=== PATIENT | female | born 1935 | race Caucasian/White ===

== ENCOUNTER 2019-10-31 01:27 | Inpatient (IN) | payer MEDICARE, BC ==
[2019-10-31] MEDS ORDERED: NALOXONE 0.4 MG/ML 1 ML VIAL IV PRN (02:24)
[2019-10-31] MEDS: SODIUM CHLORIDE 0.9% 1,000 ML IV SCH ×3 (02:55→21:18)
[2019-10-31] MEDS: MORPHINE SULFATE 4 MG/ML SYRINGE IV PRN ×2 (03:24→11:26)
--- NOTE | 2019-10-31 03:48 | ED ---
Abdominal Pain HPI - General Chief Complaint: Abdominal Pain Stated Complaint: Abd pain Time Seen by Provider: 10/31/19 01:57 Source: patient, EMS Mode of arrival: EMS Limitations: no limitations - History of Present Illness Initial Comments: This patient is an 84-year-old woman who arrives here is transferred from [facility], where she had gone this evening to be evaluated for abdominal pain. The patient states that it felt very similar to previous episode of bowel obstruction that she had had. The patient had a computed tomography scan performed there which showed ileus versus small bowel obstruction, with concern for possible malignant obstruction. In light of this patient transferred here for further evaluation and treatment. MD Complaint: abdominal pain -: hour(s) Location: LUQ, LLQ Radiation: none Migration to: no migration Severity: moderate Quality: cramping, fullness Consistency: constant Improves With: nothing Worsens With: nothing Associated Symptoms: constipation - Related Data Allergies Allergy/AdvReac Type Severity Reaction Status Date / Time nitrofurantoin Allergy Unknown Verified 10/31/19 01:44 [From Macrobid] Cfikenr-Vnl-Jxg Reductase Allergy Unknown Verified 10/31/19 01:44 Inhibitor cortisone AdvReac Unknown Verified 10/31/19 01:44 Review of Systems ROS Statement: Those systems with pertinent positive or pertinent negative responses have been documented in the HPI. ROS Other: All systems not noted in ROS Statement are negative. Constitutional: Denies: fever, chills Respiratory: Denies: cough, dyspnea Cardiovascular: Denies: chest pain, palpitations Gastrointestinal: Reports: as per HPI, abdominal pain, constipation. Denies: nausea, vomiting, diarrhea, hematemesis, melena, hematochezia Genitourinary: Denies: dysuria, hematuria Musculoskeletal: Denies: back pain Skin: Denies: rash Neurological: Denies: headache, weakness, numbness Past Medical History Past Medical History: COPD, Hyperlipidemia, Hypertension, Thyroid Disorder History of Any Multi-Drug Resistant Organisms: None Reported Past Surgical History: Appendectomy, Cholecystectomy, Hysterectomy Additional Past Surgical History / Comment(s): lung removal, subarachnoid hemmorrhage, AAA repair,. Past Psychological History: No Psychological Hx Reported Smoking Status: Former smoker Past Alcohol Use History: Occasional Past Drug Use History: None Reported General Exam Limitations: no limitations General appearance: alert, in no apparent distress Head exam: Present: atraumatic, normocephalic Eye exam: Present: normal appearance ENT exam: Present: normal oropharynx Respiratory exam: Present: normal lung sounds bilaterally. Absent: respiratory distress, wheezes, rales, rhonchi, stridor Cardiovascular Exam: Present: regular rate, normal rhythm, normal heart sounds. Absent: systolic murmur, diastolic murmur, rubs, gallop GI/Abdominal exam: Present: soft, tenderness (Mild diffuse tenderness without rebound or guarding). Absent: distended, guarding, rebound, rigid, pulsatile mass Extremities exam: Present: normal inspection, normal capillary refill. Absent: pedal edema, calf tenderness Back exam: Present: normal inspection. Absent: CVA tenderness (R), CVA tenderness (L) Neurological exam: Present: alert Skin exam: Present: warm, dry, intact, normal color. Absent: rash Course Vital Signs 10/31/19 10/31/19 01:34 02:57 Temperature 97.8 F 98.1 F Pulse Rate 85 83 Respiratory 20 18 Rate Blood Pressure 128/58 124/73 O2 Sat by Pulse 98 98 Oximetry Disposition Clinical Impression: Abdominal pain, Small bowel obstruction Narrative: Ileus versus small bowel obstruction Disposition: ADMITTED IP TO THIS HOSP Condition: Fair Is patient prescribed a controlled substance at d/c from ED?: No
[2019-10-31] MEDS ORDERED: ALBUTEROL NEBULIZED 2.5 MG/3 ML INHALATION PRN (10:59)
[2019-10-31] MEDS: amLODIPine 5 MG TAB PO SCH (11:26)
[2019-10-31] MEDS: LOSARTAN 50 MG TAB PO SCH (11:26)
[2019-10-31] MEDS: SYMBICORT 160-4.5 MCG INHALER INHALATION SCH ×2 (12:00→21:47)
--- NOTE | 2019-10-31 13:43 | P.GSCN ---
History of Present Illness Consult date: 10/31/19 Reason for Consult: Abdominal pain History of present illness: The patient is a pleasant 84-year-old female who is transferred from [facility] for abdominal pain. She had an episode of similar pain recently and was treated at [facility]. Sounds like she had a nasogastric tube placed a couple of days and got better. The patient had been taking fiber supplements and Dulcolax daily and had felt a little better. She developed pain in the left lower quadrant so returned to the emergency department. Computed tomography scan was concerning for a possible sigmoid colon obstruction. The patient is never had a colonoscopy or barium enema in the past. She does admit to a family history of her mother who was treated with radiation therapy. Patient denies blood in the stools or dark tarry stools. She feels very bloated and distended. 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 She did not have any postoperative radiation) Additional Past Surgical History / Comment(s): left upper lobe lung removal, subarachnoid hemmorrhage, AAA repair Past Psychological History: No Psychological Hx Reported Smoking Status: Former smoker Past Alcohol Use History: Occasional Past Drug Use History: None Reported Medications and Allergies Home Medications Medication Instructions Recorded Confirmed Type ALPRAZolam [Xanax] 0.25 mg PO BID PRN 10/31/19 10/31/19 History Albuterol Inhaler [Ventolin Hfa 2 puff INHALATION RT-QID PRN 10/31/19 10/31/19 History Inhaler] Budesonide-Formot 160-4.5 Mcg 2 puff INHALATION BID 10/31/19 10/31/19 History [Symbicort 160-4.5 Mcg Inhaler] Furosemide [Lasix] 20 mg PO DAILY 10/31/19 10/31/19 History Losartan Potassium 100 mg PO DAILY 10/31/19 10/31/19 History Multivitamins, Thera [Multivitamin 1 tab PO DAILY 10/31/19 10/31/19 History (formulary)] Potassium Chloride [Klor-Con 20] 20 meq PO BID 10/31/19 10/31/19 History Spironolactone 25 mg PO DAILY 10/31/19 10/31/19 History amLODIPine [Norvasc] 5 mg PO DAILY 10/31/19 10/31/19 History Allergies Allergy/AdvReac Type Severity Reaction Status Date / Time nitrofurantoin Allergy Unknown Verified 10/31/19 09:05 [From Macrobid] Wtuafbj-Qog-Lob Reductase Allergy Unknown Verified 10/31/19 09:05 Inhibitor cortisone AdvReac Unknown Verified 10/31/19 09:05 Surgical - Exam Osteopathic Statement: *. No significant issues noted on an osteopathic structural exam other than those noted in the History and Physical/Consult. Vital Signs Temp Pulse Resp BP Pulse Ox 97.8 F 85 20 128/58 98 10/31/19 01:34 10/31/19 01:34 10/31/19 01:34 10/31/19 01:34 10/31/19 01:34 - General well developed, well nourished, no distress - Eyes normal ocular movement - ENT decreased hearing (I have to speak louder but the patient does comprehend everything I am saying) - Respiratory normal expansion, normal respiratory effort, clear to auscultation - Cardiovascular Rhythm: regular - Abdomen Abdomen: non tender, bowel sounds, surgical scars (Lower midline abdominal scar), no guarding, no rigid, no rebound, distended (Tympanitic across the upper abdomen) - Psychiatric oriented to time, oriented to person, oriented to place, speech is normal, memory intact Results - Imaging CT scan - abdomen: report reviewed, image reviewed (Dilation of large and small bowel. Concerning for stricture or obstruction in the sigmoid colon) Assessment and Plan (1) Dilatation of colon Current Visit: Yes Status: Acute Code(s): K59.39 - OTHER MEGACOLON SNOMED Code(s): 659599002 (2) COPD (chronic obstructive pulmonary disease) Current Visit: Yes Status: Acute Code(s): J44.9 - CHRONIC OBSTRUCTIVE PULMONARY DISEASE, UNSPECIFIED SNOMED Code(s): 33596811 (3) Hypertension Current Visit: Yes Status: Acute Code(s): I10 - ESSENTIAL (PRIMARY) HYPERTENSION SNOMED Code(s): 18192305 (4) Hyperlipidemia Current Visit: Yes Status: Acute Code(s): E78.5 - HYPERLIPIDEMIA, UNSPECIFIED SNOMED Code(s): 05958570 Plan: Presentation is concerning for a sigmoid colon stricture. We'll order some enemas to try to stimulate evacuation from below. Order single-contrast barium enema to confirm stricture. If there is a stricture she will need a laparotomy with diversion. Nursing was unable to pass a nasogastric tube. She'll remain nothing by mouth. Further recommendations to follow.
--- NOTE | 2019-10-31 17:40 | P.HPIM ---
History of Present Illness H&P Date: 10/31/19 Chief Complaint: Abdominal distention History of presenting complaint: This is a pleasant 84-year-old patient of Dr. Crowley. Chronic stable medical conditions include COPD, hyperlipidemia, hypertension, thyroid nodule, cervical cancer with hysterectomy. Patient also had left upper lobe of the lung removed. History of subarachnoid hemorrhage. Patient was at [facility] from September 05 to September 12 with what she described as ileus. 4 days ago she started having increasing abdominal distention and abdominal pain. Some nausea. Also having significant spasms. Her last bowel movement was 2 days ago. Denied any fevers. At [facility] she presented there again was found to have an obstruction. It could not be secondary to his ileus versus mechanical obstruction. There was some stricture reported in the sigmoid area. General surgery was consulted. Admitted for the same. Norcet Kaletra with NG tube was unsuccessful. Dr. Frances was informed. Review of systems: GEN.: Tired EYES: None HEENT: None NECK: None RESPIRATORY: None CARDIOVASCULAR: None GASTROINTESTINAL: As above GENITOURINARY: None MUSCULOSKELETAL: Joint pains especially the knees LYMPHATICS: None HEMATOLOGICAL: None PSYCHIATRY: None NEUROLOGICAL: None Past medical history to include: COPD, hyperlipidemia, hypertension, thyroid nodule, cervical cancer, subarachnoid hemorrhage, AAA repair, left upper lobe of the lung removed Social history: Patient smoked for close to 69 is about 2 packs a day stopped about 12 years ago. Patient is a . Family history: Reviewed, noncontributory to presentation Physical examination: VITAL SIGNS: 97.8, 85, 20, 128/58, 98% on 2 L GENERAL: BMI 31, laying in bed somewhat uncomfortable. EYES: Pupils equal. Conjunctiva normal. HEENT: External appearance of nose and ears normal, oral cavity grossly normal. NECK: JVD not raised; masses not palpable. HEART: First and second heart sounds are normal; no edema. LUNGS: Respiratory rate normal; decreased breath sounds. ABDOMEN: Distended, mild diffuse tenderness, hyperactive bowel sounds,, liver spleen not palpable, no masses palpable. PSYCH: Alert and oriented x3; mood and affect normal. NEUROLOGICAL: Cranial nerves grossly intact; no facial asymmetry, power and sensation grossly intact. MUSCULOSKELETAL: Evidence of OA LYMPHATICS: No lymph nodes palpable in the axilla and neck INVESTIGATIONS, reviewed in the clinical context: Blood work done in the [facility] in the chart Assessment: -This is a patient with a diagnosis of ileus was admitted to [facility] from September 0807/15. Now presents for days of increasing abdominal distention pain bladder spasms nausea. No fever no chills. Computed tomography scan as mentioned above for possible stricture in the sigmoid area. Earlier return by the nursing for NG tube was unsuccessful. -COPD in an ex-smoker -Essential hypertension -Hyperlipidemia -Obesity BMI 31 Plan: Consultations made to general surgery. NG tube should be inserted. IV fluids. Home medications resumed. Patient's been made nothing by mouth. Lovenox for DVT prophylaxis. Care was discussed with the patient. Questions were answered. Repeat labs in the morning. 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; CERVICAL CANCER History of Any Multi-Drug Resistant Organisms: None Reported Past Surgical History: Appendectomy, Cholecystectomy, Hysterectomy Additional Past Surgical History / Comment(s): left upper lobe lung removal, subarachnoid hemmorrhage, AAA repair Past Psychological History: No Psychological Hx Reported Smoking Status: Former smoker Past Alcohol Use History: Occasional Past Drug Use History: None Reported Medications and Allergies Home Medications Medication Instructions Recorded Confirmed Type ALPRAZolam [Xanax] 0.25 mg PO BID PRN 10/31/19 10/31/19 History Albuterol Inhaler [Ventolin Hfa 2 puff INHALATION RT-QID PRN 10/31/19 10/31/19 History Inhaler] Budesonide-Formot 160-4.5 Mcg 2 puff INHALATION BID 10/31/19 10/31/19 History [Symbicort 160-4.5 Mcg Inhaler] Furosemide [Lasix] 20 mg PO DAILY 10/31/19 10/31/19 History Losartan Potassium 100 mg PO DAILY 10/31/19 10/31/19 History Multivitamins, Thera [Multivitamin 1 tab PO DAILY 10/31/19 10/31/19 History (formulary)] Potassium Chloride [Klor-Con 20] 20 meq PO BID 10/31/19 10/31/19 History Spironolactone 25 mg PO DAILY 10/31/19 10/31/19 History amLODIPine [Norvasc] 5 mg PO DAILY 10/31/19 10/31/19 History Allergies Allergy/AdvReac Type Severity Reaction Status Date / Time nitrofurantoin Allergy Unknown Verified 10/31/19 09:05 [From Macrobid] Xavzjcz-Uvt-Wyt Reductase Allergy Unknown Verified 10/31/19 09:05 Inhibitor cortisone AdvReac Unknown Verified 10/31/19 09:05 Physical Exam Vitals: Vital Signs Temp Pulse Pulse Resp BP BP Pulse Ox 10/31/19 08:00 86 18 10/31/19 07:10 98.2 F 86 18 147/83 10/31/19 05:30 98.2 F 82 16 160/79 99 10/31/19 02:57 98.1 F 83 18 124/73 98 10/31/19 01:34 97.8 F 85 20 128/58 98 Intake and Output 10/30/19 10/31/19 10/31/19 22:59 06:59 14:59 Other: Voiding Method Toilet # Voids 1 Weight 74.389 kg
[2019-10-31] MEDS: ONDANSETRON 4 MG/2 ML VIAL IVP PRN (20:25)
[2019-10-31] MEDS: ENOXAPARIN 40 MG/0.4 ML SYRINGE SQ SCH (20:26)
[2019-10-31 20:36] LABS: Glucose,Whole Blood 89 mg/dL (75-99)
[2019-11-01] MEDS: SODIUM CHLORIDE 0.9% 1,000 ML IV SCH ×2 (03:30→07:44)
[2019-11-01] MEDS: LOSARTAN 50 MG TAB PO SCH (07:42)
[2019-11-01] MEDS: ENOXAPARIN 40 MG/0.4 ML SYRINGE SQ SCH (07:42)
[2019-11-01] MEDS: amLODIPine 5 MG TAB PO SCH (07:42)
[2019-11-01] MEDS: ONDANSETRON 4 MG/2 ML VIAL IVP PRN (07:42)
[2019-11-01] MEDS: SYMBICORT 160-4.5 MCG INHALER INHALATION SCH ×2 (08:15→21:13)
[2019-11-01 08:30] LABS: Basophils % (A) 0 %; Eosinophils # (A) 0.1 k/uL (0-0.7); Eosinophils % (A) 1 %; HCT 43.6 % (34.0-46.0); HGB 13.7 gm/dL (11.4-16.0); Lymphocytes # (A) 1.5 k/uL (1.0-4.8); Lymphocytes % (A) 16 %; MCHC 31.5 g/dL (31.0-37.0); MCV 98.4 fL (80.0-100.0); Mean Platelet Volume 6.9; Monocytes # (A) 0.4 k/uL (0-1.0); Monocytes % (A) 5 %; Neutrophils # (A) 7.3 k/uL (1.3-7.7); Neutrophils % (A) 77 %; Platelet Count 378 k/uL (150-450); RBC 4.43 m/uL (3.80-5.40); RDW 13.5 % (11.5-15.5); WBC 9.5 k/uL (3.8-10.6)
[2019-11-01 08:42] LABS: African American GFR (CKD) >90 (>60 ml/min/1.73 sqM); Anion Gap 9 mmol/L; Blood Urea Nitrogen 13 mg/dL (7-17); Calcium 8.9 mg/dL (8.4-10.2); Carbon Dioxide 18 mmol/L (22-30); Chloride 107 mmol/L (98-107); Glucose 73 mg/dL (74-99); Magnesium 2.1 mg/dL (1.6-2.3); Non-African American GFR(CKD) 81 (>60 ml/min/1.73 sqM); Potassium 4.2 mmol/L (3.5-5.1); Sodium 134 mmol/L (137-145)
[2019-11-01] MEDS: ACETAMINOPHEN TAB 325 MG TAB PO PRN (11:26)
--- NOTE | 2019-11-01 12:10 | P.PN ---
Subjective on-call hospitalist covering for Dr. Garcia From the records This is a pleasant 84-year-old patient of Dr. Crowley. Chronic stable medical conditions include COPD, hyperlipidemia, hypertension, thyroid nodule, cervical cancer with hysterectomy. Patient also had left upper lobe of the lung removed. History of subarachnoid hemorrhage. Patient was at [facility] from September 05 to September 12 with what she described as ileus. 4 days ago she started having increasing abdominal distention and abdominal pain. Some nausea. Also having significant spasms. Her last bowel movement was 2 days ago. Denied any fevers. At [facility] she presented there again was found to have an obstruction. It could not be secondary to his ileus versus mechanical obstruction. There was some stricture reported in the sigmoid area. General surgery was consulted. Admitted for the same. Norcet Kaletra with NG tube was unsuccessful. Dr. Frances was informed. 11/01/2019 Patient presents with signs and symptoms of bowel obstruction. Barium enema showing stricture in the sigmoid colon. Discussed the case with surgery team and Dr. Frances the planned for the patient is for surgical resection and temporal colostomy possible today or tomorrow. Patient is aware and she agrees with the treatment plan. Risks including but not limited to cancer are explained for the patient and she agrees. Review of systems CONSTITUTIONAL: No fever, no malaise, no fatigue. HEENT: No recent visual problems or hearing problems. Denied any sore throat. CARDIOVASCULAR: No orthopnea, PND, no palpitations, no syncope. PULMONARY: No shortness of breath, no cough, no hemoptysis. NEUROLOGICAL: No headaches, no weakness, no numbness. HEMATOLOGICAL: Denies any bleeding or petechiae. GENITOURINARY: Denies any burning micturition, frequency, or urgency. MUSCULOSKELETAL/RHEUMATOLOGICAL: Denies any joint pain, swelling, or any muscle pain. ENDOCRINE: Denies any polyuria or polydipsia. Active Medications Generic Name Dose Route Start Last Admin Trade Name Freq PRN Reason Stop Dose Admin Acetaminophen 650 mg 10/31/19 02:24 11/01/19 11:26 Tylenol Tab PO 650 mg Q6HR PRN Administration Mild Pain or Fever > 100.5 Albuterol Sulfate 2.5 mg 10/31/19 10:59 Ventolin Nebulized INHALATION RT-QID PRN Shortness Of Breath Alprazolam 0.25 mg 10/31/19 10:59 Xanax PO BID PRN Anxiety Amlodipine Besylate 5 mg 10/31/19 11:00 11/01/19 07:42 Norvasc PO 5 mg DAILY DEBRA Administration Budesonide/Formoterol Fumarate 2 puff 10/31/19 12:00 11/01/19 08:15 Symbicort 160-4.5 Mcg Inhaler INHALATION 2 puff BID DEBRA Administration Enoxaparin Sodium 40 mg 10/31/19 17:45 11/01/19 07:42 Lovenox SQ 40 mg DAILY DEBRA Administration Sodium Chloride 1,000 mls @ 75 mls/hr 10/31/19 02:30 11/01/19 07:44 Saline 0.9% IV 125 mls/hr .[id number] DEBRA Administration Losartan Potassium 100 mg 10/31/19 11:00 11/01/19 07:42 Cozaar PO 100 mg DAILY DEBRA Administration Morphine Sulfate 4 mg 10/31/19 03:06 10/31/19 11:26 Morphine Sulfate (Inj) IV 4 mg Q3H PRN Administration Pain Naloxone HCl 0.2 mg 10/31/19 02:24 Narcan IV Q2M PRN Opioid Reversal Ondansetron HCl 4 mg 10/31/19 02:24 11/01/19 07:42 Zofran IVP 4 mg Q8HR PRN Administration Nausea And Vomiting Objective - Vital Signs Vital signs: Vital Signs Temp 97.9 F 11/01/19 07:00 Pulse 84 11/01/19 07:00 Resp 18 11/01/19 07:00 BP 144/71 11/01/19 07:00 Pulse Ox 97 11/01/19 07:00 Intake & Output 10/31/19 11/01/19 11/01/19 18:59 06:59 18:59 Intake Total 700 1800 Balance 700 1800 Intake: Intake, IV Titration 700 1800 Amount Sodium Chloride 0.9% 1, 700 1800 000 ml @ 100 mls/hr IV . Q10H DEBRA Rx#:[id number] Other: Voiding Method Toilet Bedside Commode Toilet # Voids 1 2 - Exam GENERAL: The patient is alert and oriented x3, not in any acute distress. Well developed, well nourished. HEENT: Pupils are round and equally reacting to light. EOMI. No scleral icterus. No conjunctival pallor. Normocephalic, atraumatic. No pharyngeal erythema. No thyromegaly. CARDIOVASCULAR: S1 and S2 present. No murmurs, rubs, or gallops. PULMONARY: Chest is clear to auscultation, no wheezing or crackles. ABDOMEN: Soft, nontender, nondistended, normoactive bowel sounds. No palpable organomegaly. MUSCULOSKELETAL: No joint swelling or deformity. EXTREMITIES: No cyanosis, clubbing, or pedal edema. NEUROLOGICAL: Gross neurological examination did not reveal any focal deficits. SKIN: No rashes. no petechiae. - Labs CBC & Chem 7: 11/01/19 07:43 11/01/19 08:04 Labs: Abnormal Lab Results - Last 24 Hours (Table) 11/01/19 Range/Units 08:04 Sodium 134 L (137-145) mmol/L Carbon Dioxide 18 L (22-30) mmol/L Glucose 73 L (74-99) mg/dL Assessment and Plan Assessment: -sigmoid stricture, going for surgical resection -COPD in an ex-smoker -Essential hypertension -Hyperlipidemia -Obesity BMI 31 Plan: this is a pleasant 84 years old female who presents with sigmoid stricture. Surgery team are on the case and the planned for surgical resection. Continue with gentle hydration. Pain management. Labs and medication were reviewed.. Continue same treatment. Continue with symptomatic treatment. Resume home medication. Monitor lytes and vitals. DVT and GI prophylaxis. Further recommendations of the clinical course of the patient DVT prophylaxis: Subcutaneous Lovenox GI Prophylaxis: Pepcid Prognosis is guarded
--- NOTE | 2019-11-01 12:41 | FL ---
EXAMINATION TYPE: FL barium enema DATE OF EXAM: 11/01/2019 COMPARISON: Outside CT abdomen and pelvis October 30, 2019. HISTORY: History of cervical cancer with recent abnormal CT, rule out sigmoid colonic obstruction TECHNIQUE: A limited single contrast barium enema study is performed as requested. Total 2 minutes 1 7 seconds of fluoroscopic time. 19 spot images of the PACS. FINDINGS: Radiology Services Manager view of the abdomen shows aortobiiliac stent graft. Persistent gas-filled dilated co patrick in the left mid abdomen identified. Sigmoid obstruction suspected on review of recent CT. Note is suboptimal due to patient's limited mobility and inability to hold contrast with leak through out the attempted study. There is redemonstration of a few scattered diverticula in the mid to distal sigmoid colon. Corresponding to CT there is a irregular mucosal narrow channel appearance over a brandy rt segment in the proximal sigmoid colon that has shouldering in the distal segment. Continued contra st injection shows a second abnormal outpouching just inferior to this with continued contrast irregu lar filling into a more globular segment. At this point procedure was terminated . Appendix and terminal ileum were not filled. There was no filling past the proximal sigmoid colon lev el IMPRESSION: Suboptimal study, proximal sigmoid colonic obstruction likely secondary to focal neopla sm at this level. Perforation likely due to friable mucosa related to tumor occurred at time of study . Critical results communicated to patient's nurse via telephone at time of dictation. A [place] level critical message alert has been initiated for Triny Frances DO via the [employer] Critical Results System on 11/01/2019 12:38 PM. This message alert has been sent to Triny Frances DO vi a the preferences provided by the clinician for the receipt of Radiology Critical Findings. Message I D [id number].
[2019-11-01 12:48] LABS: INR 0.9 (<1.2); Partial Thromboplastin Time 26.5 sec (22.0-30.0); Prothrombin Time 9.8 sec (9.0-12.0)
[2019-11-01] MEDS ORDERED: LACTATED RINGERS 1,000 ML IV ONE ×2 (13:39→15:30)
[2019-11-01] MEDS ORDERED: DEXAMETHASONE SOD PHOSPHATE 10 MG/ML 1 ML VIAL IV ONE (13:50)
[2019-11-01] MEDS ORDERED: ONDANSETRON 4 MG/2 ML VIAL IVP ONE (13:50)
[2019-11-01] MEDS ORDERED: LIDOCAINE 1% INJ 10MG/ML (20 ML MDV) ONE (14:35)
[2019-11-01] MEDS ORDERED: SUCCINYLCHOLINE CHLORIDE 100 MG/5 ML SYR IV ONE (14:35)
[2019-11-01] MEDS ORDERED: NEOSTIGMINE 1 MG/ML 10 ML VIAL ONE (14:35)
[2019-11-01] MEDS ORDERED: PROPOFOL 10 MG/ML 20 ML VIAL IV ONE (14:35)
[2019-11-01] MEDS ORDERED: ROCURONIUM BROMIDE 10 MG/ML 5 ML VIAL IV ONE (14:35)
[2019-11-01] MEDS ORDERED: fentaNYL (PF) 50 MCG/ML 2 ML AMP ONE (14:35)
[2019-11-01] MEDS ORDERED: GLYCOPYRROLATE 0.2 MG/ML 2 ML VIAL ONE (14:35)
[2019-11-01] MEDS ORDERED: METHYLENE BLUE 10 MG/ML (10 ML VIAL) ONE (14:35)
[2019-11-01] MEDS ORDERED: METOPROLOL TARTRATE 5 MG/5 ML VIAL IVP ONE (14:35)
[2019-11-01] MEDS ORDERED: metroNIDAZOLE-NS PMX 500 MG in SALINE 1 100ML.BAG IVPB STA (14:51)
--- NOTE | 2019-11-01 14:51 | P.PN ---
Progress Note - Text Progress Note Date: 11/01/19 The patient's barium enema was reviewed. There is a sigmoid obstruction. The patient was seen immediately after the procedure and had no acute abdominal pain. The radiologist was concerned about a small perforation however. I discussed the findings with the patient. This is concerning for an obstructing colon cancer. Recommend a laparotomy with sigmoid resection and colostomy formation. Her, risks, complications were discussed. Questions were encouraged and answered. I spoke with her daughter via phone. She'll proceed to OR today.
--- NOTE | 2019-11-01 17:40 | P.OP ---
Date of Procedure: 11/01/19 Preoperative Diagnosis: Large bowel obstruction Postoperative Diagnosis: Large bowel obstruction Procedure(s) Performed: Low anterior resection of the colon with colostomy formation Anesthesia: BRITTNEY Surgeon: Triny Frances Enrobing Machine Operator #1: Ramez Wasserman Pathology: other Condition: stable Disposition: PACU Indications for Procedure: The patient presented clinically with a markedly distended abdomen. CT was concerning for a colon obstruction which was verified with a barium enema Description of Procedure: The patient's taken the operative suite where she is prepped and draped in the usual sterile manner under general endotracheal anesthetic. The abdomen is entered through a midline incision. The colon is markedly dilated. The small bowel was packed out of the way with lap pads and a Bookwalter retractor was placed. Site was chosen for proximal resection and an opening was made in the mesentery. A ALYSA 75 stapler was placed and fired. An additional load was needed. Then the specimen was tediously dissected free. Through manipulation of the distal section an enterotomy occurred in the colon. It was not at the staple line. There was leakage of enteric contents. This was aspirated and then the pelvis was irrigated. Gloves were changed. It was a large bulky tumor. It was adherent to her vaginal cuff and the sidewalls. Course of the ureters was identified. Dr. Wasserman was kind enough to come in and assist. The sigmoidal vessels were identified. They were clamped cut and tied. The presacral space was unable to be entered. It was freed up. There were bulky nodes noted in the mesentery. The lateral attachments were taken down. The vaginal cuff was then taken off the rectum. Dissection was able to be carried out low enough that the bowel softened up. A contour stapler was unable to be placed and fired. Gloves were then changed. The pelvis was irrigated and aspirated. The rectal stump was tagged with 3-0 Vicryl. The small bowel was then allowed to lay in gentle loops. The Bookwalter retractor was removed. The white line of Toldt was then taken down to mobilize the colon. The splenic flexure was very high and tightly adherent to the spleen. Therefore was not mobilized. An incision was then made in the left lateral abdomen. The skin and subcutaneous tissues were dissected free. The fascia was split. The muscle was split. The posterior fashion peritoneum was split. The descending colon was brought up through that opening. Seromuscular sutures of the bowel were made and this was tacked to the posterior fascia and peritoneum. Omentum was then allowed to lay over the small bowel. The fascia and peritoneum was closed with 1 PDS. The skin was loosely approximated with priscila lora of [employer] were placed. The incision was covered with a towel. The ostomy was then matured. Bites were taken of the anterior fascia and seromuscular layer of the bowel. Once those were placed the staple line was resected. The cut edge of the bowel was everted taking full-thickness bites of the bowel inverted dermal stitches of the skin and then seromuscular bites. The skin edges were tacked to the bowel wall using 3-0 chromic. Ostomy appliance was placed she tolerated the procedure without difficulty and was taken recovery room in satisfactory condition. According to or personnel, all counts were correct.
[2019-11-01] MEDS ORDERED: ePHEDrine 50 MG/ML 1 ML AMP IVP ONE (18:05)
[2019-11-01] MEDS: HYDROmorphone 0.5 MG/0.5 ML SYRINGE IVP ONE ×2 (18:43→18:49)
[2019-11-01] MEDS ORDERED: SODIUM CHLORIDE 0.9% 1,000 ML IV ONE (19:11)
[2019-11-01] MEDS: HYDROmorphone 0.5 MG/0.5 ML SYRINGE IVP PRN (20:52)
[2019-11-01] MEDS: FAMOTIDINE 20 MG/2 ML VIAL IV SCH (20:53)
[2019-11-02] MEDS: HYDROmorphone 0.5 MG/0.5 ML SYRINGE IVP PRN ×2 (01:09→07:38)
[2019-11-02] MEDS: D5-0.45% NACL WITH KCL 20MEQ/L 1,000 ML IV SCH ×3 (01:15→20:58)
[2019-11-02] MEDS: METOCLOPRAMIDE 5 MG/ML 2 ML VIAL IVP SCH ×6 (01:16→23:24)
[2019-11-02] MEDS: SODIUM CHLORIDE 0.9% 1,000 ML IV SCH ×2 (03:17→20:49)
[2019-11-02] MEDS: ALPRAZolam 0.25 MG TAB PO PRN (03:59)
[2019-11-02] MEDS: amLODIPine 5 MG TAB PO SCH (07:37)
[2019-11-02] MEDS: PANTOPRAZOLE 40 MG/10 ML VIAL IV SCH (07:37)
[2019-11-02] MEDS: ENOXAPARIN 40 MG/0.4 ML SYRINGE SQ SCH (07:37)
[2019-11-02] MEDS: LOSARTAN 50 MG TAB PO SCH (07:37)
[2019-11-02] MEDS: FAMOTIDINE 20 MG/2 ML VIAL IV SCH (07:40)
[2019-11-02] MEDS: SYMBICORT 160-4.5 MCG INHALER INHALATION SCH ×2 (08:07→20:47)
[2019-11-02 08:39] LABS: Basophils % (A) 0 %; Eosinophils # (A) 0.1 k/uL (0-0.7); Eosinophils % (A) 0 %; HCT 34.7 % (34.0-46.0); HGB 11.3 gm/dL (11.4-16.0); Hypochromasia Slight; Lymphocytes # (A) 1.2 k/uL (1.0-4.8); Lymphocytes % (A) 5 %; MCH 32.9 pg (25.0-35.0); MCHC 32.5 g/dL (31.0-37.0); MCV 101.2 fL (80.0-100.0); Macrocytosis Slight; Mean Platelet Volume 7.2; Monocytes # (A) 1.4 k/uL (0-1.0); Monocytes % (A) 6 %; Neutrophils # (A) 21.2 k/uL (1.3-7.7); Neutrophils % (A) 88 %; Platelet Count 357 k/uL (150-450); RBC 3.42 m/uL (3.80-5.40); RDW 13.8 % (11.5-15.5); WBC 24.2 k/uL (3.8-10.6)
[2019-11-02 09:47] LABS: Albumin 2.7 g/dL (3.5-5.0); Calcium 8.3 mg/dL (8.4-10.2); Potassium 4.8 mmol/L (3.5-5.1); Total Bilirubin 0.6 mg/dL (0.2-1.3); Total Protein 5.2 g/dL (6.3-8.2)
[2019-11-02] MEDS ORDERED: HYDROmorphone 1 MG/ML 1 ML SYRINGE IVP PRN (10:01)
--- NOTE | 2019-11-02 10:11 | P.PN ---
Subjective on-call hospitalist covering for Dr. Garcia From the records This is a pleasant 84-year-old patient of Dr. Crowley. Chronic stable medical conditions include COPD, hyperlipidemia, hypertension, thyroid nodule, cervical cancer with hysterectomy. Patient also had left upper lobe of the lung removed. History of subarachnoid hemorrhage. Patient was at [facility] from September 05 to September 12 with what she described as ileus. 4 days ago she started having increasing abdominal distention and abdominal pain. Some nausea. Also having significant spasms. Her last bowel movement was 2 days ago. Denied any fevers. At [facility] she presented there again was found to have an obstruction. It could not be secondary to his ileus versus mechanical obstruction. There was some stricture reported in the sigmoid area. General surgery was consulted. Admitted for the same. Norcet Kaletra with NG tube was unsuccessful. Dr. Frances was informed. 11/01/2019 Patient presents with signs and symptoms of bowel obstruction. Barium enema showing stricture in the sigmoid colon. Discussed the case with surgery team and Dr. Frances the planned for the patient is for surgical resection and temporal colostomy possible today or tomorrow. Patient is aware and she agrees with the treatment plan. Risks including but not limited to cancer are explained for the patient and she agrees. 11/02/2019 Patient status post low anterior resection of the colon with colostomy formation on 10/31, today is postop day #1.she is in [id number] distress due to surgical site pain, she denies coughing, no nausea vomiting, she has left colostomy back in the left lower abdomen with some a brown stool. Surgical site clean with dressing is placed.Menon catheter is in a Place labs today showing leukocytosis of20 4.2K, sodium 134, creatinine is elevated at 1.4. She already got at cefazolin and metronidazole.we will start her on Zosyn colon biopsies pending we increased her Dilaudid because of her uncontrolled pain.continue with normal saline at 75 mL/h, we will increase to 100 mL per hour Review of systems CONSTITUTIONAL: No fever, no malaise, no fatigue. HEENT: No recent visual problems or hearing problems. Denied any sore throat. CARDIOVASCULAR: No orthopnea, PND, no palpitations, no syncope. PULMONARY: No shortness of breath, no cough, no hemoptysis. GASTROINTESTINAL: No diarrhea, no nausea, no vomiting NEUROLOGICAL: No headaches, no weakness, no numbness. HEMATOLOGICAL: Denies any bleeding or petechiae. GENITOURINARY: Denies any burning micturition, frequency, or urgency. MUSCULOSKELETAL/RHEUMATOLOGICAL: Denies any joint pain, swelling, or any muscle pain. ENDOCRINE: Denies any polyuria or polydipsia. Active Medications Generic Name Dose Route Start Last Admin Trade Name Freq PRN Reason Stop Dose Admin Acetaminophen 650 mg 10/31/19 02:24 11/01/19 11:26 Tylenol Tab PO 650 mg Q6HR PRN Administration Mild Pain or Fever > 100.5 Albuterol Sulfate 2.5 mg 10/31/19 10:59 Ventolin Nebulized INHALATION RT-QID PRN Shortness Of Breath Alprazolam 0.25 mg 10/31/19 10:59 11/02/19 03:59 Xanax PO 0.25 mg BID PRN Administration Anxiety Amlodipine Besylate 5 mg 10/31/19 11:00 11/02/19 07:37 Norvasc PO 5 mg DAILY DEBRA Administration Budesonide/Formoterol Fumarate 2 puff 10/31/19 12:00 11/02/19 08:07 Symbicort 160-4.5 Mcg Inhaler INHALATION 2 puff BID DEBRA Administration Enoxaparin Sodium 40 mg 10/31/19 17:45 11/02/19 07:37 Lovenox SQ 40 mg DAILY DEBRA Administration Famotidine 10 mg 11/01/19 21:00 11/02/19 07:40 Pepcid IV 10 mg Q12HR DEBRA Administration Hydromorphone HCl 1 mg 11/02/19 10:01 Dilaudid IVP Q3HR PRN MODERATE TO SEVERE Pain Sodium Chloride 1,000 mls @ 100 mls/hr 10/31/19 02:30 11/02/19 03:17 Saline 0.9% IV Not Given .Q10H DEBRA Potassium Chloride/Dextrose/Sod Cl 1,000 mls @ 100 mls/hr 11/01/19 17:45 11/02/19 05:44 D5%-1/2ns-Kcl 20 Meq/L Iv Solution IV 100 mls/hr .Q10H DEBRA Administration Piperacillin Sod/Tazobactam 100 mls @ 25 mls/hr 11/02/19 10:02 Sod 3.375 gm/ Sodium Chloride IVPB Q12HR DEBRA Losartan Potassium 100 mg 10/31/19 11:00 11/02/19 07:37 Cozaar PO 100 mg DAILY DEBRA Administration Metoclopramide HCl 10 mg 11/01/19 17:45 11/02/19 05:44 Reglan IVP 11/02/19 23:46 10 mg Q6H DEBRA Administration Naloxone HCl 0.2 mg 10/31/19 02:24 Narcan IV Q2M PRN Opioid Reversal Ondansetron HCl 4 mg 10/31/19 02:24 11/01/19 07:42 Zofran IVP 4 mg Q8HR PRN Administration Nausea And Vomiting Pantoprazole Sodium 40 mg 11/02/19 09:00 11/02/19 07:37 Protonix IV 40 mg DAILY DEBRA Administration Objective - Vital Signs Vital signs: Vital Signs Temp 97.5 F L 11/02/19 07:00 Pulse 95 11/02/19 07:00 Resp 17 11/02/19 07:00 BP 107/68 11/02/19 07:00 Pulse Ox 98 11/02/19 07:00 Intake & Output 11/01/19 11/02/19 11/02/19 18:59 06:59 18:59 Intake Total 1850 350 Output Total 600 680 Balance 1250 -330 Weight 74.389 kg 74.389 kg Intake: IV 1850 350 Output: Drainage 50 Right Lower Abdomen 50 Urine 400 190 Stool 100 Urine/Stool Mix 300 Estimated Blood Loss 200 40 Other: Voiding Method Toilet Indwelling Catheter - Exam GENERAL: The patient is alert and oriented x3, not in any acute distress. Well developed, well nourished. HEENT: Pupils are round and equally reacting to light. EOMI. No scleral icterus. No conjunctival pallor. Normocephalic, atraumatic. No pharyngeal erythema. No thyromegaly. CARDIOVASCULAR: S1 and S2 present. No murmurs, rubs, or gallops. PULMONARY: Chest is clear to auscultation, no wheezing or crackles. -ABDOMEN: Soft, nontender, nondistended, normoactive bowel sounds. No palpable organomegaly. left colostomy back, surgical incision is clean MUSCULOSKELETAL: No joint swelling or deformity. EXTREMITIES: No cyanosis, clubbing, or pedal edema. NEUROLOGICAL: Gross neurological examination did not reveal any focal deficits. SKIN: No rashes. no petechiae. - Labs CBC & Chem 7: 11/02/19 08:09 11/01/19 08:04 Labs: Abnormal Lab Results - Last 24 Hours (Table) 11/02/19 Range/Units 08:09 WBC 24.2 H (3.8-10.6) k/uL RBC 3.42 L (3.80-5.40) m/uL Hgb 11.3 L (11.4-16.0) gm/dL MCV 101.2 H (80.0-100.0) fL Neutrophils # 21.2 H (1.3-7.7) k/uL Monocytes # 1.4 H (0-1.0) k/uL Assessment and Plan Assessment: -sigmoid stricture, status post low anterior resection of the: With left lower abdomen colostomy -Acute kidney injury -Leukocytosis, mostly reactive, less likely infection -COPD in an ex-smoker -Essential hypertension -Hyperlipidemia -Obesity BMI 31 Plan: this is a pleasant 84 years old female who presents with sigmoid stricture. status post colon surgical resection.also with KYLAH . Continue with IV hydration. Pain management.continue with antibiotic. Labs and medication were reviewed.. Continue same treatment. Continue with symptomatic treatment. Resume home medication. Monitor lytes and vitals. DVT and GI prophylaxis. Further recommendations of the clinical course of the patient DVT prophylaxis: Subcutaneous Lovenox GI Prophylaxis: Pepcid Prognosis is guarded
[2019-11-02] MEDS ORDERED: TAMSULOSIN 0.4 MG CAP.ER.24H PO SCH (10:15)
--- NOTE | 2019-11-02 12:34 | P.PN ---
Subjective Progress Note Date: 11/02/19 Principal diagnosis: Colon obstruction, status post Rojas's procedure The patient is postop day 1. She had a low anterior resection due to an obstructing tumor. She's having expected incisional pain. Epidural was not placed as she had been on Lovenox. Denies nausea or vomiting. Objective - Vital Signs Vital signs: Vital Signs Temp 97.5 F L 11/02/19 07:00 Pulse 95 11/02/19 07:00 Resp 17 11/02/19 07:00 BP 107/68 11/02/19 07:00 Pulse Ox 98 11/02/19 07:00 Intake & Output 11/01/19 11/02/19 11/02/19 18:59 06:59 18:59 Intake Total 1850 350 Output Total 600 680 50 Balance 1250 -330 -50 Weight 74.389 kg 74.389 kg Intake: IV 1850 350 Output: Drainage 50 50 Right Lower Abdomen 50 50 Urine 400 190 Stool 100 Urine/Stool Mix 300 Estimated Blood Loss 200 40 Other: Voiding Method Toilet Indwelling Catheter Indwelling Catheter - Constitutional General appearance: Present: cooperative, no acute distress - Respiratory Respiratory: bilateral: diminished (At the bases. She's doing 500-1000 mL is on her incentive spirometry) - Gastrointestinal General gastrointestinal: Present: decreased bowel sounds, soft Localized gastrointestinal: surgical scar: diffuse (Dressing is clean and dry. Ostomy is pink and viable with liquidy stool output) - Labs CBC & Chem 7: 11/02/19 08:09 11/02/19 08:09 Labs: Abnormal Lab Results - Last 24 Hours (Table) 11/02/19 11/02/19 Range/Units 08:09 08:09 WBC 24.2 H (3.8-10.6) k/uL RBC 3.42 L (3.80-5.40) m/uL Hgb 11.3 L (11.4-16.0) gm/dL MCV 101.2 H (80.0-100.0) fL Neutrophils # 21.2 H (1.3-7.7) k/uL Monocytes # 1.4 H (0-1.0) k/uL Sodium 134 L (137-145) mmol/L Carbon Dioxide 16 L (22-30) mmol/L BUN 26 H (7-17) mg/dL Creatinine 1.48 H (0.52-1.04) mg/dL Glucose 160 H (74-99) mg/dL Calcium 8.3 L (8.4-10.2) mg/dL AST 52 H (14-36) U/L Total Protein 5.2 L (6.3-8.2) g/dL Albumin 2.7 L (3.5-5.0) g/dL Assessment and Plan (1) Colon obstruction Current Visit: Yes Status: Acute Code(s): K56.609 - UNSP INTESTNL OBST, UNSP TO PARTIAL VERSUS COMPLETE OBST SNOMED Code(s): 69430191 (2) COPD (chronic obstructive pulmonary disease) Current Visit: Yes Status: Acute Code(s): J44.9 - CHRONIC OBSTRUCTIVE PULMONARY DISEASE, UNSPECIFIED SNOMED Code(s): 02639520 (3) Hypertension Current Visit: Yes Status: Acute Code(s): I10 - ESSENTIAL (PRIMARY) HYPERTENSION SNOMED Code(s): 97194306 (4) Hyperlipidemia Current Visit: Yes Status: Acute Code(s): E78.5 - HYPERLIPIDEMIA, UNSPECIFIED SNOMED Code(s): 12740807 Plan: The patient is postoperative day 1. Clinically this is likely an obstructing colon tumor. The tumor was resected. There may have been some residual lymph nodes left in the pelvis. The liver palpated is unremarkable. The rest of the mesentery palpated is unremarkable. She will be continued on IV antibiotics as there was some leakage of stool due to her obstruction and significant colonic dilation. Encourage incentive spirometry. Encourage activity. Await pathology. Progressing slowly.
--- NOTE | 2019-11-02 13:01 | US ---
EXAMINATION TYPE: US renals and bladder DATE OF EXAM: 11/02/2019 COMPARISON: NONE CLINICAL HISTORY: alanna. h/o sigmoid colon obstruction, post surgical, has colostomy bag on the left si de of abd. EXAM MEASUREMENTS: Right Kidney: 7.9 x 4.6 x 4.4 cm Left Kidney: 9.9 x 5.5 x 5.9 cm *very limited imaging due to extensive bowel gas, abd bandages and lack of mobility. Right Kidney: small in size Left Kidney: very limited views, normal appearing size Bladder: barnes cath, unable to view due to bandaged IMPRESSION: Limited exam, small right kidney
[2019-11-02] MEDS: PIPERACILLIN-TAZOBACTAM 3.375 GM in SODIUM CHLORIDE 0.9% 100 ML IVPB SCH ×2 (17:39→20:58)
[2019-11-02] MEDS ORDERED: SODIUM CHLORIDE 0.9% 500 ML 500 ML IV ONE (17:57)
[2019-11-02] MEDS ORDERED: HYDROmorphone 0.5 MG/0.5 ML SYRINGE IVP PRN (18:32)
[2019-11-03] MEDS: SODIUM CHLORIDE 0.9% 1,000 ML IV SCH ×3 (02:21→12:24)
--- NOTE | 2019-11-03 07:46 | CT ---
EXAMINATION TYPE: CT brain wo con DATE OF EXAM: 11/03/2019 HISTORY: Fall injury with headache CT DLP: 1087.4 mGycm. Automated Exposure Control for Dose Reduction was Utilized. TECHNIQUE: CT scan of the head is performed without contrast. COMPARISON: None. FINDINGS: There is no acute intracranial hemorrhage or midline shift identified. There is diffuse v entricular and sulcal prominence consistent with diffuse age-related cerebral atrophy. There is low- attenuation in the periventricular white matter consistent with chronic small vessel ischemic change. The globes are intact and the visualized sinuses are clear. The calvarium is intact. Vascular carolynn cification distal internal carotid arteries is noted bilaterally. IMPRESSION: No acute intracranial hemorrhage or midline shift. There is mild diffuse cerebral atrop hy and moderate to severe chronic small vessel ischemic change noted.
[2019-11-03] MEDS: LOSARTAN 50 MG TAB PO SCH (07:53)
[2019-11-03] MEDS: amLODIPine 5 MG TAB PO SCH (07:54)
[2019-11-03] MEDS: PIPERACILLIN-TAZOBACTAM 3.375 GM in SODIUM CHLORIDE 0.9% 100 ML IVPB SCH ×2 (07:54→20:00)
[2019-11-03] MEDS: ENOXAPARIN 40 MG/0.4 ML SYRINGE SQ SCH (07:54)
[2019-11-03] MEDS: PANTOPRAZOLE 40 MG/10 ML VIAL IV SCH (07:54)
[2019-11-03 08:09] LABS: Basophils % (A) 0 %; Eosinophils # (A) 0.2 k/uL (0-0.7); Eosinophils % (A) 1 %; HCT 29.8 % (34.0-46.0); HGB 10.1 gm/dL (11.4-16.0); Lymphocytes # (A) 0.9 k/uL (1.0-4.8); Lymphocytes % (A) 5 %; MCH 32.8 pg (25.0-35.0); MCHC 33.9 g/dL (31.0-37.0); MCV 96.5 fL (80.0-100.0); Mean Platelet Volume 7.9; Monocytes # (A) 0.6 k/uL (0-1.0); Monocytes % (A) 3 %; Neutrophils # (A) 16.7 k/uL (1.3-7.7); Neutrophils % (A) 90 %; Platelet Count 352 k/uL (150-450); RBC 3.09 m/uL (3.80-5.40); WBC 18.5 k/uL (3.8-10.6)
[2019-11-03 08:34] LABS: Albumin 2.5 g/dL (3.5-5.0); Calcium 8.2 mg/dL (8.4-10.2); Total Bilirubin 0.7 mg/dL (0.2-1.3)
[2019-11-03] MEDS: SYMBICORT 160-4.5 MCG INHALER INHALATION SCH ×2 (08:40→20:18)
[2019-11-03] MEDS: D5-0.45% NACL WITH KCL 20MEQ/L 1,000 ML IV SCH ×2 (09:13→09:32)
[2019-11-03] MEDS ORDERED: HYDROcodone/APAP 7.5-325MG 1 EACH TAB PO PRN (10:04)
[2019-11-03] MEDS ORDERED: FUROSEMIDE 10 MG/ML 4 ML VIAL IV STA (10:26)
--- NOTE | 2019-11-03 10:29 | P.PN ---
Subjective on-call hospitalist covering for Dr. Garcia From the records This is a pleasant 84-year-old patient of Dr. Crowley. Chronic stable medical conditions include COPD, hyperlipidemia, hypertension, thyroid nodule, cervical cancer with hysterectomy. Patient also had left upper lobe of the lung removed. History of subarachnoid hemorrhage. Patient was at [facility] from September 05 to September 12 with what she described as ileus. 4 days ago she started having increasing abdominal distention and abdominal pain. Some nausea. Also having significant spasms. Her last bowel movement was 2 days ago. Denied any fevers. At [facility] she presented there again was found to have an obstruction. It could not be secondary to his ileus versus mechanical obstruction. There was some stricture reported in the sigmoid area. General surgery was consulted. Admitted for the same. Norcet Kaletra with NG tube was unsuccessful. Dr. Frances was informed. 11/01/2019 Patient presents with signs and symptoms of bowel obstruction. Barium enema showing stricture in the sigmoid colon. Discussed the case with surgery team and Dr. Frances the planned for the patient is for surgical resection and temporal colostomy possible today or tomorrow. Patient is aware and she agrees with the treatment plan. Risks including but not limited to cancer are explained for the patient and she agrees. 11/02/2019 Patient status post low anterior resection of the colon with colostomy formation on 10/31, today is postop day #1.she is in [id number] distress due to surgical site pain, she denies coughing, no nausea vomiting, she has left colostomy back in the left lower abdomen with some a brown stool. Surgical site clean with dressing is placed.Menon catheter is in a Place labs today showing leukocytosis of20 4.2K, sodium 134, creatinine is elevated at 1.4. She already got at cefazolin and metronidazole.we will start her on Zosyn colon biopsies pending we increased her Dilaudid because of her uncontrolled pain.continue with normal saline at 75 mL/h, we will increase to 100 mL per hour 11/03/2019 Patient is fully awake and oriented, earlier she got confused from Dilaudid and was stopped and switched to an Parker 7.[address] of the brain is negative for acute process. Her pain is controlled. She still have expected abdominal pain at her surgery site, she is not vomiting and she is tolerating liquid diet. Colostomy back is empty the Menon catheter is in a Place.vital signs stable and patient is afebrile. The biopsies coming down to 18.5 K. Creatinine is stable at 1.4.sodium 130.normal saline was stopped, we going to start normal saline at 75 mL/h surgical biopsy still pending she remains on normal saline at 100 mL per hour, she is also on Zosyn twice daily. Objective - Vital Signs Vital signs: Vital Signs Temp 97.9 F 11/03/19 07:00 Pulse 89 11/03/19 07:00 Resp 18 11/03/19 07:00 BP 119/76 11/03/19 07:00 Pulse Ox 99 11/03/19 07:00 Intake & Output 11/02/19 11/03/19 11/03/19 18:59 06:59 18:59 Intake Total 800 Output Total 150 780 530 Balance 650 -780 -530 Intake: Intake, IV Titration 800 Amount D5-0.45% NaCl with KCl 800 20Meq/l 1,000 ml @ 100 mls/hr IV .Q10H [facility] Rx#: [id number] Output: Drainage 50 30 30 Right Lower Abdomen 50 30 30 Urine 750 500 Stool 100 Other: Voiding Method Indwelling Catheter Indwelling Catheter Indwelling Catheter - Exam GENERAL: The patient is alert and oriented x3, not in any acute distress. Well developed, well nourished. HEENT: Pupils are round and equally reacting to light. EOMI. No scleral icterus. No conjunctival pallor. Normocephalic, atraumatic. No pharyngeal erythema. No thyromegaly. CARDIOVASCULAR: S1 and S2 present. No murmurs, rubs, or gallops. PULMONARY: Chest is clear to auscultation, no wheezing or crackles. -ABDOMEN: Soft, nontender, nondistended, normoactive bowel sounds. No palpable organomegaly. left colostomy back, surgical incision is clean MUSCULOSKELETAL: No joint swelling or deformity. EXTREMITIES: No cyanosis, clubbing, or pedal edema. NEUROLOGICAL: Gross neurological examination did not reveal any focal deficits. SKIN: No rashes. no petechiae. - Labs CBC & Chem 7: 11/03/19 07:31 11/03/19 07:31 Labs: Abnormal Lab Results - Last 24 Hours (Table) 11/03/19 11/03/19 Range/Units 07:31 07:31 WBC 18.5 H (3.8-10.6) k/uL RBC 3.09 L (3.80-5.40) m/uL Hgb 10.1 L (11.4-16.0) gm/dL Hct 29.8 L (34.0-46.0) % Neutrophils # 16.7 H (1.3-7.7) k/uL Lymphocytes # 0.9 L (1.0-4.8) k/uL Sodium 130 L (137-145) mmol/L Carbon Dioxide 18 L (22-30) mmol/L BUN 31 H (7-17) mg/dL Creatinine 1.41 H (0.52-1.04) mg/dL Glucose 132 H (74-99) mg/dL Calcium 8.2 L (8.4-10.2) mg/dL AST 73 H (14-36) U/L Total Protein 5.0 L (6.3-8.2) g/dL Albumin 2.5 L (3.5-5.0) g/dL Assessment and Plan Assessment: -sigmoid stricture, status post low anterior resection of the: With left lower abdomen colostomy -Acute kidney injury -Leukocytosis, mostly reactive, less likely infection -COPD in an ex-smoker -Essential hypertension -Hyperlipidemia -Obesity BMI 31 Plan: this is a pleasant 84 years old female who presents with sigmoid stricture. status post colon surgical resection.also with KYLAH . Continue with IV hydration. Pain management.continue with antibiotic. Labs and medication were reviewed.. Continue same treatment. Continue with symptomatic treatment. Resume home medication. Monitor lytes and vitals. DVT and GI prophylaxis. Further recommendations of the clinical course of the patient DVT prophylaxis: Subcutaneous Lovenox GI Prophylaxis: Pepcid Prognosis is guarded
--- NOTE | 2019-11-03 15:48 | P.PN ---
Subjective Progress Note Date: 11/03/19 Principal diagnosis: Colon obstruction, status post Rojas's procedure The patient is seen on rounds. She is less confused than yesterday. The pain medication causes confusion and she did end up falling yesterday. she feels better today. She says she usually has bad reactions to pain medication. Her pain is minimal. Denies nausea, vomiting, heartburn Objective - Vital Signs Vital signs: Vital Signs Temp 98.3 F 11/03/19 14:16 Pulse 100 11/03/19 14:16 Resp 18 11/03/19 14:16 BP 122/71 11/03/19 14:16 Pulse Ox 93 L 11/03/19 14:16 Intake & Output 11/02/19 11/03/19 11/03/19 18:59 06:59 18:59 Intake Total 800 Output Total 150 780 530 Balance 650 -780 -530 Intake: Intake, IV Titration 800 Amount D5-0.45% NaCl with KCl 800 20Meq/l 1,000 ml @ 100 mls/hr IV .Q10H [facility] Rx#: [id number] Output: Drainage 50 30 30 Right Lower Abdomen 50 30 30 Urine 750 500 Stool 100 Other: Voiding Method Indwelling Catheter Indwelling Catheter Indwelling Catheter - Constitutional General appearance: Present: cooperative, no acute distress - Respiratory Respiratory: bilateral: CTA, diminished (At the bases. She is doing well 500 to 7:15 mL on her incentive spirometry) - Gastrointestinal General gastrointestinal: Present: decreased bowel sounds, soft (Softly distended) Localized gastrointestinal: surgical scar: diffuse (Incision is intact was a little serosanguineous drainage. The BRYCE is serosanguineous) - Labs CBC & Chem 7: 11/03/19 07:31 11/03/19 07:31 Labs: Abnormal Lab Results - Last 24 Hours (Table) 11/03/19 11/03/19 Range/Units 07:31 07:31 WBC 18.5 H (3.8-10.6) k/uL RBC 3.09 L (3.80-5.40) m/uL Hgb 10.1 L (11.4-16.0) gm/dL Hct 29.8 L (34.0-46.0) % Neutrophils # 16.7 H (1.3-7.7) k/uL Lymphocytes # 0.9 L (1.0-4.8) k/uL Sodium 130 L (137-145) mmol/L Carbon Dioxide 18 L (22-30) mmol/L BUN 31 H (7-17) mg/dL Creatinine 1.41 H (0.52-1.04) mg/dL Glucose 132 H (74-99) mg/dL Calcium 8.2 L (8.4-10.2) mg/dL AST 73 H (14-36) U/L Total Protein 5.0 L (6.3-8.2) g/dL Albumin 2.5 L (3.5-5.0) g/dL Microbiology - Last 24 Hours (Table) 11/02/19 10:57 Blood Culture - Preliminary Blood No Growth after 24 hours Assessment and Plan (1) Colon obstruction Current Visit: Yes Status: Acute Code(s): K56.609 - UNSP INTESTNL OBST, UNSP TO PARTIAL VERSUS COMPLETE OBST SNOMED Code(s): 61645307 (2) COPD (chronic obstructive pulmonary disease) Current Visit: Yes Status: Acute Code(s): J44.9 - CHRONIC OBSTRUCTIVE PUL MONARY DISEASE, UNSPECIFIED SNOMED Code(s): 47396750 (3) Hypertension Current Visit: Yes Status: Acute Code(s): I10 - ESSENTIAL (PRIMARY) HYPERTENSION SNOMED Code(s): 80477779 (4) Hyperlipidemia Current Visit: Yes Status: Acute Code(s): E78.5 - HYPERLIPIDEMIA, UNSPECIFIED SNOMED Code(s): 32814138 Plan: Patient is postoperative day 2. She is clinically doing better. Encourage activity. Will encourage her to get up to the chair and try walking with assistance. Diet will be increased tomorrow. Progressing slowly. Will likely need short-term rehab
[2019-11-03] MEDS: ACETAMINOPHEN TAB 325 MG TAB PO PRN (21:55)
[2019-11-04] MEDS: SODIUM CHLORIDE 0.9% 1,000 ML IV SCH ×2 (00:52→10:13)
[2019-11-04] MEDS ORDERED: BENZOCAINE/MENTHOL LOZENG 1 EACH LOZENGE MUCOUS MEM PRN (02:12)
[2019-11-04 07:18] LABS: Basophils % (A) 0 %; Eosinophils # (A) 0.3 k/uL (0-0.7); Eosinophils % (A) 2 %; HCT 28.3 % (34.0-46.0); HGB 9.2 gm/dL (11.4-16.0); Lymphocytes # (A) 1.1 k/uL (1.0-4.8); Lymphocytes % (A) 8 %; MCHC 32.5 g/dL (31.0-37.0); MCV 98.3 fL (80.0-100.0); Mean Platelet Volume 7.5; Monocytes # (A) 0.4 k/uL (0-1.0); Monocytes % (A) 3 %; Neutrophils # (A) 13.1 k/uL (1.3-7.7); Neutrophils % (A) 87 %; Platelet Count 333 k/uL (150-450); RBC 2.87 m/uL (3.80-5.40)
[2019-11-04 07:31] LABS: Albumin 2.3 g/dL (3.5-5.0); Calcium 8.8 mg/dL (8.4-10.2); Potassium 4.6 mmol/L (3.5-5.1); Total Bilirubin 0.9 mg/dL (0.2-1.3); Total Protein 4.8 g/dL (6.3-8.2)
[2019-11-04] MEDS: ENOXAPARIN 30 MG/0.3 ML SYRINGE SQ SCH (08:00)
[2019-11-04] MEDS: PIPERACILLIN-TAZOBACTAM 3.375 GM in SODIUM CHLORIDE 0.9% 100 ML IVPB SCH ×2 (08:00→20:21)
[2019-11-04] MEDS: LOSARTAN 50 MG TAB PO SCH (08:00)
[2019-11-04] MEDS: amLODIPine 5 MG TAB PO SCH (08:00)
[2019-11-04] MEDS: PANTOPRAZOLE 40 MG/10 ML VIAL IV SCH (08:00)
[2019-11-04] MEDS ORDERED: traMADol 50 MG TAB PO PRN (08:02)
[2019-11-04] MEDS: SYMBICORT 160-4.5 MCG INHALER INHALATION SCH ×2 (08:19→20:41)
--- NOTE | 2019-11-04 08:45 | P.PN ---
Subjective Progress Note Date: 11/04/19 Principal diagnosis: Colon obstruction, status post Rojas's procedure Patient is seen on rounds. She is tolerating a regular breakfast. No nausea or vomiting. Complaining of some pain in left left abdomen as she was having preoperatively. Objective - Vital Signs Vital signs: Vital Signs Temp 97.7 F 11/04/19 07:00 Pulse 90 11/04/19 07:00 Resp 19 11/04/19 07:00 BP 143/79 11/04/19 07:00 Pulse Ox 92 L 11/04/19 08:19 Intake & Output 11/03/19 11/04/19 11/04/19 18:59 06:59 18:59 Intake Total 600 600 Output Total 2250 2215 Balance -1650 -1615 Intake: Intake, IV Titration 600 600 Amount Sodium Chloride 0.9% 1, 600 600 000 ml @ 75 mls/hr IV . [id number] [facility] Rx#:[id number] Output: Drainage 50 40 Right Lower Abdomen 50 40 Urine 2200 2075 Stool 100 Other: Voiding Method Indwelling Catheter Indwelling Catheter Indwelling Catheter - Constitutional General appearance: Present: cooperative, no acute distress - Respiratory Respiratory: bilateral: CTA, diminished (At the bases) - Gastrointestinal General gastrointestinal: Present: decreased bowel sounds, soft Localized gastrointestinal: surgical scar: diffuse (Ostomy is pink and viable. Minimal stool output to date. BRYCE is serosanguineous) - Labs CBC & Chem 7: 11/04/19 06:33 11/04/19 06:33 Labs: Abnormal Lab Results - Last 24 Hours (Table) 11/03/19 11/04/19 11/04/19 Range/Units 07:31 06:33 06:33 WBC 15.0 H (3.8-10.6) k/uL RBC 2.87 L (3.80-5.40) m/uL Hgb 9.2 L (11.4-16.0) gm/dL Hct 28.3 L (34.0-46.0) % Neutrophils # 13.1 H (1.3-7.7) k/uL Sodium 130 L 135 L (137-145) mmol/L Chloride 111 H (98-107) mmol/L Carbon Dioxide 18 L 21 L (22-30) mmol/L BUN 31 H 18 H (7-17) mg/dL Creatinine 1.41 H (0.52-1.04) mg/dL Glucose 132 H 110 H (74-99) mg/dL Calcium 8.2 L (8.4-10.2) mg/dL AST 73 H 44 H (14-36) U/L Total Protein 5.0 L 4.8 L (6.3-8.2) g/dL Albumin 2.5 L 2.3 L (3.5-5.0) g/dL Microbiology - Last 24 Hours (Table) 11/02/19 10:57 Blood Culture - Preliminary Blood No Growth after 24 hours Assessment and Plan (1) Colon obstruction Current Visit: Yes Status: Acute Code(s): K56.609 - UNSP INTESTNL OBST, UNSP TO PARTIAL VERSUS COMPLETE OBST SNOMED Code(s): 61528652 (2) COPD (chronic obstructive pulmonary disease) Current Visit: Yes Status: Acute Code(s): J44.9 - CHRONIC OBSTRUCTIVE PULMONARY DISEASE, UNSPECIFIED SNOMED Code(s): 05050618 (3) Hypertension Current Visit: Yes Status: Acute Code(s): I10 - ESSENTIAL (PRIMARY) HYPERTENSION SNOMED Code(s): 11473057 (4) Hyperlipidemia Current Visit: Yes Status: Acute Code(s): E78.5 - HYPERLIPIDEMIA, UNSPECIFIED SNOMED Code(s): 81197640 Plan: .The patient is progressing slowly. Some of the pain is due to the fact that the colon is still significantly distended with stool due to the obstruction. This should begin to relieve within the next few days. Encourage cough, deep breathe, incentive spirometry. We will try her on a mild pain medication. She does not tolerate narcotics well due to confusion
--- NOTE | 2019-11-04 12:19 | P.PN ---
Subjective on-call hospitalist covering for Dr. Garcia From the records This is a pleasant 84-year-old patient of Dr. Crowley. Chronic stable medical conditions include COPD, hyperlipidemia, hypertension, thyroid nodule, cervical cancer with hysterectomy. Patient also had left upper lobe of the lung removed. History of subarachnoid hemorrhage. Patient was at [facility] from September 05 to September 12 with what she described as ileus. 4 days ago she started having increasing abdominal distention and abdominal pain. Some nausea. Also having significant spasms. Her last bowel movement was 2 days ago. Denied any fevers. At [facility] she presented there again was found to have an obstruction. It could not be secondary to his ileus versus mechanical obstruction. There was some stricture reported in the sigmoid area. General surgery was consulted. Admitted for the same. Norcet Kaletra with NG tube was unsuccessful. Dr. Frances was informed. 11/01/2019 Patient presents with signs and symptoms of bowel obstruction. Barium enema showing stricture in the sigmoid colon. Discussed the case with surgery team and Dr. Frances the planned for the patient is for surgical resection and temporal colostomy possible today or tomorrow. Patient is aware and she agrees with the treatment plan. Risks including but not limited to cancer are explained for the patient and she agrees. 11/02/2019 Patient status post low anterior resection of the colon with colostomy formation on 10/31, today is postop day #1.she is in [id number] distress due to surgical site pain, she denies coughing, no nausea vomiting, she has left colostomy back in the left lower abdomen with some a brown stool. Surgical site clean with dressing is placed.Menon catheter is in a Place labs today showing leukocytosis of20 4.2K, sodium 134, creatinine is elevated at 1.4. She already got at cefazolin and metronidazole.we will start her on Zosyn colon biopsies pending we increased her Dilaudid because of her uncontrolled pain.continue with normal saline at 75 mL/h, we will increase to 100 mL per hour 11/03/2019 Patient is fully awake and oriented, earlier she got confused from Dilaudid and was stopped and switched to an [place] 7.[address] of the brain is negative for acute process. Her pain is controlled. She still have expected abdominal pain at her surgery site, she is not vomiting and she is tolerating liquid diet. Colostomy back is empty the Menon catheter is in a Place.vital signs stable and patient is afebrile. The biopsies coming down to 18.5 K. Creatinine is stable at 1.4.sodium 130.normal saline was stopped, we going to start normal saline at 75 mL/h surgical biopsy still pending she remains on normal saline at 100 mL per hour, she is also on Zosyn twice daily. 11/04/2019 Patient is generally doing well, she is tolerating her diet and colostomy back is attempted as per patient, she still have Menon catheter and recommended to keep it as per surgery team. colon Biopsy is pending. WBC is trending down to 15.0 K, creatinine is back to normal as well as sodium. Discontinue fluids, keep the Menon catheter, continue with Zosyn. Follow-up biopsy and culture results Objective - Vital Signs Vital signs: Vital Signs Temp 97.7 F 11/04/19 07:00 Pulse 90 11/04/19 07:00 Resp 19 11/04/19 07:00 BP 143/79 11/04/19 07:00 Pulse Ox 92 L 11/04/19 08:19 Intake & Output 11/03/19 11/04/19 11/04/19 18:59 06:59 18:59 Intake Total 600 600 Output Total 2250 2215 80 Balance -1650 -1615 -80 Intake: Intake, IV Titration 600 600 Amount Sodium Chloride 0.9% 1, 600 600 000 ml @ 75 mls/hr IV . [id number] [facility] Rx#:[id number] Output: Drainage 50 40 80 Right Lower Abdomen 50 40 80 Urine 2200 2075 Stool 100 Other: Voiding Method Indwelling Catheter Indwelling Catheter Indwelling Catheter # Bowel Movements 0 - Exam GENERAL: The patient is alert and oriented x3, not in any acute distress. Well developed, well nourished. HEENT: Pupils are round and equally reacting to light. EOMI. No scleral icterus. No conjunctival pallor. Normocephalic, atraumatic. No pharyngeal erythema. No thyromegaly. CARDIOVASCULAR: S1 and S2 present. No murmurs, rubs, or gallops. PULMONARY: Chest is clear to auscultation, no wheezing or crackles. -ABDOMEN: Soft, nontender, nondistended, normoactive bowel sounds. No palpable organomegaly. left colostomy back, surgical incision is clean MUSCULOSKELETAL: No joint swelling or deformity. EXTREMITIES: No cyanosis, clubbing, or pedal edema. NEUROLOGICAL: Gross neurological examination did not reveal any focal deficits. SKIN: No rashes. no petechiae. - Labs CBC & Chem 7: 11/04/19 06:33 11/04/19 06:33 Labs: Abnormal Lab Results - Last 24 Hours (Table) 11/04/19 11/04/19 Range/Units 06:33 06:33 WBC 15.0 H (3.8-10.6) k/uL RBC 2.87 L (3.80-5.40) m/uL Hgb 9.2 L (11.4-16.0) gm/dL Hct 28.3 L (34.0-46.0) % Neutrophils # 13.1 H (1.3-7.7) k/uL Sodium 135 L (137-145) mmol/L Chloride 111 H (98-107) mmol/L Carbon Dioxide 21 L (22-30) mmol/L BUN 18 H (7-17) mg/dL Glucose 110 H (74-99) mg/dL AST 44 H (14-36) U/L Total Protein 4.8 L (6.3-8.2) g/dL Albumin 2.3 L (3.5-5.0) g/dL Microbiology - Last 24 Hours (Table) 11/02/19 10:57 Blood Culture - Preliminary Blood No Growth after 24 hours Assessment and Plan Assessment: -sigmoid stricture, status post low anterior resection of the: With left lower abdomen colostomy -Acute kidney injury -Leukocytosis, mostly reactive, less likely infection -COPD in an ex-smoker -Essential hypertension -Hyperlipidemia -Obesity BMI 31 Plan: this is a pleasant 84 years old female who presents with sigmoid stricture. status post colon surgical resection.also with KYLAH . Continue with IV hydration. Pain management.continue with antibiotic. Labs and medication were reviewed.. Continue same treatment. Continue with symptomatic treatment. Resume home medication. Monitor lytes and vitals. DVT and GI prophylaxis. Further recommendations of the clinical course of the patient DVT prophylaxis: Subcutaneous Lovenox GI Prophylaxis: Pepcid Prognosis is guarded
[2019-11-05] MEDS: PANTOPRAZOLE 40 MG/10 ML VIAL IV SCH (08:24)
[2019-11-05] MEDS: PIPERACILLIN-TAZOBACTAM 3.375 GM in SODIUM CHLORIDE 0.9% 100 ML IVPB SCH ×2 (08:24→20:02)
[2019-11-05] MEDS: ACETAMINOPHEN TAB 325 MG TAB PO PRN ×2 (08:25→16:59)
[2019-11-05] MEDS: LOSARTAN 50 MG TAB PO SCH (08:25)
[2019-11-05] MEDS: amLODIPine 5 MG TAB PO SCH (08:25)
[2019-11-05] MEDS: ENOXAPARIN 30 MG/0.3 ML SYRINGE SQ SCH (08:25)
[2019-11-05] MEDS: SYMBICORT 160-4.5 MCG INHALER INHALATION SCH ×2 (09:23→19:28)
--- NOTE | 2019-11-05 09:50 | P.PN ---
Subjective Progress Note Date: 11/05/19 Principal diagnosis: Colon obstruction, status post Rojas's procedure The patient seen on rounds. She feels weak. She's tolerating a diet. She was able to eat more today. Objective - Vital Signs Vital signs: Vital Signs Temp 98.1 F 11/05/19 07:13 Pulse 84 11/05/19 07:13 Resp 16 11/05/19 08:30 BP 136/81 11/05/19 07:13 Pulse Ox 97 11/05/19 07:13 Intake & Output 11/04/19 11/05/19 11/05/19 18:59 06:59 18:59 Intake Total 262.5 Output Total 165 1580 40 Balance -165 -1317.5 -40 Intake: Intake, IV Titration 262.5 Amount Sodium Chloride 0.9% 1, 262.5 000 ml @ 75 mls/hr IV . [id number] [facility] Rx#:[id number] Output: Drainage 165 80 Right Lower Abdomen 165 80 Urine 1500 Stool 40 Other: Voiding Method Indwelling Catheter Indwelling Catheter Indwelling Catheter # Bowel Movements 0 - Constitutional General appearance: Present: cooperative, no acute distress - Respiratory Respiratory: bilateral: CTA, diminished (At the bases, she is doing about 1000 mL's on her incentive spirometry) - Gastrointestinal General gastrointestinal: Present: decreased bowel sounds, soft (Softly distended) Localized gastrointestinal: surgical scar: diffuse (Dressing clean and dry, ostomy pink and viable with some output) - Labs CBC & Chem 7: 11/04/19 06:33 11/04/19 06:33 Labs: Microbiology - Last 24 Hours (Table) 11/02/19 10:57 Blood Culture - Preliminary Blood No Growth after 48 hours Assessment and Plan (1) Diverticulitis of intestine with abscess Current Visit: Yes Status: Acute Code(s): K57.80 - DVTRCLI OF INTEST, PART UNSP, W PERF AND ABSCESS W/O BLEED SNOMED Code(s): 670199159 (2) Colon obstruction Current Visit: Yes Status: Acute Code(s): K56.609 - UNSP INTESTNL OBST, UNSP TO PARTIAL VERSUS COMPLETE OBST SNOMED Code(s): 93484946 (3) COPD (chronic obstructive pulmonary disease) Current Visit: Yes Status: Acute Code(s): J44.9 - CHRONIC OBSTRUCTIVE PULMONARY DISEASE, UNSPECIFIED SNOMED Code(s): 57687539 (4) Hypertension Current Visit: Yes Status: Acute Code(s): I10 - ESSENTIAL (PRIMARY) HYPERTENSION SNOMED Code(s): 86766612 (5) Hyperlipidemia Current Visit: Yes Status: Acute Code(s): E78.5 - HYPERLIPIDEMIA, UNSPECIFIED SNOMED Code(s): 81697466 Plan: The pathology is come back with diverticulitis with intramural abscess. At time of dissection in didn't appear that there is an acute inflammatory process going on. It was very hard and liyah. Her ostomy is in place. She's had some output but not normal yet. She had some significant retained stool in the ascending and transverse colon. That should begin to pass in the next few days. Surgically should be stable for discharge on some antibiotics. Case was discussed with primary service. Agree with short-term rehab
[2019-11-05 10:15] LABS: Basophils % (A) 0 %; Eosinophils # (A) 0.4 k/uL (0-0.7); Eosinophils % (A) 3 %; HGB 9.6 gm/dL (11.4-16.0); Hypochromasia Slight; Lymphocytes % (A) 7 %; MCH 31.9 pg (25.0-35.0); MCHC 32.1 g/dL (31.0-37.0); MCV 99.4 fL (80.0-100.0); Mean Platelet Volume 7.4; Monocytes # (A) 0.5 k/uL (0-1.0); Monocytes % (A) 4 %; Neutrophils # (A) 11.4 k/uL (1.3-7.7); Neutrophils % (A) 85 %; Platelet Count 378 k/uL (150-450); RBC 3.02 m/uL (3.80-5.40); RDW 14.1 % (11.5-15.5); WBC 13.5 k/uL (3.8-10.6)
[2019-11-05 10:24] LABS: ALT 26 U/L (4-34); AST 28 U/L (14-36); African American GFR (CKD) >90 (>60 ml/min/1.73 sqM); Albumin 2.4 g/dL (3.5-5.0); Alkaline Phosphatase 101 U/L (38-126); Anion Gap 4 mmol/L; Blood Urea Nitrogen 11 mg/dL (7-17); Calcium 8.8 mg/dL (8.4-10.2); Carbon Dioxide 23 mmol/L (22-30); Chloride 106 mmol/L (98-107); Glucose 156 mg/dL (74-99); Non-African American GFR(CKD) 80 (>60 ml/min/1.73 sqM); Potassium 4.1 mmol/L (3.5-5.1); Sodium 133 mmol/L (137-145); Total Bilirubin 0.8 mg/dL (0.2-1.3)
--- NOTE | 2019-11-05 14:02 | P.PN ---
Subjective on-call hospitalist covering for Dr. Garcia From the records This is a pleasant 84-year-old patient of Dr. Crowley. Chronic stable medical conditions include COPD, hyperlipidemia, hypertension, thyroid nodule, cervical cancer with hysterectomy. Patient also had left upper lobe of the lung removed. History of subarachnoid hemorrhage. Patient was at [facility] from September 05 to September 12 with what she described as ileus. 4 days ago she started having increasing abdominal distention and abdominal pain. Some nausea. Also having significant spasms. Her last bowel movement was 2 days ago. Denied any fevers. At [facility] she presented there again was found to have an obstruction. It could not be secondary to his ileus versus mechanical obstruction. There was some stricture reported in the sigmoid area. General surgery was consulted. Admitted for the same. Norcet Kaletra with NG tube was unsuccessful. Dr. Frances was informed. 11/01/2019 Patient presents with signs and symptoms of bowel obstruction. Barium enema showing stricture in the sigmoid colon. Discussed the case with surgery team and Dr. Frances the planned for the patient is for surgical resection and temporal colostomy possible today or tomorrow. Patient is aware and she agrees with the treatment plan. Risks including but not limited to cancer are explained for the patient and she agrees. 11/02/2019 Patient status post low anterior resection of the colon with colostomy formation on 10/31, today is postop day #1.she is in [id number]-ntlhmizt distress due to surgical site pain, she denies coughing, no nausea vomiting, she has left colostomy back in the left lower abdomen with some a brown stool. Surgical site clean with dressing is placed.Menon catheter is in a Place labs today showing leukocytosis of20 4.2K, sodium 134, creatinine is elevated at 1.4. She already got at cefazolin and metronidazole.we will start her on Zosyn colon biopsies pending we increased her Dilaudid because of her uncontrolled pain.continue with normal saline at 75 mL/h, we will increase to 100 mL per hour 11/03/2019 Patient is fully awake and oriented, earlier she got confused from Dilaudid and was stopped and switched to an [place] 7.[address] of the brain is negative for acute process. Her pain is controlled. She still have expected abdominal pain at her surgery site, she is not vomiting and she is tolerating liquid diet. Colostomy back is empty the Menon catheter is in a Place.vital signs stable and patient is afebrile. The biopsies coming down to 18.5 K. Creatinine is stable at 1.4.sodium 130.normal saline was stopped, we going to start normal saline at 75 mL/h surgical biopsy still pending she remains on normal saline at 100 mL per hour, she is also on Zosyn twice daily. 11/04/2019 Patient is generally doing well, she is tolerating her diet and colostomy back is attempted as per patient, she still have Menon catheter and recommended to keep it as per surgery team. colon Biopsy is pending. WBC is trending down to 15.0 K, creatinine is back to normal as well as sodium. Discontinue fluids, keep the Menon catheter, continue with Zosyn. Follow-up biopsy and culture results 11/05/2019 Patient is status post low anterior resection of the colon with colostomy formation on 10/31, today is postop day #4.she is doing well, she starting diet, solid food. No nausea vomiting. Abdominal pain is controlled. costomy back with little stool with expectation to more stool in the near future. Patient was IS IMPROVING TO 13 K,patient is hemodynamically stable, no new complaints. She still have Menon catheter Patient was cleared for discharge by Dr. Frances on oral antibiotics. Patient will confer [facility] for rehab : Biopsy is showing no cancer cells only diverticulitis and abscess. Patient and daughter at bedside were insisting on going to [facility], they refused rehab options. 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 Menon catheter will be discontinued and check bladder scans other than that The patient is medically clear for discharge pending socialplacement Objective - Vital Signs Vital signs: Vital Signs Temp 98.1 F 11/05/19 07:13 Pulse 84 11/05/19 07:13 Resp 16 11/05/19 08:30 BP 136/81 11/05/19 07:13 Pulse Ox 97 11/05/19 07:13 Intake & Output 11/04/19 11/05/19 11/05/19 18:59 06:59 18:59 Intake Total 262.5 Output Total 165 1580 120 Balance -165 -1317.5 -120 Intake: Intake, IV Titration 262.5 Amount Sodium Chloride 0.9% 1, 262.5 000 ml @ 75 mls/hr IV . [id number] [facility] Rx#:[id number] Output: Drainage 165 80 80 Right Lower Abdomen 165 80 80 Urine 1500 Stool 40 Other: Voiding Method Indwelling Catheter Indwelling Catheter Indwelling Catheter # Bowel Movements 0 - Exam GENERAL: The patient is alert and oriented x3, not in any acute distress. Well developed, well nourished. HEENT: Pupils are round and equally reacting to light. EOMI. No scleral icterus. No conjunctival pallor. Normocephalic, atraumatic. No pharyngeal erythema. No thyromegaly. CARDIOVASCULAR: S1 and S2 present. No murmurs, rubs, or gallops. PULMONARY: Chest is clear to auscultation, no wheezing or crackles. -ABDOMEN: Soft, nontender, nondistended, normoactive bowel sounds. No palpable organomegaly. left colostomy back, surgical incision is clean MUSCULOSKELETAL: No joint swelling or deformity. EXTREMITIES: No cyanosis, clubbing, or pedal edema. NEUROLOGICAL: Gross neurological examination did not reveal any focal deficits. SKIN: No rashes. no petechiae. - Labs CBC & Chem 7: 11/05/19 09:29 11/05/19 09:29 Labs: Abnormal Lab Results - Last 24 Hours (Table) 11/05/19 11/05/19 Range/Units 09:29 09:29 WBC 13.5 H (3.8-10.6) k/uL RBC 3.02 L (3.80-5.40) m/uL Hgb 9.6 L (11.4-16.0) gm/dL Hct 30.0 L (34.0-46.0) % Neutrophils # 11.4 H (1.3-7.7) k/uL Sodium 133 L (137-145) mmol/L Glucose 156 H (74-99) mg/dL Total Protein 5.0 L (6.3-8.2) g/dL Albumin 2.4 L (3.5-5.0) g/dL Microbiology - Last 24 Hours (Table) 11/02/19 10:57 Blood Culture - Preliminary Blood No Growth after 72 hours Assessment and Plan Assessment: -sigmoid stricture, status post low anterior resection of the: With left lower abdomen colostomy -Acute kidney injury -Leukocytosis, mostly reactive, less likely infection -COPD in an ex-smoker -Essential hypertension -Hyperlipidemia -Obesity BMI 31 Plan: this is a pleasant 84 years old female who presents with sigmoid stricture. status post colon surgical resection.also with KYLAH . Continue with IV hydration. Pain management.continue with antibiotic. Labs and medication were reviewed.. Continue same treatment. Continue with symptomatic treatment. Resume home medication. Monitor lytes and vitals. DVT and GI prophylaxis. Further recommendations of the clinical course of the patient DVT prophylaxis: Subcutaneous Lovenox GI Prophylaxis: Pepcid Prognosis is guarded patient is medically stable for discharge pending placement
[2019-11-05 14:10] VITALS: BMI 30.9
[2019-11-06] MEDS: ACETAMINOPHEN TAB 325 MG TAB PO PRN (04:49)
[2019-11-06] MEDS: ALPRAZolam 0.25 MG TAB PO PRN (04:49)
[2019-11-06 07:29] VITALS: BP 149/76; PULSE 86; RESP 16; TEMP 97.8
[2019-11-06] MEDS: PIPERACILLIN-TAZOBACTAM 3.375 GM in SODIUM CHLORIDE 0.9% 100 ML IVPB SCH (08:46)
[2019-11-06] MEDS: PANTOPRAZOLE 40 MG/10 ML VIAL IV SCH (08:46)
[2019-11-06] MEDS: amLODIPine 5 MG TAB PO SCH (08:46)
[2019-11-06] MEDS: ENOXAPARIN 30 MG/0.3 ML SYRINGE SQ SCH (08:46)
[2019-11-06] MEDS: LOSARTAN 50 MG TAB PO SCH (08:46)
[2019-11-06] MEDS: SYMBICORT 160-4.5 MCG INHALER INHALATION SCH (08:53)
--- NOTE | 2019-11-06 09:04 | P.PN ---
Subjective Progress Note Date: 11/06/19 Patient seen and examined at bedside. States she is feeling well. Ostomy is functioning. Objective - Vital Signs Vital signs: Vital Signs Temp 97.8 F 11/06/19 07:00 Pulse 86 11/06/19 07:00 Resp 16 11/06/19 07:00 BP 149/76 11/06/19 07:00 Pulse Ox 90 L 11/06/19 07:00 Intake & Output 11/05/19 11/06/19 11/06/19 18:59 06:59 18:59 Intake Total 540 Output Total 3410 1000 Balance -2870 -1000 Weight 74.389 kg Intake: Oral 540 Output: Drainage 170 Right Lower Abdomen 170 Urine 3200 1000 Uretheral (Menon) 400 Stool 40 Other: Voiding Method Indwelling Catheter - Constitutional General appearance: Present: cooperative, no acute distress - Respiratory Details: No difficulty with respiration - Gastrointestinal Gastrointestinal Comment(s): Soft, appropriate tenderness, nondistended, no rebound, no guarding, midline incision site with priscila in place, ostomy is pink and patent, BRYCE drain in place - Musculoskeletal Musculoskeletal: Present: generalized weakness - Labs CBC & Chem 7: 11/05/19 09:29 11/05/19 09:29 Labs: Abnormal Lab Results - Last 24 Hours (Table) 11/05/19 11/05/19 Range/Units 09:29 09:29 WBC 13.5 H (3.8-10.6) k/uL RBC 3.02 L (3.80-5.40) m/uL Hgb 9.6 L (11.4-16.0) gm/dL Hct 30.0 L (34.0-46.0) % Neutrophils # 11.4 H (1.3-7.7) k/uL Sodium 133 L (137-145) mmol/L Glucose 156 H (74-99) mg/dL Total Protein 5.0 L (6.3-8.2) g/dL Albumin 2.4 L (3.5-5.0) g/dL Microbiology - Last 24 Hours (Table) 11/02/19 10:57 Blood Culture - Preliminary Blood No Growth after 72 hours Assessment and Plan Plan: 84-year-old female, postoperative from Rojas's procedure - Surgically progressing - Continue diet, continue local wound care - Continue ostomy care - Surgically stable for discharge to rehab facility when available
--- NOTE | 2019-11-06 13:47 | P.DS ---
Providers Date of admission: 10/31/19 02:24 Attending physician: Tahir Garcia Consults: 10/31/19 02:25 Consult Physician Routine Consulting Provider: Triny Frances Consult Reason/Comments: Abdominal pain. 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 total time taken 35 mts History of present illness This 84-year-old woman with a past medical history of multiple medical issues as listed above was admitted with features of sigmoid stricture. Dr. Frances from surgery evaluated the patient and the patient underwent colonic resection. Patient also had acute kidney injury renal failure. Patient was treated with IV fluids. Patient improved significantly. Recommended close outpatient follow- up. Medications were adjusted. Surgery. The patient will discharge. On exam vitals stable. Cardio S1-S2 normal. Abdomen soft nontender. Nervous system no focal deficit. Please see the medication requisition sheet for list of medications. Recommended close follow-up with surgery and as well as the PCP after ECF. Follow-up labs recommended ECF. Patient Condition at Discharge: Fair Plan - Discharge Summary Discharge Rx Participant: Yes New Discharge Prescriptions: New Ciprofloxacin HCl [Cipro] 500 mg PO Q12HR 5 Days #6 tab metroNIDAZOLE [Flagyl] 500 mg PO TID 5 Days #15 tab HYDROcodone/APAP 7.5-325MG [Onyx 7.5-325] 1 each PO Q6H PRN #8 tab PRN Reason: moderate to severe Pain Pantoprazole Sodium [Protonix] 40 mg PO DAILY #30 tablet. Acetaminophen Tab [Tylenol] 650 mg PO Q6HR PRN tab PRN Reason: Mild Pain Or Fever > 100.5 Continue Multivitamins, Thera [Multivitamin (formulary)] 1 tab PO DAILY Furosemide [Lasix] 20 mg PO DAILY Budesonide-Formot 160-4.5 Mcg [Symbicort 160-4.5 Mcg Inhaler] 2 puff INHALATION BID ALPRAZolam [Xanax] 0.25 mg PO BID PRN PRN Reason: Anxiety amLODIPine [Norvasc] 5 mg PO DAILY Potassium Chloride [Klor-Con 20] 20 meq PO BID Albuterol Inhaler [Ventolin Hfa Inhaler] 2 puff INHALATION RT-QID PRN PRN Reason: Shortness Of Breath Spironolactone 25 mg PO DAILY Losartan Potassium 100 mg PO DAILY Discharge Medication List ALPRAZolam [Xanax] 0.25 mg PO BID PRN 10/31/19 [History] Albuterol Inhaler [Ventolin Hfa Inhaler] 2 puff INHALATION RT-QID PRN 10/31/19 [History] Budesonide-Formot 160-4.5 Mcg [Symbicort 160-4.5 Mcg Inhaler] 2 puff INHALATION BID 10/31/19 [History] Furosemide [Lasix] 20 mg PO DAILY 10/31/19 [History] Losartan Potassium 100 mg PO DAILY 10/31/19 [History] Multivitamins, Thera [Multivitamin (formulary)] 1 tab PO DAILY 10/31/19 [Histo ry] Potassium Chloride [Klor-Con 20] 20 meq PO BID 10/31/19 [History] Spironolactone 25 mg PO DAILY 10/31/19 [History] amLODIPine [Norvasc] 5 mg PO DAILY 10/31/19 [History] Ciprofloxacin HCl [Cipro] 500 mg PO Q12HR 5 Days #6 tab 11/05/19 [Rx] metroNIDAZOLE [Flagyl] 500 mg PO TID 5 Days #15 tab 11/05/19 [Rx] Acetaminophen Tab [Tylenol] 650 mg PO Q6HR PRN tab 11/06/19 [Rx] HYDROcodone/APAP 7.5-325MG [Onyx 7.5-325] 1 each PO Q6H PRN #8 tab 11/06/19 [Rx] Pantoprazole Sodium [Protonix] 40 mg PO DAILY #30 tablet. 11/06/19 [Rx] Follow up Appointment(s)/Referral(s): Triny Frances DO [Doctor of Osteopathic Medicine] - 1 Week Simon Crowley MD [Primary Care Provider] - 1 Week [facility], [NON-STAFF] - As Needed [facility], [NON-STAFF] - As Needed Ambulatory/Diagnostic Orders: Complete Blood Count w/diff [LAB.AMB] Location: None Selected Patient Instructions/Handouts: Colostomy Care (GEN) Activity/Diet/Wound Care/Special Instructions: Colostomy care Recommendations for post hosptial care: Pt will have three pouching system changes for after hospital Last pouching system change: 11.03.2019 Convatec flange #[id number] moldable (three from the hosptial) Convatec pouch with filter #[id number] (three from the hospital) No sting prep pads (12) from the hospital Osotmy Powder (1) Pouching system to be hanged every 3-5 days Pouching system to be emptied when 1/2 to 1/3 full while sitting on the toilet Home Health or Rehab please set Mrs Zacarias up for disposable pouches in 2 weeks from discharge for ease of use 3 times a week wash incision with normal saline and pack with 1/4 inch Aquacel Ag rope. Cover with ABD.
== END 2019-11-06 17:26 | DRG 329 ==
LOC: EC 01:27 → SUPCPDRO 01:27 → 4SSUR 02:24
PROVIDERS: ADMIT Hospitalist; ATTEND Hospitalist
PROC: 0DBP0ZZ Excision of Rectum, Open Approach (ICD-10-PCS; 2019-11-01)
PROC: 0D1N0Z4 Bypass Sigmoid Colon to Cutaneous, Open Approach (ICD-10-PCS; 2019-11-01)
PROC: 0DBN0ZZ Excision of Sigmoid Colon, Open Approach (ICD-10-PCS; principal; 2019-11-01 14:30)
DX: K56.699 Other intestinal obstruction unspecified as to partial versus complete obstruction (principal); N17.0 Acute kidney failure with tubular necrosis; K57.20 Diverticulitis of large intestine with perforation and abscess without bleeding; Z11.59 Encounter for screening for other viral diseases; J44.9 Chronic obstructive pulmonary disease, unspecified; E66.9 Obesity, unspecified; I10 Essential (primary) hypertension; E78.5 Hyperlipidemia, unspecified; E04.1 Nontoxic single thyroid nodule; N32.89 Other specified disorders of bladder; Z68.31 Body mass index [BMI] 31.0-31.9, adult; Z71.3 Dietary counseling and surveillance; Z79.899 Other long term (current) drug therapy; Z90.710 Acquired absence of both cervix and uterus; Z90.49 Acquired absence of other specified parts of digestive tract; Z79.51 Long term (current) use of inhaled steroids; Z90.2 Acquired absence of lung [part of]; Z98.890 Other specified postprocedural states; Z87.891 Personal history of nicotine dependence; Z85.41 Personal history of malignant neoplasm of cervix uteri; Z86.79 Personal history of other diseases of the circulatory system; Z88.8 Allergy status to other drugs, medicaments and biological substances
CPT/HCPCS: 70450; 74270; 76770; 80048; 80053; 83735; 85025; 85610; 85730; 87040; 88108; 88305; 88307; 94640; 94760; 96374; 99285

== ENCOUNTER 2023-11-19 20:02 | Inpatient (IN) | payer BC, MEDICARE ==
[2023-11-19 21:22] LABS: Basophils # (A) 0.1 k/uL (0-0.2); Basophils % (A) 1 %; Eosinophils # (A) 0.3 k/uL (0-0.7); Eosinophils % (A) 3 %; HCT 50.5 % (34.0-46.0); HGB 16.2 gm/dL (11.4-16.0); Lymphocytes # (A) 2.7 k/uL (1.0-4.8); Lymphocytes % (A) 22 %; MCH 31.5 pg (25.0-35.0); MCV 98.3 fL (80.0-100.0); Mean Platelet Volume 7.8; Monocytes # (A) 0.7 k/uL (0-1.0); Monocytes % (A) 6 %; Neutrophils # (A) 8.2 k/uL (1.3-7.7); Neutrophils % (A) 68 %; Platelet Count 295 k/uL (150-450); RBC 5.13 m/uL (3.80-5.40); RDW 12.9 % (11.5-15.5); WBC 12.1 k/uL (3.8-10.6)
[2023-11-19 21:25] LABS: ALT 22 U/L (4-34); African American GFR (CKD) 65 (>60 ml/min/1.73 sqM); Albumin 4.4 g/dL (3.5-5.0); Anion Gap 7 mmol/L; Blood Urea Nitrogen 21 mg/dL (7-17); Calcium 10.4 mg/dL (8.4-10.2); Carbon Dioxide 22 mmol/L (22-30); Chloride 104 mmol/L (98-107); Glucose 109 mg/dL (74-99); Non-African American GFR(CKD) 56 (>60 ml/min/1.73 sqM); Sodium 133 mmol/L (137-145); Total Bilirubin 1.2 mg/dL (0.2-1.3); Total Protein 7.6 g/dL (6.3-8.2)
[2023-11-19] MEDS: SODIUM CHLORIDE 0.9% 1,000 ML IV STA (21:37)
[2023-11-19] MEDS: ENOXAPARIN 60 MG/0.6 ML SYRINGE SQ STA (21:37)
[2023-11-19] MEDS: DILTIAZEM 125 MG in SODIUM CHLORIDE 0.9% 100 ML IV SCH (21:38)
[2023-11-19] MEDS: DILTIAZEM DRIP BOLUS FROM BAG 1 MG SOLN IV ONE (21:38)
[2023-11-19 21:46] LABS: AST 41 U/L (14-36); Alkaline Phosphatase 169 U/L (38-126); INR 0.9 (<1.2); Magnesium 1.9 mg/dL (1.6-2.3); Potassium 5.3 mmol/L (3.5-5.1)
[2023-11-19 21:47] LABS: Partial Thromboplastin Time 22.4 sec (22.0-30.0); Prothrombin Time 10.5 sec (10.0-12.5)
--- NOTE | 2023-11-19 22:06 | XR ---
EXAMINATION TYPE: XR chest 2V DATE OF EXAM: 11/19/2023 COMPARISON: None HISTORY: 88 year-old female shortness of breath, dysrhythmia TECHNIQUE: PA and lateral views FINDINGS: Heart mildly enlarged. Interstitial density and hyperinflation. Possible trace effusions. IMPRESSION: COPD. Correlate for superimposed CHF with pulmonary vascular congestion and trace effusions.
--- NOTE | 2023-11-20 00:08 | ED ---
SOB HPI - General Chief Complaint: Chest Pain Stated Complaint: KATHRYN Time Seen by Provider: 11/19/23 20:16 Source: patient, EMS Mode of arrival: EMS - History of Present Illness Initial Comments: This patient is an 88-year-old woman, history of underlying COPD, who presents to evaluation for worsening of her underlying shortness of breath. Patient states this has been going on most of the day. She states that she tried taking her vital signs when the breathing got worse and found that her blood pressure was varying from very low to very high for her. Her pulse oximetry readings were also varying from what is normal for her down to below 70. She states she was just not feeling well. She denies elvis pain in the chest. She did have some abdominal cramping that she states she has been having in association with harder than usual output from her ostomy. She has not noticed fevers associated with the dyspnea. No change in her cough. She has continued to use her inhaled medication and oxygen and it was not providing adequate relief so she comes here to have evaluation. MD Complaint: shortness of breath Onset/Timin -: days(s) Severity scale (1-10): 0 Consistency: constant Improves With: nothing Worsens With: nothing Known History Of: COPD Associated Symptoms: abdominal pain Treatments Prior to Arrival: oxygen, bronchodilator - Related Data Home Oxygen Therapy: Yes Home Oxygen Amount: 4 Liters Home Medications Medication Instructions Recorded Confirmed ALPRAZolam [Xanax] 0.125 mg PO HS 10/31/19 11/20/23 Albuterol Inhaler [Ventolin Hfa 2 puff INHALATION RT-QID PRN 10/31/19 11/20/23 Inhaler] Multivitamins, Thera [Multivitamin 1 tab PO DAILY 10/31/19 11/20/23 (formulary)] Spironolactone 25 mg PO DAILY 10/31/19 11/20/23 Docusate [Colace] 100 mg PO HS@1700 11/20/23 11/20/23 Fluticasone/Umeclidin/Vilanter 1 puff INHALATION RT-DAILY 11/20/23 11/20/23 [Trelegy Ellipta 200-62.5-25] Magnesium Oxide [Magox 400] 400 mg PO HS@1700 11/20/23 11/20/23 Vitamin B-12(Unknown Dose) 1 tab PO DAILY 11/20/23 11/20/23 Previous Rx's Medication Instructions Recorded Apixaban [Eliquis] 2.5 mg PO BID tab 11/21/23 Metoprolol Succinate (ER) [Toprol 50 mg PO DAILY #90 tab 11/21/23 XL] Furosemide [Lasix] 20 mg PO DAILY@1400 #30 tab 11/22/23 Allergies Allergy/AdvReac Type Severity Reaction Status Date / Time nitrofurantoin Allergy Unknown Verified 11/20/23 11:47 [From Macrobid] Silnhgt-KNP-PdF Reductase Allergy Unknown Verified 11/20/23 11:47 Inhibitor [Hgricyz-Bon-Woo Reductase Inhibitor] cortisone AdvReac Unknown Verified 11/20/23 11:47 Review of Systems ROS Statement: Those systems with pertinent positive or pertinent negative responses have been documented in the HPI. ROS Other: All systems not noted in ROS Statement are negative. Constitutional: Reports: weakness. Denies: fever, chills Respiratory: Reports: cough, dyspnea, wheezes Cardiovascular: Reports: dyspnea on exertion. Denies: chest pain, palpitations, edema, syncope Gastrointestinal: Reports: abdominal pain, constipation. 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 Absent: scleral icterus, conjunctival injection ENT exam: Present: normal oropharynx Neck exam: Present: normal inspection Respiratory exam: Present: wheezes, decreased breath sounds. Absent: rales, rhonchi, stridor, accessory muscle use Cardiovascular Exam: Present: tachycardia, irregular rhythm. Absent: systolic murmur, diastolic murmur, rubs, gallop GI/Abdominal exam: Present: soft. Absent: distended, tenderness, guarding, rebound, rigid, mass Extremities exam: Present: normal inspection, normal capillary refill. Absent: pedal edema, calf tenderness Back exam: Present: normal inspection. Absent: CVA tenderness (R), CVA tenderness (L) Neurological exam: Present: alert Skin exam: Present: warm, dry, intact, normal color. Absent: rash Course Vital Signs 11/19/23 11/19/23 11/19/23 20:05 21:28 22:00 Temperature 98.3 F Pulse Rate 141 H 134 H 101 H Respiratory 18 18 17 Rate Blood Pressure 133/83 130/89 90/78 O2 Sat by Pulse 95 95 96 Oximetry 11/20/23 00:00 Temperature Pulse Rate 87 Respiratory 22 Rate Blood Pressure 103/78 O2 Sat by Pulse 96 Oximetry Medical Decision Making - Medical Decision Making The patient had chest x-ray which I interpreted as showing degree of congestive heart failure. No pneumothorax or infiltrate. Was pt. sent in by a medical professional or institution (, PA, ELL TUTOR, urgent care, hospital, or fpc...) When possible be specific @ -[No] Did you speak to anyone other than the patient for history (EMS, parent, family, police, friend...)? What history was obtained from this source @ -[No] Did you review nursing and triage notes (agree or disagree)? Why? @ -[I reviewed and agree with nursing and triage notes] Were old charts reviewed (outside hosp., previous admission, EMS record, old EKG, old radiological studies, urgent care reports/EKG's, fpc records)? Report findings @ -[No old charts were reviewed] Differential Diagnosis (chest pain, altered mental status, abdominal pain women, abdominal pain men, vaginal bleeding, weakness, fever, dyspnea, syncope, headache, dizziness, GI bleed, back pain, seizure, CVA, palpatations, mental health, musculoskeletal)? @ -[Differential Dyspnea: Coronary syndrome, arrhythmia, tamponade, asthma, COPD, pulmonary embolism, pneumonia, pneumothorax, pulmonary effusion, anaphylaxis, diabetic ketoacidosis, flailed chest, pulmonary contusion, diaphragmatic rupture, anemia, neuromuscular, this is not meant to be an all-inclusive list. EKG interpreted by me (3pts min.). @ -[I interpreted as above] X-rays interpreted by me (1pt min.). @ -[I interpreted as above CT interpreted by me (1pt min.). @ -[None done] U/S interpreted by me (1pt. min.). @ -[None done] What testing was considered but not performed or refused? (CT, X-rays, U/S, labs)? Why? @ -[None] What meds were considered but not given or refused? Why? @ -[None] Did you discuss the management of the patient with other professionals (professionals i.e. DrBoyd, PA, ELL TUTOR, lab, RT, psych nurse, social service manager, postal support employee, teacher, credit administration officer, egg caser)? Give summary @ -[Case discussed with admitting physician and treatment recommendations are incorporated Was smoking cessation discussed for >3mins.? @ -[No] Was critical care preformed (if so, how long)? @ -[Yes, 30 minutes Were there social determinants of health that impacted care today? How? (Homelessness, low income, unemployed, alcoholism, drug addiction, transportation, low edu. Level, literacy, decrease access to med. care, intermediate, rehab)? @ -[No] Was there de-escalation of care discussed even if they declined (Discuss DNR or withdrawal of care, Hospice)? DNR status @ -[No] What co-morbidities impacted this encounter? (DM, HTN, Smoking, COPD, CAD, Cancer, CVA, ARF, Chemo, Hep., AIDS, mental health diagnosis, sleep apnea, morbid obesity)? @ -[COPD. Hypertension. Atrial fibrillation. congestive heart failure Was patient admitted / discharged? Hospital course, mention meds given and route, prescriptions, significant lab abnormalities, going to OR and other pertinent info. @ -[Patient is an 88-year-old woman here for experiencing dyspnea and low pulse oximetry readings at home. Patient is in atrial fibrillation with rapid ventricular rate and also based on the exam and the x-ray there does appear to be a degree of congestive heart failure on top of her underlying lung disease. The patient be admitted to have further evaluation and treatment Undiagnosed new problem with uncertain prognosis? @ -[No] Drug Therapy requiring intensive monitoring for toxicity (Heparin, Nitro, Insulin, Cardizem)? @ -[IV Cardizem Were any procedures done? @ -[No] Diagnosis/symptom? @ -[Acute dyspnea Atrial fibrillation with rapid ventricular rate acute exacerbation of congestive heart failure Acute, or Chronic, or Acute on Chronic? @ -[Acute Uncomplicated (without systemic symptoms) or Complicated (systemic symptoms)? @ -[Complicated by dyspnea Side effects of treatment? @ -[No] Exacerbation, Progression, or Severe Exacerbation? @ -[Exacerbation Poses a threat to life or bodily function? How? (Chest pain, [place], AL, pneumonia, PE, COPD, DKA, ARF, appy, cholecystitis, CVA, Diverticulitis, Homicidal, Suicidal, threat to staff... and all critical care pts) @ -[Yes these conditions may worsen to respiratory failure and - Lab Data Result diagrams: 11/19/23 20:27 11/21/23 07:44 Lab Results 11/19/23 11/19/23 11/19/23 Range/Units 20:27 20:27 20:27 WBC 12.1 H (3.8-10.6) k/uL RBC 5.13 (3.80-5.40) m/uL Hgb 16.2 H (11.4-16.0) gm/dL Hct 50.5 H (34.0-46.0) % MCV 98.3 (80.0-100.0) fL MCH 31.5 (25.0-35.0) pg MCHC 32.0 (31.0-37.0) g/dL RDW 12.9 (11.5-15.5) % Plt Count 295 (150-450) k/uL MPV 7.8 Neutrophils % 68 % Lymphocytes % 22 % Monocytes % 6 % Eosinophils % 3 % Basophils % 1 % Neutrophils # 8.2 H (1.3-7.7) k/uL Lymphocytes # 2.7 (1.0-4.8) k/uL Monocytes # 0.7 (0-1.0) k/uL Eosinophils # 0.3 (0-0.7) k/uL Basophils # 0.1 (0-0.2) k/uL PT 10.5 (10.0-12.5) sec INR 0.9 (<1.2) APTT 22.4 (22.0-30.0) sec Sodium 133 L (137-145) mmol/L Potassium 5.3 H (3.5-5.1) mmol/L Chloride 104 (98-107) mmol/L Carbon Dioxide 22 (22-30) mmol/L Anion Gap 7 mmol/L BUN 21 H (7-17) mg/dL Creatinine 0.91 (0.52-1.04) mg/dL Est GFR (CKD-EPI)AfAm 65 (>60 ml/min/1.73 sqM) Est GFR (CKD-EPI)NonAf 56 (>60 ml/min/1.73 sqM) Glucose 109 H (74-99) mg/dL Calcium 10.4 H (8.4-10.2) mg/dL Magnesium 1.9 (1.6-2.3) mg/dL Total Bilirubin 1.2 (0.2-1.3) mg/dL AST 41 H (14-36) U/L ALT 22 (4-34) U/L Alkaline Phosphatase 169 H (38-126) U/L Troponin I (0.000-0.034) ng/mL Total Protein 7.6 (6.3-8.2) g/dL Albumin 4.4 (3.5-5.0) g/dL TSH 4.250 (0.465-4.680) mIU/L 11/19/23 Range/Units 20:27 WBC (3.8-10.6) k/uL RBC (3.80-5.40) m/uL Hgb (11.4-16.0) gm/dL Hct (34.0-46.0) % MCV (80.0-100.0) fL MCH (25.0-35.0) pg MCHC (31.0-37.0) g/dL RDW (11.5-15.5) % Plt Count (150-450) k/uL MPV Neutrophils % % Lymphocytes % % Monocytes % % Eosinophils % % Basophils % % Neutrophils # (1.3-7.7) k/uL Lymphocytes # (1.0-4.8) k/uL Monocytes # (0-1.0) k/uL Eosinophils # (0-0.7) k/uL Basophils # (0-0.2) k/uL PT (10.0-12.5) sec INR (<1.2) APTT (22.0-30.0) sec Sodium (137-145) mmol/L Potassium (3.5-5.1) mmol/L Chloride (98-107) mmol/L Carbon Dioxide (22-30) mmol/L Anion Gap mmol/L BUN (7-17) mg/dL Creatinine (0.52-1.04) mg/dL Est GFR (CKD-EPI)AfAm (>60 ml/min/1.73 sqM) Est GFR (CKD-EPI)NonAf (>60 ml/min/1.73 sqM) Glucose (74-99) mg/dL Calcium (8.4-10.2) mg/dL Magnesium (1.6-2.3) mg/dL Total Bilirubin (0.2-1.3) mg/dL AST (14-36) U/L ALT (4-34) U/L Alkaline Phosphatase (38-126) U/L Troponin I 0.021 (0.000-0.034) ng/mL Total Protein (6.3-8.2) g/dL Albumin (3.5-5.0) g/dL TSH (0.465-4.680) mIU/L - EKG Data -: EKG Interpreted by Ut EKG shows normal: axis (Right axis deviation), intervals (Normal), QRS complexes (Incomplete right bundle branch block) Rate: tachycardia (Rate 124 bpm) Interpretation: other (Underlying rhythm is atrial fibrillation) Disposition Clinical Impression: Atrial fibrillation with RVR, Congestive heart failure Disposition: ADMITTED IP TO THIS HOSP
[2023-11-20] MEDS ORDERED: NITROGLYCERIN SL TABS 0.4 MG TAB SUBLINGUAL PRN (00:09)
[2023-11-20] MEDS: LACTULOSE 20 GM/30 ML CUP PO SCH (09:03)
[2023-11-20] MEDS: ENOXAPARIN 60 MG/0.6 ML SYRINGE SQ SCH (09:03)
[2023-11-20] MEDS: ATORVASTATIN 20 MG TAB PO SCH (09:04)
[2023-11-20] MEDS ORDERED: HYDROcodone/APAP 7.5-325MG 1 EACH TAB PO PRN (11:46)
[2023-11-20] MEDS ORDERED: ALBUTEROL NEBULIZED 2.5 MG/3 ML INHALATION PRN (11:46)
[2023-11-20] MEDS ORDERED: ACETAMINOPHEN TAB 325 MG TAB PO PRN (11:46)
[2023-11-20] MEDS: SYMBICORT 160-4.5 MCG INHALER INHALATION SCH (12:08)
[2023-11-20] MEDS: PANTOPRAZOLE 40 MG TABLET PO SCH (12:14)
[2023-11-20] MEDS: FUROSEMIDE 10 MG/ML 2 ML VIAL IV ONE (12:14)
[2023-11-20] MEDS: METOPROLOL SUCCINATE (ER) 50 MG TAB.ER.24H PO SCH (12:14)
[2023-11-20] MEDS: amLODIPine 5 MG TAB PO SCH (12:14)
[2023-11-20] MEDS: MULTIVITAMINS, THERA 1 EACH TAB PO SCH (12:14)
--- NOTE | 2023-11-20 13:17 | P.CRDCN ---
History of Present Illness Consult date: 11/20/23 Reason for Consult (text): New onset a fib History of present illness: This is an 88-year-old female with past medical history of hypertension, hyperlipidemia, COPD, subarachnoid hemorrhage in 2012 not requiring surgery, AAA repair, remote history of tobacco use, chronic hypoxic respiratory failure on home O2. We have been asked to evaluate the patient for A-fib with RVR. Patient denies any previous cardiac workup and no cardiac history. She states that 3 weeks ago she was started on home oxygen. 3 weeks ago she was having shortness of breath and fluttering in her chest. She denies having been told she had atrial fibrillation in the past. Regarding lower extremity edema, patient states that she has had that for many years and has not worsened today. Patient is s/p Cardizem bolus of 10 mg followed by drip at 5 mg/h and Lovenox subcu. Patient presented with A-fib with RVR, telemetry is currently A-fib running in the 90s. She is currently on Cardizem drip although it was paused during the night. Discussed with patient need for anticoagulation to prevent stroke. There is concern the patient has history of subarachnoid hemorrhage in 2012. Patient did not require surgical intervention at the time. Patient has an appointment with Dr. Gunderson on 11/16 to be established as new patient. Blood pressure 93/59, heart rate 79-107, pulse ox 94% on 3 L nasal cannula. EKG: Atrial fibrillation at a ventricular rate of 124 bpm Chest x-ray: COPD. Correlate for superimposed CHF with pulmonary vascular congestion and trace effusions. Laboratory studies: WBC 12.1, hemoglobin 16.2. Potassium 5.3, creatinine 0.91. Troponin 0.021, 0.045 and 0.047. AST 41, alkaline phosphatase 169. TSH 4.25. Home cardiac medications: Amlodipine 5 mg at bedtime, losartan 50 mg daily, magnesium oxide 400 mg at bedtime, Aldactone 25 mg daily Review Of Systems: At the time of my exam: CONSTITUTIONAL: Denies fever or chills. HEENT: Denies blurred vision, vision changes, or eye pain. Denies hemoptysis CARDIOVASCULAR: Denies chest pain. Denies orthopnea. Denies PND. Reports palpitations RESPIRATORY: Denies shortness of breath. GASTROINTESTINAL: Denies abdominal pain. Denies nausea or vomiting. HEMATOLOGIC: Denies bleeding disorders. GENITOURINARY: Denies any blood in urine. SKIN: Denies puritis. Denies rash. Physical examination: Gen: This is an 88-year-old female in no acute distress VS: reviewed HEENT: Head is atraumatic, normocephalic. Pupils equal, round. Sclerae is anicteric. NECK: Supple. No JVD. LUNGS: Clear to auscultation. No wheezes or rhonchi. No intercostal retractions. HEART: Irregular rate and rhythm. No murmur. ABDOMEN: Soft No tenderness. EXTREMITIES: No pedal edema. No calf tenderness. NEUROLOGICAL: Patient is awake, alert and oriented x3. Assessment: New onset A-fib with RVR Hypertension Hyperlipidemia COPD History of subarachnoid hemorrhage in 2011 History of AAA repair Remote history of tobacco use, quit smoking at age 74 Plan: Resume patient's home cardiac medications Change aspirin to 81 mg daily Discontinue Cardizem drip Start patient on Toprol XL 50 mg daily Start patient on Lasix 20 mg oral daily Obtain records from [facility] from patient's subarachnoid hemorrhage in 2011 Obtain 2-D echocardiogram and Doppler study to assess cardiac structure and function After more information is obtained, the subjective anticoagulation will again be addressed and discussed. Further recommendations to follow based upon clinical course Thank you kindly for this consultation. Nurse practitioner note has been reviewed, I agree with documented findings and plan of care. Patient was seen and examined. 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; CERVICAL CANCER, right foot skin cancer removed History of Any Multi-Drug Resistant Organisms: None Reported Past Surgical History: Appendectomy, Cholecystectomy, Hysterectomy Additional Past Surgical History / Comment(s): left upper lobe lung removal, subarachnoid hemmorrhage, AAA repair Past Anesthesia/Blood Transfusion Reactions: Previous Problems w/ Anesthesia Additional Past Anesthesia/Blood Transfusion Reaction / Comment(s): takes a long time to wake up and become oriented Past Psychological History: No Psychological Hx Reported Smoking Status: Former smoker Past Alcohol Use History: Occasional Past Drug Use History: None Reported Medications and Allergies Home Medications Medication Instructions Recorded Confirmed Type ALPRAZolam [Xanax] 0.125 mg PO HS 10/31/19 11/20/23 History Albuterol Inhaler [Ventolin Hfa 2 puff INHALATION RT-QID PRN 10/31/19 11/20/23 History Inhaler] Losartan Potassium 50 mg PO DAILY 10/31/19 11/20/23 History Multivitamins, Thera [Multivitamin 1 tab PO DAILY 10/31/19 11/20/23 History (formulary)] Spironolactone 25 mg PO DAILY 10/31/19 11/20/23 History amLODIPine [Norvasc] 5 mg PO HS@1700 10/31/19 11/20/23 History Docusate [Colace] 100 mg PO HS@1700 11/20/23 11/20/23 History Fluticasone/Umeclidin/Vilanter 1 puff INHALATION RT-DAILY 11/20/23 11/20/23 History [Trelegy Ellipta 200-62.5-25] Magnesium Oxide [Magox 400] 400 mg PO HS@1700 11/20/23 11/20/23 History Vitamin B-12(Unknown Dose) 1 tab PO DAILY 11/20/23 11/20/23 History Allergies Allergy/AdvReac Type Severity Reaction Status Date / Time nitrofurantoin Allergy Unknown Verified 11/20/23 11:47 [From Macrobid] Tsdouhe-IMW-BxJ Reductase Allergy Unknown Verified 11/20/23 11:47 Inhibitor [Eceinrn-Ezg-Xar Reductase Inhibitor] cortisone AdvReac Unknown Verified 11/20/23 11:47 Physical Exam Vitals: Vital Signs Temp Pulse Pulse Resp BP BP Pulse Ox 11/20/23 03:29 79 16 93/59 94 L 11/20/23 02:00 94 20 11/20/23 01:22 97.7 F 94 18 134/94 93 L 11/20/23 00:00 87 22 103/78 96 11/19/23 22:00 101 H 17 90/78 96 11/19/23 21:28 134 H 18 130/89 95 11/19/23 20:05 98.3 F 141 H 18 133/83 95 Intake and Output 11/19/23 11/20/23 11/20/23 22:59 06:59 14:59 Other: Voiding Method Toilet Bedside Commode # Voids 1 Weight 63.503 kg 68.5 kg Results 11/19/23 20:27 11/19/23 20:27 Cardiac Enzymes 11/19/23 11/19/23 11/20/23 Range/Units 20:27 20:27 00:50 AST 41 H (14-36) U/L Troponin I 0.021 0.045 H* (0.000-0.034) ng/mL 11/20/23 Range/Units 03:59 AST (14-36) U/L Troponin I 0.047 H* (0.000-0.034) ng/mL Coagulation 11/19/23 Range/Units 20:27 PT 10.5 (10.0-12.5) sec APTT 22.4 (22.0-30.0) sec CBC 11/19/23 Range/Units 20:27 WBC 12.1 H (3.8-10.6) k/uL RBC 5.13 (3.80-5.40) m/uL Hgb 16.2 H (11.4-16.0) gm/dL Hct 50.5 H (34.0-46.0) % Plt Count 295 (150-450) k/uL Comprehensive Metabolic Panel 11/19/23 Range/Units 20:27 Sodium 133 L (137-145) mmol/L Potassium 5.3 H (3.5-5.1) mmol/L Chloride 104 (98-107) mmol/L Carbon Dioxide 22 (22-30) mmol/L BUN 21 H (7-17) mg/dL Creatinine 0.91 (0.52-1.04) mg/dL Glucose 109 H (74-99) mg/dL Calcium 10.4 H (8.4-10.2) mg/dL AST 41 H (14-36) U/L ALT 22 (4-34) U/L Alkaline Phosphatase 169 H (38-126) U/L Total Protein 7.6 (6.3-8.2) g/dL Albumin 4.4 (3.5-5.0) g/dL Current Medications Generic Name Dose Route Start Last Admin Trade Name Freq PRN Reason Stop Dose Admin Aspirin 325 mg 11/21/23 09:00 Aspirin 325 Mg Tab PO DAILY [facility] Atorvastatin Calcium 20 mg 11/20/23 09:00 Atorvastatin 20 Mg Tab PO DAILY [facility] Enoxaparin Sodium 60 mg 11/20/23 09:00 Enoxaparin 60 Mg/0.6 Ml Syringe SQ Q12HR DEBRA Sodium Chloride 1,000 mls @ 75 mls/hr 11/19/23 20:16 11/19/23 21:37 Saline 0.9% IV 11/20/23 09:35 75 mls/hr .[id number] STA Administration Diltiazem HCl 125 mg/ Sodium 125 mls @ 5 mls/hr 11/19/23 20:30 11/19/23 21:38 Chloride IV 5 mg/hr .Q24H DEBRA 5 mls/hr Administration 5 MG/HR Lactulose 20 gm 11/20/23 09:00 Lactulose 20 Gm/30 Ml Cup PO BID DEBRA Nitroglycerin 0.4 mg 11/20/23 00:09 Nitroglycerin Sl Tabs 0.4 Mg Tab SUBLINGUAL Q5M PRN Chest Pain Intake and Output 11/19/23 11/20/23 11/20/23 22:59 06:59 14:59 Other: Voiding Method Toilet Bedside Commode # Voids 1 Weight 63.503 kg 68.5 kg 11/19/23 20:27 11/19/23 20:27
[2023-11-20] MEDS: ALPRAZolam 0.25 MG TAB PO PRN (19:51)
[2023-11-20] MEDS ORDERED: CALCIUM CARBONATE 500 MG CHEWABLE PO PRN (20:17)
[2023-11-20] MEDS ORDERED: MELATONIN 3 MG TABLET PO PRN (20:17)
[2023-11-20] MEDS ORDERED: NALOXONE 0.4 MG/ML 1 ML VIAL IV PRN (20:17)
[2023-11-20] MEDS ORDERED: ONDANSETRON 4 MG/2 ML VIAL IVP PRN (20:17)
--- NOTE | 2023-11-20 20:18 | P.HPIM ---
History of Present Illness H&P Date: 11/20/23 Chief Complaint: Short of breath History of presenting complaint: This is a pleasant 88-year-old patient of Dr. Aldo Sibley. Chronic stable medical conditions include COPD, hyperlipidemia, hypertension, thyroid nodule, cervical cancer with hysterectomy. left upper lobe of the lung removed. History of subarachnoid hemorrhage. Left-sided colostomy with parastomal herni a. Patient presented with 1 day history of increasing shortness of breath and fluttering in the chest. Her blood pressure was fluctuating. From high to low. And so was a pulse ox meter. Was not feeling well. Tired. No cough. ER found to be in atrial fibrillation with a rate of 124.Was put on a Cardizem drip. 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 Patient is a . Lives alone Physical examination: VITAL SIGNS: 98.3, 141, 18, 133/83, 95% on 4 L upon presentation GENERAL: BMI 29.5, reclining in a recliner EYES: Pupils equal. Conjunctiva normal. HEENT: External appearance of nose and ears normal, oral cavity grossly normal. NECK: JVD not raised; masses not palpable. HEART: Sounds irregular no edema. LUNGS: Respiratory rate normal; decreased breath sounds. ABDOMEN: Colostomy with a parastomal hernia, liver spleen not palpable, no masses palpable. PSYCH: Alert and oriented x3; mood and affect normal. NEUROLOGICAL: Cranial nerves grossly intact; no facial asymmetry, power and sensation grossly intact. MUSCULOSKELETAL: Evidence of OA LYMPHATICS: No lymph nodes palpable in the axilla and neck INVESTIGATIONS, reviewed in the clinical context: November 18: White count 12.1 hemoglobin 16.2 platelets 295 sodium 133 potassium 5.3 BUN 21 creatinine 0.91 glucose 109 Troponin I 0.021, 0.045, 0.047 TSH 4.2 EKG tracing personally reviewed by nh-atrial fibrillation rate 124. Right bundle branch block pattern. Chest x-ray film personally reviewed by me-venous prominence some cardiomegaly 2D echo Assessment and plan: -Acute congestive heart failure exacerbation precipitated by uncontrolled atrial fibrillation. EF not known. Received IV Lasix. Now placed on oral Lasix. -New onset atrial fibrillation with rapid ventricular rate Initially put on Cardizem drip. Toprol-XL 50 mg a day added Cardiology following Lovenox 60 mg every 12 -COPD in an ex-smoker Symbicort. Albuterol as needed -Essential hypertension Toprol-XL. Top home dose of amlodipine -Hyperlipidemia Lipitor Care was discussed with the patient. Cardiology following. 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; CERVICAL CANCER, right foot skin cancer removed History of Any Multi-Drug Resistant Organisms: None Reported Past Surgical History: Appendectomy, Cholecystectomy, Hysterectomy Additional Past Surgical History / Comment(s): left upper lobe lung removal, subarachnoid hemmorrhage, AAA repair Past Anesthesia/Blood Transfusion Reactions: Previous Problems w/ Anesthesia Additional Past Anesthesia/Blood Transfusion Reaction / Comment(s): takes a long time to wake up and become oriented Past Psychological History: No Psychological Hx Reported Smoking Status: Former smoker Past Alcohol Use History: Occasional Past Drug Use History: None Reported Medications and Allergies Home Medications Medication Instructions Recorded Confirmed Type ALPRAZolam [Xanax] 0.125 mg PO HS 10/31/19 11/20/23 History Albuterol Inhaler [Ventolin Hfa 2 puff INHALATION RT-QID PRN 10/31/19 11/20/23 History Inhaler] Losartan Potassium 50 mg PO DAILY 10/31/19 11/20/23 History Multivitamins, Thera [Multivitamin 1 tab PO DAILY 10/31/19 11/20/23 History (formulary)] Spironolactone 25 mg PO DAILY 10/31/19 11/20/23 History amLODIPine [Norvasc] 5 mg PO HS@1700 10/31/19 11/20/23 History Docusate [Colace] 100 mg PO HS@1700 11/20/23 11/20/23 History Fluticasone/Umeclidin/Vilanter 1 puff INHALATION RT-DAILY 11/20/23 11/20/23 History [Trelegy Ellipta 200-62.5-25] Magnesium Oxide [Magox 400] 400 mg PO HS@1700 11/20/23 11/20/23 History Vitamin B-12(Unknown Dose) 1 tab PO DAILY 11/20/23 11/20/23 History Allergies Allergy/AdvReac Type Severity Reaction Status Date / Time nitrofurantoin Allergy Unknown Verified 11/20/23 11:47 [From Macrobid] Aysjpbm-SXJ-JpU Reductase Allergy Unknown Verified 11/20/23 11:47 Inhibitor [Dzpivzg-Fzb-Kic Reductase Inhibitor] cortisone AdvReac Unknown Verified 11/20/23 11:47 Physical Exam Vitals: Vital Signs Temp Pulse Pulse Resp BP BP Pulse Ox 11/20/23 08:48 98.0 F 111 H 20 131/76 94 L 11/20/23 03:29 79 16 93/59 94 L 11/20/23 02:00 94 20 11/20/23 01:22 97.7 F 94 18 134/94 93 L 11/20/23 00:00 87 22 103/78 96 11/19/23 22:00 101 H 17 90/78 96 11/19/23 21:28 134 H 18 130/89 95 11/19/23 20:05 98.3 F 141 H 18 133/83 95 Intake and Output 11/19/23 11/20/23 11/20/23 22:59 06:59 14:59 Intake Total 295.75 Balance 295.75 Intake: Intake, IV Titration 55.75 Amount Diltiazem 125 mg In 55.75 Sodium Chloride 0.9% 100 ml @ 5 MG/HR 5 mls/hr IV .Q24H [facility] Rx#:[id number] Oral 240 Other: Voiding Method Toilet Toilet Bedside Commode Bedside Commode # Voids 1 1 Weight 63.503 kg 68.5 kg Results CBC & Chem 7: 11/19/23 20:27 11/19/23 20:27 Labs: Abnormal Lab Results - Last 24 Hours (Table) 11/19/23 11/19/23 11/20/23 Range/Units 20:27 20:27 00:50 WBC 12.1 H (3.8-10.6) k/uL Hgb 16.2 H (11.4-16.0) gm/dL Hct 50.5 H (34.0-46.0) % Neutrophils # 8.2 H (1.3-7.7) k/uL Sodium 133 L (137-145) mmol/L Potassium 5.3 H (3.5-5.1) mmol/L BUN 21 H (7-17) mg/dL Glucose 109 H (74-99) mg/dL Calcium 10.4 H (8.4-10.2) mg/dL AST 41 H (14-36) U/L Alkaline Phosphatase 169 H (38-126) U/L Troponin I 0.045 H* (0.000-0.034) ng/mL 11/20/23 Range/Units 03:59 WBC (3.8-10.6) k/uL Hgb (11.4-16.0) gm/dL Hct (34.0-46.0) % Neutrophils # (1.3-7.7) k/uL Sodium (137-145) mmol/L Potassium (3.5-5.1) mmol/L BUN (7-17) mg/dL Glucose (74-99) mg/dL Calcium (8.4-10.2) mg/dL AST (14-36) U/L Alkaline Phosphatase (38-126) U/L Troponin I 0.047 H* (0.000-0.034) ng/mL Thrombosis Risk Factor Assmnt - Choose All That Apply Any of the Below Risk Factors Present?: Yes Each Factor Represents 1 point: Abnormal pulmonary function (COPD), Obesity (BMI >25) Other Risk Factors: Yes Each Risk Factor Represents 3 Points: Age 75 years or older Other congenital or acquired thrombophilia - If yes, enter type in comment: No Thrombosis Risk Factor Assessment Total Risk Factor Score: 5 Thrombosis Risk Factor Assessment Level: High Risk
[2023-11-21] MEDS ORDERED: ASPIRIN 325 MG TAB PO SCH (09:00)
[2023-11-21] MEDS ORDERED: ASPIRIN 81 MG PO SCH (09:00)
[2023-11-21] MEDS: FUROSEMIDE 20 MG TAB PO SCH (09:18)
[2023-11-21] MEDS: ASPIRIN 81 MG PO SCH (09:18)
[2023-11-21 09:24] LABS: African American GFR (CKD) 76 (>60 ml/min/1.73 sqM); Anion Gap 6 mmol/L; Blood Urea Nitrogen 19 mg/dL (7-17); Calcium 10.3 mg/dL (8.4-10.2); Carbon Dioxide 24 mmol/L (22-30); Chloride 107 mmol/L (98-107); Glucose 108 mg/dL (74-99); Non-African American GFR(CKD) 66 (>60 ml/min/1.73 sqM); Potassium 4.9 mmol/L (3.5-5.1); Sodium 137 mmol/L (137-145)
[2023-11-21] MEDS: FUROSEMIDE 10 MG/ML 2 ML VIAL IV ONE (11:45)
--- NOTE | 2023-11-21 12:12 | P.PN ---
Progress Note - Text Progress Note Date: 11/21/23 Chief Complaint: Short of breath History of presenting complaint: This is a pleasant 88-year-old patient of Dr. Aldo Sibley. Chronic stable medical conditions include COPD, hyperlipidemia, hypertension, thyroid nodule, cervical cancer with hysterectomy. left upper lobe of the lung removed. History of subarachnoid hemorrhage. Left-sided colostomy with parastomal hernia. Patient presented with 1 day history of increasing shortness of breath and fluttering in the chest. Her blood pressure was fluctuating. From high to low. And so was a pulse ox meter. Was not feeling well. Tired. No cough. ER found to be in atrial fibrillation with a rate of 124.Was put on a Cardizem drip. November 20: Sitting at edge of the bed. Breathing a bit better. But not back to baseline. Crackles in left base. 1 dose of IV Lasix 20 mg given. 2D echo pending. Personal monitor showing heart rate of 110-124 Active Medications Acetaminophen (Acetaminophen Tab 325 Mg Tab) 650 mg PO Q6HR PRN PRN Reason: Mild Pain or Fever > 100.5 Hydrocodone Bitart/Acetaminophen (Hydrocodone/Apap 7.5-325mg 1 Each Tab) 1 each PO Q6H PRN PRN Reason: moderate to severe Pain Albuterol Sulfate (Albuterol Nebulized 2.5 Mg/3 Ml) 2.5 mg INHALATION RT-QID PRN PRN Reason: Shortness Of Breath Alprazolam (Alprazolam 0.25 Mg Tab) 0.25 mg PO BID PRN PRN Reason: Anxiety Last Admin: 11/20/23 19:51 Dose: 0.25 mg Apixaban (Apixaban 2.5 Mg Tablet) 2.5 mg PO BID [facility]; Protocol Atorvastatin Calcium (Atorvastatin 20 Mg Tab) 20 mg PO DAILY [facility] Last Admin: 11/21/23 09:18 Dose: 20 mg Budesonide/Formoterol Fumarate (Symbicort 160-4.5 Mcg Inhaler) 2 puff INHALATION RT-BID [facility] Last Admin: 11/21/23 08:30 Dose: 2 puff Calcium Carbonate/Glycine (Calcium Carbonate 500 Mg Chewable) 1,000 mg PO Q4HR PRN PRN Reason: Dyspepsia Furosemide (Furosemide 20 Mg Tab) 20 mg PO DAILY [facility] Last Admin: 11/21/23 09:18 Dose: 20 mg Lactulose (Lactulose 20 Gm/30 Ml Cup) 20 gm PO BID [facility] Last Admin: 11/21/23 09:18 Dose: Not Given Melatonin (Melatonin 3 Mg Tablet) 3 mg PO HS PRN PRN Reason: Insomnia Metoprolol Succinate (Metoprolol Succinate (Er) 50 Mg Tab.Er.24h) 50 mg PO DAILY [facility] Last Admin: 11/21/23 09:18 Dose: 50 mg Multivitamins (Multivitamins, Thera 1 Each Tab) 1 each PO DAILY [facility] Last Admin: 11/21/23 09:18 Dose: 1 each Naloxone HCl (Naloxone 0.4 Mg/Ml 1 Ml Vial) 0.2 mg IV Q2M PRN PRN Reason: Opioid Reversal Nitroglycerin (Nitroglycerin Sl Tabs 0.4 Mg Tab) 0.4 mg SUBLINGUAL Q5M PRN PRN Reason: Chest Pain Ondansetron HCl (Ondansetron 4 Mg/2 Ml Vial) 4 mg IVP Q8HR PRN PRN Reason: Nausea And Vomiting Pantoprazole Sodium (Pantoprazole 40 Mg Tablet) 40 mg PO AC-BRKFST [facility] Last Admin: 11/21/23 06:55 Dose: 40 mg Past medical history to include: COPD, hyperlipidemia, hypertension, thyroid nodule, cervical cancer, subarachnoid hemorrhage, AAA repair, left upper lobe of the lung removed,, Colostomy without parastomal hernia Social history: Stopped smoking about 15 years ago. Patient is a . Lives alone Physical examination: VITAL SIGNS: 98, 61, 16, 102 x 67, 95% on 3 L GENERAL: BMI 29.5, serial the bed EYES: Pupils equal. Conjunctiva normal. HEENT: External appearance of nose and ears normal, oral cavity grossly normal. NECK: JVD not raised; masses not palpable. HEART: Sounds irregular no edema. LUNGS: Respiratory rate normal; basal fine close ABDOMEN: Colostomy with a parastomal hernia, liver spleen not palpable, no masses palpable. PSYCH: Alert and oriented x3; mood and affect normal. NEUROLOGICAL: Cranial nerves grossly intact; no facial asymmetry, power and sensation grossly intact. MUSCULOSKELETAL: Evidence of OA INVESTIGATIONS, reviewed in the clinical context: November 20: Potassium 4.9 creatinine 0.8 November 18: White count 12.1 hemoglobin 16.2 platelets 295 sodium 133 potassium 5.3 BUN 21 creatinine 0.91 glucose 109 Troponin I 0.021, 0.045, 0.047 TSH 4.2 EKG tracing personally reviewed by me-atrial fibrillation rate 124. Right bundle branch block pattern. Chest x-ray film personally reviewed by me-venous prominence some cardiomegaly 2D echo Assessment and plan: -Acute congestive heart failure exacerbation precipitated by uncontrolled atrial fibrillation. EF not known. Give another dose of IV Lasix 20 mg. -New onset atrial fibrillation with rapid ventricular rate Initially put on Cardizem drip. Toprol-XL 50 mg a day Cardiology following Started on Eliquis -COPD in an ex-smoker Symbicort. Albuterol as needed -Essential hypertension Toprol-XL. Top home dose of amlodipine -Hyperlipidemia Lipitor Lasix 20 mg. Increase activity look at heart rate. 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; CERVICAL CANCER, right foot skin cancer removed History of Any Multi-Drug Resistant Organisms: None Reported Past Surgical History: Appendectomy, Cholecystectomy, Hysterectomy Additional Past Surgical History / Comment(s): left upper lobe lung removal, subarachnoid hemmorrhage, AAA repair Past Anesthesia/Blood Transfusion Reactions: Previous Problems w/ Anesthesia Additional Past Anesthesia/Blood Transfusion Reaction / Comment(s): takes a long time to wake up and become oriented Past Psychological History: No Psychological Hx Reported Smoking Status: Former smoker Past Alcohol Use History: Occasional Past Drug Use History: None Reported
--- NOTE | 2023-11-21 12:41 | CA ---
Transthoracic Echo Report Name: Lety Adames Age: 88 Gender: F : 1935 Exam Date: 11/21/2023 09:46 Exam Location: [facility] Ht (in): 60 Wt (lb): 151 Ordering Physician: Atif Wood MD ([id number]) Attending/Referring Phys: Dwarf Tree Grower Laly Beard RDCS Procedure CPT: Indications: afib Cardiac Hx: Technical Quality: Fair Contrast 1: Total Dose (mL): Contrast 2: Total Dose (mL): MEASUREMENTS (Male / Female) Normal Values 2D ECHO LV Diastolic Diameter PLAX 3.5 cm 4.2 - 5.9 / 3.9 - 5.3 cm IVS Diastolic Thickness 1.3 cm 0.6 - 1.0 / 0.6 - 0.9 cm LVPW Diastolic Thickness 1.4 cm 0.6 - 1.0 / 0.6 - 0.9 cm LV Relative Wall Thickness 0.8 RV Internal Dim ED PLAX 2.7 cm LVOT Diameter 1.7 cm LV Diastolic Volume MOD BP 41.2 cm??? 67 - 155 / 56 - 104 cm??? LV Systolic Volume MOD BP 15.1 cm??? 22 - 58 / 19 - 49 cm??? LV Ejection Fraction MOD BP 63.3 % >= 55 % LV Cardiac Index MOD BP 1251.6 cm???/min???m??? LV Diastolic Volume MOD 4C 38.4 cm??? LV Systolic Volume MOD 4C 11.9 cm??? LV Ejection Fraction MOD 4C 68.9 % LV Cardiac Index MOD 4C 1270.3 cm???/min???m??? LV Diastolic Length 4C 6.3 cm LV Systolic Length 4C 5.6 cm LV Diastolic Volume MOD 2C 44.6 cm??? LV Systolic Volume MOD 2C 19.1 cm??? LV Ejection Fraction MOD 2C 57.1 % LV Cardiac Index MOD 2C 1223.5 cm???/min???m??? LV Diastolic Length 2C 6.3 cm LV Systolic Length 2C 5.6 cm M-MODE Aortic Root Diameter MM 3.1 cm LA Systolic Diameter MM 2.5 cm LA Ao Ratio MM 0.8 AV Cusp Separation MM 0.8 cm DOPPLER AV Peak Velocity 253.4 cm/s AV Peak Gradient 29.3 mmHg AV Mean Velocity 173.5 cm/s AV Mean Gradient 17.4 mmHg AV Velocity Time Integral 46.5 cm LVOT Peak Velocity 54.4 cm/s LVOT Peak Gradient 1.2 mmHg LVOT Velocity Time Integral 11.9 cm LVOT Stroke Volume 28.3 cm??? LVOT Stroke Volume Index 17.1 ml/m??? LVOT Cardiac Index 1359.0 cm???/min???m??? AV Area Cont Eq vti 0.6 cm??? AV Area Cont Eq pk 0.5 cm??? TR Peak Velocity 240.3 cm/s TR Peak Gradient 23.1 mmHg Right Ventricular Systolic Press 33.1 mmHg FINDINGS Left Ventricle Left ventricular ejection fraction is estimated at 55-60%. No obvious regional wall motion abnormalities. Left ventricular cavity size normal.Moderately increased left ventricular wall thickness. Right Ventricle Normal right ventricular size and function. Right ventricular systolic pressure within normal limits. Right Atrium Normal right atrial size. Left Atrium Moderate left atrial dilatation. Mitral Valve Structurally normal mitral valve. Moderate mitral regurgitation. Mitral valve thickened. Moderate mitral annular calcification. Aortic Valve Aortic valve not well visualized. Mild to Moderate aortic stenosis with a peak gradient of 29mmHg and a mean gradient of 17 mmHg. Tricuspid Valve Structurally normal tricuspid valve. Mild tricuspid regurgitation. Pulmonic Valve Structurally normal pulmonic valve. Trace pulmonic regurgitation. Pericardium No pericardial or pleural effusion. Aorta Normal size aortic root and proximal ascending aorta. CONCLUSIONS 1. Normal left ventricle size and systolic function with left ventricle hypertrophy 2. Moderate mitral regurgitation 3. Mild to moderate aortic stenosis 4. Mild tricuspid regurgitation Previewed by: Dr. Pina Blankenship MD (Electronically Signed) Final Date: 21 November 2023 12:41
--- NOTE | 2023-11-21 14:15 | P.PN ---
Subjective Progress Note Date: 11/21/23 Reason for Consult (text): New onset a fib History of present illness: This is an 88-year-old female with past medical history of hypertension, hyperlipidemia, COPD, subarachnoid hemorrhage in 2012 not requiring surgery, AAA repair, remote history of tobacco use, chronic hypoxic respiratory failure on home O2. We have been asked to evaluate the patient for A-fib with RVR. Patient denies any previous cardiac workup and no cardiac history. She states that 3 weeks ago she was started on home oxygen. 3 weeks ago she was having shortness of breath and fluttering in her chest. She denies having been told she had atrial fibrillation in the past. Regarding lower extremity edema, patient states that she has had that for many years and has not worsened today. Patient is s/p Cardizem bolus of 10 mg followed by drip at 5 mg/h and Lovenox subcu. Patient presented with A-fib with RVR, telemetry is currently A-fib running in the 90s. She is currently on Cardizem drip although it was paused during the night. Discussed with patient need for anticoagulation to prevent stroke. There is concern the patient has history of subarachnoid hemorrhage in 2011. Patient did not require surgical intervention at the time. Patient has an appointment with Dr. Gunderson on 11/16 to be established as new patient. Blood pressure 93/59, heart rate 79-107, pulse ox 94% on 3 L nasal cannula. EKG: Atrial fibrillation at a ventricular rate of 124 bpm Chest x-ray: COPD. Correlate for superimposed CHF with pulmonary vascular congestion and trace effusions. Laboratory studies: WBC 12.1, hemoglobin 16.2. Potassium 5.3, creatinine 0.91. Troponin 0.021, 0.045 and 0.047. AST 41, alkaline phosphatase 169. TSH 4.25. Home cardiac medications: Amlodipine 5 mg at bedtime, losartan 50 mg daily, magnesium oxide 400 mg at bedtime, Aldactone 25 mg daily 11/20 She remains in atrial fibrillation with controlled rate. She is on a Lovenox SQ. [facility] from [facility] have not been obtained. Blood pressure 102/67, heart rate 61, pulse ox 95% on 3 L. Patient is not home oxygen. Repeat blood work reveals sodium 137, potassium 4.9, BUN 19 and crea tinine 0.8. Echocardiogram reveals EF 55 to 60%, moderate mitral regurgitation, mild to moderate aortic stenosis, mild tricuspid regurgitation. Patient recommended to start anticoagulation which she is in agreement. Physical examination: Gen: This is an 88-year-old female in no acute distress VS: reviewed HEENT: Head is atraumatic, normocephalic. Pupils equal, round. Sclerae is anicteric. NECK: Supple. No JVD. LUNGS: Clear to auscultation. No wheezes or rhonchi. No intercostal retractions. HEART: Irregular rate and rhythm. No murmur. ABDOMEN: Soft No tenderness. EXTREMITIES: No pedal edema. No calf tenderness. NEUROLOGICAL: Patient is awake, alert and oriented x3. Assessment: New onset A-fib with RVR, currently controlled rate Hypertension Hyperlipidemia COPD History of subarachnoid hemorrhage in 2011 History of AAA repair Remote history of tobacco use, quit smoking at age 74 Chronic hypoxic respiratory failure on home O2 Plan: Discontinue aspirin Continue patient on Toprol XL 50 mg daily, Lasix 20 mg daily, atorvastatin 20 mg daily Start patient on Eliquis 2.5 mg twice daily Discontinue patient's home amlodipine and losartan New prescriptions have been sent to her pharmacy Patient is cleared for discharge from cardiology and may follow-up in the office with Dr. Wood in 1 to 2 weeks. Nurse practitioner note has been reviewed, I agree with documented findings and plan of care. Patient was seen and examined. Objective - Vital Signs Vital signs: Vital Signs Temp 98.0 F 11/21/23 11:51 Pulse 61 11/21/23 11:51 Resp 16 11/21/23 11:51 BP 102/67 11/21/23 11:51 Pulse Ox 95 11/21/23 11:51 FiO2 Intake & Output 11/20/23 11/21/23 11/21/23 18:59 06:59 18:59 Intake Total 551.917 360 Balance 551.917 360 Weight 64.4 kg Intake: Intake, IV Titration 71.917 Amount Diltiazem 125 mg In 71.917 Sodium Chloride 0.9% 100 ml @ 5 MG/HR 5 mls/hr IV .Q24H DEBRA Rx#:[id number] Oral 480 360 Other: Voiding Method Toilet Toilet Bedside Commode Bedside Commode # Voids 1 2 # Bowel Movements 1 - Labs CBC & Chem 7: 11/19/23 20:27 11/21/23 07:44 Labs: Abnormal Lab Results - Last 24 Hours (Table) 11/21/23 Range/Units 07:44 BUN 19 H (7-17) mg/dL Glucose 108 H (74-99) mg/dL Calcium 10.3 H (8.4-10.2) mg/dL
[2023-11-21 15:41] LABS: Chol/HDL Ratio 4.12 Ratio; LDL Cholesterol,Calculated 117.2 mg/dL (0.0-131.0)
[2023-11-21] MEDS: APIXABAN 2.5 MG TABLET PO SCH (20:25)
[2023-11-22] MEDS: SPIRONOLACTONE 25 MG TAB PO SCH (08:41)
[2023-11-22 11:14] VITALS: BP 118/73; PULSE 64; RESP 14; TEMP 98.4
--- NOTE | 2023-11-22 15:48 | P.DS ---
Providers Date of admission: 11/20/23 00:09 Expected date of discharge: 11/22/23 Attending physician: Tahir Garcia Consults: 11/20/23 00:09 Consult Physician Routine Consulting Provider: Gonzalo Rainey Consult Reason/Comments: Onset atrial fibrillation, rapid ventricular rate Do you want consulting provider notified?: Yes Primary care physician: Aldo Sibley [facility] Course: Chief Complaint: Short of breath History of presenting complaint: This is a pleasant 88-year-old patient of Dr. Aldo Sibley. Chronic stable medical conditions include COPD, hyperlipidemia, hypertension, thyroid nodule, cervical cancer with hysterectomy. left upper lobe of the lung removed. History of subarachnoid hemorrhage. Left-sided colostomy with parastomal hernia . Patient presented with 1 day history of increasing shortness of breath and fluttering in the chest. Her blood pressure was fluctuating. From high to low. And so was a pulse ox meter. Was not feeling well. Tired. No cough. ER found to be in atrial fibrillation with a rate of 124.Was put on a Cardizem drip. November 20: Sitting at edge of the bed. Breathing a bit better. But not back to baseline. Crackles in left base. 1 dose of IV Lasix 20 mg given. 2D echo pending. Personal monitor showing heart rate of 110-124 November 21: Patient doing much better today. Sinus rhythm heart rate into 75. Breathing much better. Has been up to the bathroom. Will add 20 mg of Lasix home medications. 2D echo showed EF 55 to 60%. Moderately increased left ventricular wall thickness. Care was discussed with patient and daughter at the bedside. Questions answered. 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 Patient is a . Lives alone Physical examination: VITAL SIGNS: 98.4, 64, 14, 118/73, 97% 2 L GENERAL: Sitting up in bed EYES: Pupils equal. Conjunctiva normal. HEENT: External appearance of nose and ears normal, oral cavity grossly normal. Hard of hearing NECK: JVD not raised; masses not palpable. HEART: Sounds irregular no edema. LUNGS: Respiratory rate normal; lungs clear ABDOMEN: Colostomy with a parastomal hernia, liver spleen not palpable, no masses palpable. PSYCH: Alert and oriented x3; mood and affect normal. NEUROLOGICAL: Cranial nerves grossly intact; no facial asymmetry, power and sensation grossly intact. MUSCULOSKELETAL: Evidence of OA INVESTIGATIONS, reviewed in the clinical context: November 20: Potassium 4.9 creatinine 0.8. proBNP 6260 LDL 117 November 18: White count 12.1 hemoglobin 16.2 platelets 295 sodium 133 potassium 5.3 BUN 21 creatinine 0.91 glucose 109 Troponin I 0.021, 0.045, 0.047 TSH 4.2 EKG tracing personally reviewed by me-atrial fibrillation rate 124. Right bundle branch block pattern. Chest x-ray film personally reviewed by me-venous prominence some cardiomegaly 2D echo: EF 55 to 60%. Moderate increased LV thickness. Moderate MR. Mild to moderate arctic stenosis with a peak gradient 29 mmHg. Assessment and plan: -Acute congestive heart failure exacerbation from diastolic dysfunction EF 55 to 60%. Precipitated by uncontrolled atrial fibrillation. Discharge on Lasix 20 mg a day -Paroxysmal atrial fibrillation now back in sinus rhythm Initially put on Cardizem drip. Toprol-XL 50 mg a day Cardiology following Eliquis -Hard of hearing -COPD in an ex-smoker Symbicort. Albuterol as needed -Essential hypertension Toprol-XL. Amlodipine and losartan discontinued -Hyperlipidemia Lipitor Disposition: Home 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; CERVICAL CANCER, right foot skin cancer removed History of Any Multi-Drug Resistant Organisms: None Reported Past Surgical History: Appendectomy, Cholecystectomy, Hysterectomy Additional Past Surgical History / Comment(s): left upper lobe lung removal, subarachnoid hemmorrhage, AAA repair Past Anesthesia/Blood Transfusion Reactions: Previous Problems w/ Anesthesia Additional Past Anesthesia/Blood Transfusion Reaction / Comment(s): takes a long time to wake up and become oriented Past Psychological History: No Psychological Hx Reported Smoking Status: Former smoker Past Alcohol Use History: Occasional Past Drug Use History: None Reported Plan - Discharge Summary Discharge Rx Participant: Yes New Discharge Prescriptions: New Metoprolol Succinate (ER) [Toprol XL] 50 mg PO DAILY #90 tab Apixaban [Eliquis] 2.5 mg PO BID tab Furosemide [Lasix] 20 mg PO DAILY@1400 #30 tab Continue Multivitamins, Thera [Multivitamin (formulary)] 1 tab PO DAILY ALPRAZolam [Xanax] 0.125 mg PO HS Albuterol Inhaler [Ventolin Hfa Inhaler] 2 puff INHALATION RT-QID PRN PRN Reason: Shortness Of Breath Spironolactone 25 mg PO DAILY Fluticasone/Umeclidin/Vilanter [Trelegy Ellipta 200-62.5-25] 1 puff INHALATION RT-DAILY Vitamin B-12(Unknown Dose) 1 tab PO DAILY Docusate [Colace] 100 mg PO HS@1700 Magnesium Oxide [Magox 400] 400 mg PO HS@1700 Discontinued amLODIPine [Norvasc] 5 mg PO HS@1700 Losartan Potassium 50 mg PO DAILY Discharge Medication List ALPRAZolam [Xanax] 0.125 mg PO HS 10/31/19 [History] Albuterol Inhaler [Ventolin Hfa Inhaler] 2 puff INHALATION RT-QID PRN 10/31/19 [History] Multivitamins, Thera [Multivitamin (formulary)] 1 tab PO DAILY 10/31/19 [History] Spironolactone 25 mg PO DAILY 10/31/19 [History] Docusate [Colace] 100 mg PO HS@1700 11/20/23 [History] Fluticasone/Umeclidin/Vilanter [Trelegy Ellipta 200-62.5-25] 1 puff INHALATION RT-DAILY 11/20/23 [History] Magnesium Oxide [Magox 400] 400 mg PO HS@1700 11/20/23 [History] Vitamin B-12(Unknown Dose) 1 tab PO DAILY 11/20/23 [History] Apixaban [Eliquis] 2.5 mg PO BID tab 11/21/23 [Rx] Metoprolol Succinate (ER) [Toprol XL] 50 mg PO DAILY #90 tab 11/21/23 [Rx] Furosemide [Lasix] 20 mg PO DAILY@1400 #30 tab 11/22/23 [Rx] Follow up Appointment(s)/Referral(s): Atif Wood MD [Medical Doctor] - 1 Week Aldo Sibley MD [Primary Care Provider] - 1-2 days Patient Instructions/Handouts: A-fib (Atrial Fibrillation) (DC), Safe Use of Anticoagulants (DC) Discharge Disposition: HOME SELF-CARE
== END 2023-11-22 14:54 | disposition home or self-care (01) | DRG 308 ==
LOC: EC 20:02 → 3SCARD 11-20 00:09
PROVIDERS: ADMIT Hospitalist; ATTEND Hospitalist
DX: I48.0 Paroxysmal atrial fibrillation (principal); I50.33 Acute on chronic diastolic (congestive) heart failure; J96.11 Chronic respiratory failure with hypoxia; E04.1 Nontoxic single thyroid nodule; E78.5 Hyperlipidemia, unspecified; I11.0 Hypertensive heart disease with heart failure; J44.9 Chronic obstructive pulmonary disease, unspecified; K43.5 Parastomal hernia without obstruction or gangrene; I45.10 Unspecified right bundle-branch block; H91.90 Unspecified hearing loss, unspecified ear; Z79.51 Long term (current) use of inhaled steroids; Z79.899 Other long term (current) drug therapy; Z85.41 Personal history of malignant neoplasm of cervix uteri; Z85.828 Personal history of other malignant neoplasm of skin; Z86.79 Personal history of other diseases of the circulatory system; Z87.891 Personal history of nicotine dependence; Z93.3 Colostomy status; Z99.81 Dependence on supplemental oxygen; Z88.8 Allergy status to other drugs, medicaments and biological substances; Z79.01 Long term (current) use of anticoagulants
CPT/HCPCS: 36415; 71046; 80048; 80053; 80061; 83735; 83880; 84443; 84484; 85025; 85610; 85730; 93005; 93306; 94640; 94760; 96365; 96366; 96372; 99285

== ENCOUNTER → 2023-12-10 | Outpatient (CLI) | payer BC, MEDICARE ==
[2023-12-10 15:24] LABS: HGB 15.5 g/dL (12.0-15.0); MCH 31.6 pg (27.0-32.0); MCHC 33.7 g/dL (32.0-37.0); MCV 93.9 FL (80.0-97.0); Mean Platelet Volume 9.8 FL (9.5-12.2); NRBC Per 100 WBC 0 X 10*3/uL (0.00-0.01); Platelet Count 287 X 10*3/uL (140-440); RDW 13.2 % (11.5-14.5); WBC 13.64 X 10*3/uL (4.50-10.00)
[2023-12-10 15:34] LABS: ALT 20 U/L (8-44); AST 28 U/L (13-35); Albumin 4.5 g/dL (3.8-4.9); Albumin/Globulin Ratio 1.36 Ratio (1.60-3.17); Alkaline Phosphatase 207 U/L (41-126); BUN/Creat Ratio 17.67 Ratio (12.00-20.00); Blood Urea Nitrogen 21.2 mg/dL (9.0-27.0); Calcium 10.6 mg/dL (8.7-10.3); Carbon Dioxide 20.7 mmol/L (21.6-31.8); Chloride 99 mmol/L (96-109); Globulin 3.3 g/dL (1.6-3.3); Glucose 98 mg/dL (70-110); Phosphorus 4.3 mg/dL (2.4-5.1); Potassium 4.7 mmol/L (3.5-5.5); Sodium 137 mmol/L (135-145); Total Bilirubin 0.8 mg/dL (0.3-1.2); Total Protein 7.8 g/dL (6.2-8.2)
[2023-12-10 15:36] LABS: NT-Pro-B-Type Natriuretic Pept 2358 pg/mL (0-450)
== END | disposition home or self-care (01) ==
LOC: LABWHC1 11:09
PROVIDERS: ATTEND Student in an Organized Health Care Education/Training Program
DX: E78.5 Hyperlipidemia, unspecified (principal); E11.22 Type 2 diabetes mellitus with diabetic chronic kidney disease; N18.9 Chronic kidney disease, unspecified; I50.9 Heart failure, unspecified
CPT/HCPCS: 36415; 80053; 83036; 83735; 83880; 84100; 85027

== ENCOUNTER 2024-02-27 18:47 | Observation (INO) | payer MEDICARE, BC ==
--- NOTE | 2024-02-27 19:29 | ED ---
SOB HPI - General Chief Complaint: Shortness of Breath Stated Complaint: SOB Time Seen by Provider: 02/27/24 19:00 Source: patient, EMS Mode of arrival: EMS Limitations: no limitations - History of Present Illness Initial Comments: This patient is an 88-year-old woman who presents to have evaluation for shortness of breath. The patient does have history of congestive heart failure and some underlying COPD, and did note that she stopped taking her Lasix because it was causing the output from her ostomy to be harder than usual and she was having abdominal pain, feeling constipated. The patient notes that after she stopped the Lasix she then took some lactulose and did pass stool through the ostomy. MD Complaint: shortness of breath -: days(s) Severity scale (1-10): 0 Consistency: constant Improves With: upright position Worsens With: lying flat Known History Of: congestive heart failure Associated Symptoms: denies other symptoms Treatments Prior to Arrival: none - Related Data Home Oxygen Therapy: No Home Medications Medication Instructions Recorded Confirmed ALPRAZolam [Xanax] 0.125 mg PO HS 10/31/19 02/27/24 Albuterol Inhaler [Ventolin Hfa 2 puff INHALATION RT-QID PRN 10/31/19 02/27/24 Inhaler] Multivitamins, Thera [Multivitamin 1 tab PO DAILY 10/31/19 02/27/24 (formulary)] Spironolactone 25 mg PO DAILY 10/31/19 02/27/24 Docusate [Colace] 100 mg PO DAILY@1700 11/20/23 02/27/24 Fluticasone/Umeclidin/Vilanter 1 puff INHALATION RT-DAILY 11/20/23 02/27/24 [Trelegy Ellipta 200-62.5-25] Magnesium Oxide [Magox 400] 400 mg PO DAILY@1700 11/20/23 02/27/24 Cyanocobalamin (Vitamin B-12) 1,000 mcg PO DAILY 02/27/24 02/27/24 [Vitamin B-12] Previous Rx's Medication Instructions Recorded Apixaban [Eliquis] 2.5 mg PO BID tab 11/21/23 Metoprolol Succinate (ER) [Toprol 50 mg PO DAILY #90 tab 11/21/23 XL] Furosemide [Lasix] 40 mg PO DAILY #30 tab 03/01/24 Allergies Allergy/AdvReac Type Severity Reaction Status Date / Time nitrofurantoin Allergy Unknown Verified 02/27/24 20:28 [From Macrobid] Mppjvpo-PTR-DmD Reductase Allergy Unknown Verified 02/27/24 20:28 Inhibitor [Ygqmbzt-Flx-Vdq Reductase Inhibitor] cortisone AdvReac Unknown Verified 02/27/24 20:28 Review of Systems ROS Statement: Those systems with pertinent positive or pertinent negative responses have been documented in the HPI. ROS Other: All systems not noted in ROS Statement are negative. Constitutional: Denies: fever, chills Respiratory: Reports: dyspnea. Denies: cough, wheezes, hemoptysis Cardiovascular: Reports: orthopnea. Denies: chest pain, palpitations, edema, syncope Gastrointestinal: Reports: abdominal pain, constipation. 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; CERVICAL CANCER History of Any Multi-Drug Resistant Organisms: None Reported Past Surgical History: Appendectomy, Cholecystectomy, Hysterectomy Additional Past Surgical History / Comment(s): left upper lobe lung removal, subarachnoid hemmorrhage, AAA repair Past Anesthesia/Blood Transfusion Reactions: Previous Problems w/ Anesthesia Additional Past Anesthesia/Blood Transfusion Reaction / Comment(s): takes a long time to wake up and become oriented Past Psychological History: No Psychological Hx Reported Smoking Status: Former smoker Past Alcohol Use History: Occasional Past Drug Use History: None Reported General Exam Limitations: no limitations General appearance: alert, in no apparent distress Head exam: Present: atraumatic, normocephalic Eye exam: Present: normal appearance. Absent: scleral icterus, conjunctival injection ENT exam: Present: normal oropharynx Neck exam: Present: normal inspection, full ROM Respiratory exam: Present: rales (Bilateral bases). Absent: respiratory distress, wheezes, rhonchi, stridor, accessory muscle use Cardiovascular Exam: Present: regular rate, normal rhythm, normal heart sounds. Absent: systolic murmur, diastolic murmur, rubs, gallop GI/Abdominal exam: Present: soft, other (Patient has ostomy in the left lower quadrant.). Absent: distended, tenderness, guarding, rebound, rigid, mass Extremities exam: Present: normal inspection, normal capillary refill. Absent: pedal edema, calf tenderness Back exam: Present: normal inspection. Absent: CVA tenderness (R), CVA tenderness (L) Neurological exam: Present: alert Skin exam: Present: warm, dry, intact, normal color. Absent: rash Course Vital Signs 02/27/24 02/27/24 02/27/24 18:50 20:09 20:12 Temperature 97.8 F Pulse Rate 70 67 Respiratory 18 19 22 Rate Blood Pressure 186/106 192/89 O2 Sat by Pulse 98 96 Oximetry 02/27/24 02/27/24 02/27/24 21:00 22:00 23:56 Temperature Pulse Rate 64 63 Respiratory 17 16 Rate Blood Pressure 190/98 180/91 180/99 O2 Sat by Pulse 100 99 99 Oximetry 02/28/24 02/28/24 00:30 01:30 Temperature Pulse Rate 60 66 Respiratory 12 15 Rate Blood Pressure 142/77 152/85 O2 Sat by Pulse 98 97 Oximetry Medical Decision Making - Medical Decision Making The patient had chest x-ray that I interpreted as negative for acute infiltrate, negative for pneumothorax. Does appear to have some vascular congestion consistent with CHF exacerbation Was pt. sent in by a medical professional or institution ([facility], [employer], urgent care, hospital, or usp...) When possible be specific @ -[No] Did you speak to anyone other than the patient for history (EMS, parent, family, police, friend...)? What history was obtained from this source @ -[No] Did you review nursing and triage notes (agree or disagree)? Why? @ -[I reviewed and agree with nursing and triage notes] Were old charts reviewed (outside hosp., previous admission, EMS record, old EKG, old radiological studies, urgent care reports/EKG's, usp records)? Report findings @ -[No old charts were reviewed] Differential Diagnosis (chest pain, altered mental status, abdominal pain women, abdominal pain men, vaginal bleeding, weakness, fever, dyspnea, syncope, hea dache, dizziness, GI bleed, back pain, seizure, CVA, palpatations, mental health, musculoskeletal)? @ -[Differential Dyspnea: Coronary syndrome, arrhythmia, tamponade, asthma, COPD, pulmonary embolism, pneumonia, pneumothorax, pulmonary effusion, anaphylaxis, diabetic ketoacidosis, flailed chest, pulmonary contusion, diaphragmatic rupture, anemia, neuromuscular, this is not meant to be an all-inclusive list. EKG interpreted by me (3pts min.). @ -[I interpreted as above X-rays interpreted by me (1pt min.). @ -[I interpreted as above CT interpreted by me (1pt min.). @ -[None done] U/S interpreted by me (1pt. min.). @ -[None done] What testing was considered but not performed or refused? (CT, X-rays, U/S, labs)? Why? @ -[None] What meds were considered but not given or refused? Why? @ -[None] Did you discuss the management of the patient with other professionals (professionals i.e. , PA, BOOM WORKER, lab, RT, psych nurse, social media senior associate, operations vice president, teacher, investigation officer, caser shoe parts)? Give summary @ -[Discussed with the admitting physician and treatment recommendations are incorporated Was smoking cessation discussed for >3mins.? @ -[No] Was critical care preformed (if so, how long)? @ -[No] Were there social determinants of health that impacted care today? How? (Homelessness, low income, unemployed, alcoholism, drug addiction, transportation, low edu. Level, literacy, decrease access to med. care, snf, rehab)? @ -[No] Was there de-escalation of care discussed even if they declined (Discuss DNR or withdrawal of care, Hospice)? DNR status @ -[No] What co-morbidities impacted this encounter? (DM, HTN, Smoking, COPD, CAD, Cancer, CVA, ARF, Chemo, Hep., AIDS, mental health diagnosis, sleep apnea, morbid obesity)? @ -[COPD, hypertension, congestive heart failure Was patient admitted / discharged? Hospital course, mention meds given and route, prescriptions, significant lab abnormalities, going to OR and other pertinent info. @ -[Patient is an 88-year-old woman here with dyspnea that appears multifactorial. Will admit patient to have further treatment of congestive heart failure and COPD Undiagnosed new problem with uncertain prognosis? @ -[No] Drug Therapy requiring intensive monitoring for toxicity (Heparin, Nitro, Insulin, Cardizem)? @ -[No] Were any procedures done? @ -[No] Diagnosis/symptom? @ -[Acute dyspnea Acute on chronic congestive heart failure Acute on chronic COPD exacerbation Acute, or Chronic, or Acute on Chronic? @ -[default] Uncomplicated (without systemic symptoms) or Complicated (systemic symptoms)? @ -[Complicated by dyspnea Side effects of treatment? @ -[No] Exacerbation, Progression, or Severe Exacerbation? @ -[No] Poses a threat to life or bodily function? How? (Chest pain, [place], [place], pneumonia, PE, COPD, DKA, ARF, appy, cholecystitis, CVA, Diverticulitis, Homicidal, Suicidal, threat to staff... and all critical care pts) @ -Yes there is risk of progression to respiratory failure - Lab Data Result diagrams: 02/29/24 05:48 03/01/24 08:12 Lab Results 02/27/24 02/27/24 02/27/24 Range/Units 19:37 19:37 19:37 WBC 11.0 H (3.8-10.6) k/uL RBC 4.46 (3.80-5.40) m/uL Hgb 14.2 (11.4-16.0) gm/dL Hct 43.3 (34.0-46.0) % MCV 96.9 (80.0-100.0) fL MCH 31.7 (25.0-35.0) pg MCHC 32.7 (31.0-37.0) g/dL RDW 13.8 (11.5-15.5) % Plt Count 326 (150-450) k/uL MPV 7.2 Neutrophils % 66 % Lymphocytes % 24 % Monocytes % 5 % Eosinophils % 2 % Basophils % 0 % Neutrophils # 7.3 (1.3-7.7) k/uL Lymphocytes # 2.7 (1.0-4.8) k/uL Monocytes # 0.5 (0-1.0) k/uL Eosinophils # 0.2 (0-0.7) k/uL Basophils # 0.0 (0-0.2) k/uL PT 10.8 (10.0-12.5) sec INR 1.0 (<1.2) APTT 24.5 (22.0-30.0) sec Sodium 134 L (137-145) mmol/L Potassium 5.1 (3.5-5.1) mmol/L Chloride 101 (98-107) mmol/L Carbon Dioxide 25 (22-30) mmol/L Anion Gap 8 mmol/L BUN 18 H (7-17) mg/dL Creatinine 0.89 (0.52-1.04) mg/dL Est GFR (CKD-EPI)AfAm 67 (>60 ml/min/1.73 sqM) Est GFR (CKD-EPI)NonAf 58 (>60 ml/min/1.73 sqM) Glucose 97 (74-99) mg/dL Plasma Lactic Acid Gilbert (0.7-2.0) mmol/L Calcium 10.4 H (8.4-10.2) mg/dL Magnesium 1.8 (1.6-2.3) mg/dL Total Bilirubin 2.1 H (0.2-1.3) mg/dL AST 63 H (14-36) U/L ALT 25 (4-34) U/L Alkaline Phosphatase 130 H (38-126) U/L Troponin I (0.000-0.034) ng/mL NT-Pro-B Natriuret Pep 3370 pg/mL Total Protein 7.9 (6.3-8.2) g/dL Albumin 4.5 (3.5-5.0) g/dL Urine Color Urine Appearance (Clear) Urine pH (5.0-8.0) Ur Specific [place] (1.001-1.035) Urine Protein (Negative) Urine Glucose (UA) (Negative) Urine Ketones (Negative) Urine Blood (Negative) Urine Nitrite (Negative) Urine Bilirubin (Negative) Urine Urobilinogen (<2.0) mg/dL Ur Leukocyte Esterase (Negative) Urine WBC (0-5) /hpf Influenza Type A (PCR) (Not Detectd) Influenza Type B (PCR) (Not Detectd) RSV (PCR) (Not Detectd) SARS-CoV-2 (PCR) (Not Detectd) 02/27/24 02/27/24 02/27/24 Range/Units 19:37 19:37 20:15 WBC (3.8-10.6) k/uL RBC (3.80-5.40) m/uL Hgb (11.4-16.0) gm/dL Hct (34.0-46.0) % MCV (80.0-100.0) fL MCH (25.0-35.0) pg MCHC (31.0-37.0) g/dL RDW (11.5-15.5) % Plt Count (150-450) k/uL MPV Neutrophils % % Lymphocytes % % Monocytes % % Eosinophils % % Basophils % % Neutrophils # (1.3-7.7) k/uL Lymphocytes # (1.0-4.8) k/uL Monocytes # (0-1.0) k/uL Eosinophils # (0-0.7) k/uL Basophils # (0-0.2) k/uL PT (10.0-12.5) sec INR (<1.2) APTT (22.0-30.0) sec Sodium (137-145) mmol/L Potassium (3.5-5.1) mmol/L Chloride (98-107) mmol/L Carbon Dioxide (22-30) mmol/L Anion Gap mmol/L BUN (7-17) mg/dL Creatinine (0.52-1.04) mg/dL Est GFR (CKD-EPI)AfAm (>60 ml/min/1.73 sqM) Est GFR (CKD-EPI)NonAf (>60 ml/min/1.73 sqM) Glucose (74-99) mg/dL Plasma Lactic Acid Gilbert 1.2 (0.7-2.0) mmol/L Calcium (8.4-10.2) mg/dL Magnesium (1.6-2.3) mg/dL Total Bilirubin (0.2-1.3) mg/dL AST (14-36) U/L ALT (4-34) U/L Alkaline Phosphatase (38-126) U/L Troponin I 0.026 (0.000-0.034) ng/mL NT-Pro-B Natriuret Pep pg/mL Total Protein (6.3-8.2) g/dL Albumin (3.5-5.0) g/dL Urine Color Colorless Urine Appearance Clear (Clear) Urine pH 7.0 (5.0-8.0) Ur Specific [place] 1.003 (1.001-1.035) Urine Protein Negative (Negative) Urine Glucose (UA) Negative (Negative) Urine Ketones Negative (Negative) Urine Blood Negative (Negative) Urine Nitrite Negative (Negative) Urine Bilirubin Negative (Negative) Urine Urobilinogen <2.0 (<2.0) mg/dL Ur Leukocyte Esterase Trace H (Negative) Urine WBC 4 (0-5) /hpf Influenza Type A (PCR) (Not Detectd) Influenza Type B (PCR) (Not Detectd) RSV (PCR) (Not Detectd) SARS-CoV-2 (PCR) (Not Detectd) 02/27/24 Range/Units 22:56 WBC (3.8-10.6) k/uL RBC (3.80-5.40) m/uL Hgb (11.4-16.0) gm/dL Hct (34.0-46.0) % MCV (80.0-100.0) fL MCH (25.0-35.0) pg MCHC (31.0-37.0) g/dL RDW (11.5-15.5) % Plt Count (150-450) k/uL MPV Neutrophils % % Lymphocytes % % Monocytes % % Eosinophils % % Basophils % % Neutrophils # (1.3-7.7) k/uL Lymphocytes # (1.0-4.8) k/uL Monocytes # (0-1.0) k/uL Eosinophils # (0-0.7) k/uL Basophils # (0-0.2) k/uL PT (10.0-12.5) sec INR (<1.2) APTT (22.0-30.0) sec Sodium (137-145) mmol/L Potassium (3.5-5.1) mmol/L Chloride (98-107) mmol/L Carbon Dioxide (22-30) mmol/L Anion Gap mmol/L BUN (7-17) mg/dL Creatinine (0.52-1.04) mg/dL Est GFR (CKD-EPI)AfAm (>60 ml/min/1.73 sqM) Est GFR (CKD-EPI)NonAf (>60 ml/min/1.73 sqM) Glucose (74-99) mg/dL Plasma Lactic Acid Gilbert (0.7-2.0) mmol/L Calcium (8.4-10.2) mg/dL Magnesium (1.6-2.3) mg/dL Total Bilirubin (0.2-1.3) mg/dL AST (14-36) U/L ALT (4-34) U/L Alkaline Phosphatase (38-126) U/L Troponin I (0.000-0.034) ng/mL NT-Pro-B Natriuret Pep pg/mL Total Protein (6.3-8.2) g/dL Albumin (3.5-5.0) g/dL Urine Color Urine Appearance (Clear) Urine pH (5.0-8.0) Ur Specific [place] (1.001-1.035) Urine Protein (Negative) Urine Glucose (UA) (Negative) Urine Ketones (Negative) Urine Blood (Negative) Urine Nitrite (Negative) Urine Bilirubin (Negative) Urine Urobilinogen (<2.0) mg/dL Ur Leukocyte Esterase (Negative) Urine WBC (0-5) /hpf Influenza Type A (PCR) Not Detected (Not Detectd) Influenza Type B (PCR) Not Detected (Not Detectd) RSV (PCR) Not Detected (Not Detectd) SARS-CoV-2 (PCR) Not Detected (Not Detectd) - EKG Data -: EKG Interpreted by [place] EKG shows normal: sinus rhythm (With occasional premature supraventricular contraction. Rate 68 bpm), axis (Right axis deviation), intervals (MO interval 186 ms, QTc 427 ms, both normal. QRS duration 134 ms, prolonged consistent with right bundle branch block.), QRS complexes (Right bundle branch block pattern.) Disposition Clinical Impression: Congestive heart failure, COPD (chronic obstructive pulmonary disease) Disposition: ADMITTED IP TO THIS HOSP Condition: Fair Is patient prescribed a controlled substance at d/c from ED?: No
[2024-02-27 20:35] LABS: Basophils % (A) 0 %; Eosinophils # (A) 0.2 k/uL (0-0.7); Eosinophils % (A) 2 %; HCT 43.3 % (34.0-46.0); HGB 14.2 gm/dL (11.4-16.0); Lymphocytes # (A) 2.7 k/uL (1.0-4.8); Lymphocytes % (A) 24 %; MCH 31.7 pg (25.0-35.0); MCHC 32.7 g/dL (31.0-37.0); MCV 96.9 fL (80.0-100.0); Mean Platelet Volume 7.2; Monocytes # (A) 0.5 k/uL (0-1.0); Monocytes % (A) 5 %; Neutrophils # (A) 7.3 k/uL (1.3-7.7); Neutrophils % (A) 66 %; Platelet Count 326 k/uL (150-450); RBC 4.46 m/uL (3.80-5.40); RDW 13.8 % (11.5-15.5)
[2024-02-27 20:42] LABS: Appearance,Urine Clear (Clear); Bilirubin,Urine Negative (Negative); Blood,Urine Negative (Negative); Color,Urine Colorless; Glucose,Urine (UA) Negative (Negative); Ketones,Urine Negative (Negative); Leukocyte Esterase,Urine Trace (Negative); Nitrite,Urine Negative (Negative); Protein,Urine Negative (Negative); Specific Gravity,Urine 1.003 (1.001-1.035); Urobilinogen,Urine <2.0 mg/dL (<2.0); WBC,Urine 4 /hpf (0-5)
[2024-02-27 20:54] LABS: ALT 25 U/L (4-34); African American GFR (CKD) 67 (>60 ml/min/1.73 sqM); Anion Gap 8 mmol/L; Blood Urea Nitrogen 18 mg/dL (7-17); Calcium 10.4 mg/dL (8.4-10.2); Carbon Dioxide 25 mmol/L (22-30); Chloride 101 mmol/L (98-107); Glucose 97 mg/dL (74-99); Non-African American GFR(CKD) 58 (>60 ml/min/1.73 sqM); Sodium 134 mmol/L (137-145); Total Bilirubin 2.1 mg/dL (0.2-1.3); Total Protein 7.9 g/dL (6.3-8.2)
[2024-02-27 21:01] LABS: NT-Pro-B-Type Natriuretic Pept 3370 pg/mL
[2024-02-27 21:02] LABS: Partial Thromboplastin Time 24.5 sec (22.0-30.0); Prothrombin Time 10.8 sec (10.0-12.5)
[2024-02-27 21:06] LABS: AST 63 U/L (14-36); Albumin 4.5 g/dL (3.5-5.0); Alkaline Phosphatase 130 U/L (38-126); Magnesium 1.8 mg/dL (1.6-2.3); Potassium 5.1 mmol/L (3.5-5.1)
--- NOTE | 2024-02-27 21:27 | XR ---
EXAMINATION TYPE: XR chest 2V DATE OF EXAM: 02/27/2024 7:52 PM CLINICAL INDICATION:Female, 88 years old with history of difficulty breathing; [facility] COMPARISON: 11/19/2023, 10/09/2023 TECHNIQUE: XR chest 2V. Frontal and lateral views of the chest.. FINDINGS: Lines/Tubes/Devices: EKG leads an other structures overlie the chest. No indwelling lines are seen. Heart/mediastinum: Heart appears mildly enlarged. Mediastinum appears normal. Pulmonary vascularity: Pulmonary vascular congestion. Increased interstitial markings can be seen wit h edema or pneumonitis. An element of chronic change is possible. Lungs/Pleura: There is no evidence of pleural effusion, focal consolidation, or pneumothorax. Musculoskeletal: No acute osseous abnormality demonstrated in the limits of the exam. Other findings: None. IMPRESSION: Mild cardiomegaly and pulmonary vascular congestion. Correlate with BNP for CHF. [facility], , 02/27/2024 9:25 PM
[2024-02-28] MEDS ORDERED: hydrALAZINE HCL 20 MG/ML 1 ML VIAL IVP PRN (01:10)
[2024-02-28] MEDS: FUROSEMIDE 10 MG/ML 4 ML VIAL IV SCH (02:41)
[2024-02-28] MEDS: NITROGLYCERIN OINT 1 INCH/GM PACKET TOPICAL SCH (02:42)
[2024-02-28] MEDS: ALPRAZolam 0.25 MG TAB PO SCH (02:42)
[2024-02-28] MEDS: IPRATROPIUM 0.5 MG/2.5 ML NEBU INHALATION SCH (08:30)
[2024-02-28] MEDS: SYMBICORT 160-4.5 MCG INHALER INHALATION SCH (08:30)
[2024-02-28] MEDS: CYANOCOBALAMIN 500 MCG TAB PO SCH (08:48)
[2024-02-28] MEDS: MULTIVITAMINS, THERA 1 EACH TAB PO SCH (08:48)
[2024-02-28] MEDS: METOPROLOL SUCCINATE (ER) 50 MG TAB.ER.24H PO SCH (08:48)
[2024-02-28] MEDS: SPIRONOLACTONE 25 MG TAB PO SCH (08:48)
[2024-02-28] MEDS: APIXABAN 2.5 MG TABLET PO SCH (08:49)
[2024-02-28 11:22] VITALS: BMI 26.9
--- NOTE | 2024-02-28 14:10 | P.CRDCN ---
History of Present Illness Consult date: 02/28/24 History of present illness: HISTORY OF PRESENTING ILLNESS 88-year-old female with PMH of difficulty in hearing, hypertension, dyslipidemia, COPD, AAA repair, smoker, COPD on home oxygen, paroxysmal atrial fibrillation. Last she was hospitalized in November 2023 where she was noticed to be in A-fib RVR and for this she was treated with rate control strategy. This time she presented to the hospital because of worsening shortness of breath. Patient reports that even while using nasal cannula oxygen her oxygen saturation was running low and because of increased work of breathing she presented to the hospital. She denies having any active chest pain chest pressure or palpitations. She denies any losing consciousness. She does report that she has stopped using her Lasix because it was making the output from her ostomy to be a bit more harder than usual and she was having abdominal pain and feeling constipated. Admission ECG showed sinus rhythm with PACs, right bundle branch block. Chest x-ray showed mild pulmonary congestion Labs shows hemoglobin 14.2, WBC 11, INR 1, sodium 134, potassium 5.1, creatinine 0.8, magnesium 1.8, troponin 0.02, negative, NT proBNP 3300 REVIEW OF SYSTEMS 14 point review of system is negative except what is mentioned above in HPI. PHYSICAL EXAMINATION Vital signs reviewed. Head: Normocephalic. Eyes: Sclerae nonicteric. Neck: Brisk carotid upstroke, no jugular venous distention. Lungs: Clear to auscultation. Heart: Regular rate and rhythm, S1-S2, no S3, no murmur or rub. Abdomen: Soft nontender, positive bowel sounds. Extremities: No edema, intact distal pulses. Neuro: Alert, oritented, no focal deficits. Detailed neuro exam was not performed. ASSESSMENT Mild HFpEF exacerbation likely due to medication noncompliance Mild COPD exacerbation Acute hypoxic respiratory failure Paroxysmal atrial fibrillation, currently in rate controlled Hypertension Dyslipidemia Status post colostomy Echocardiogram November 2023, EF 55%, moderate mitral regurgitation, mild to moderate aortic stenosis, mean gradient 17 mmHg, mild tricuspid regurgitation, PLAN At home she is on Aldactone 25 mg, Lasix 20 mg daily, Eliquis 2.5 mL twice daily, metoprolol succinate 50 mg daily Continue Eliquis 2.5 mg twice daily, metoprolol succinate 50 mg daily, Aldactone 25 mg daily. Continue Lasix 40 mg daily today. From tomorrow transition to p.o. Lasix 20 mg daily Obtain procalcitonin level to rule out concerns of pneumonia Atif Wood MD, FACC, RPVI Thank you for allowing [facility] to participate in this patient's care. Feel free to reach out in case of any followup questions. 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; CERVICAL CANCER History of Any Multi-Drug Resistant Organisms: None Reported Past Surgical History: Appendectomy, Cholecystectomy, Hysterectomy Additional Past Surgical History / Comment(s): left upper lobe lung removal, subarachnoid hemmorrhage, AAA repair Past Anesthesia/Blood Transfusion Reactions: Previous Problems w/ Anesthesia Additional Past Anesthesia/Blood Transfusion Reaction / Comment(s): takes a long time to wake up and become oriented Past Psychological History: No Psychological Hx Reported Smoking Status: Former smoker Past Alcohol Use History: Occasional Past Drug Use History: None Reported Medications and Allergies Home Medications Medication Instructions Recorded Confirmed Type ALPRAZolam [Xanax] 0.125 mg PO HS 10/31/19 02/27/24 History Albuterol Inhaler [Ventolin Hfa 2 puff INHALATION RT-QID PRN 10/31/19 02/27/24 History Inhaler] Multivitamins, Thera [Multivitamin 1 tab PO DAILY 10/31/19 02/27/24 History (formulary)] Spironolactone 25 mg PO DAILY 10/31/19 02/27/24 History Docusate [Colace] 100 mg PO DAILY@1700 11/20/23 02/27/24 History Fluticasone/Umeclidin/Vilanter 1 puff INHALATION RT-DAILY 11/20/23 02/27/24 History [Trelegy Ellipta 200-62.5-25] Magnesium Oxide [Magox 400] 400 mg PO DAILY@1700 11/20/23 02/27/24 History Apixaban [Eliquis] 2.5 mg PO BID tab 11/21/23 02/27/24 Rx Metoprolol Succinate (ER) [Toprol 50 mg PO DAILY #90 tab 11/21/23 02/27/24 Rx XL] Furosemide [Lasix] 20 mg PO DAILY@1400 #30 tab 11/22/23 02/27/24 Rx Cyanocobalamin (Vitamin B-12) 1,000 mcg PO DAILY 02/27/24 02/27/24 History [Vitamin B-12] Allergies Allergy/AdvReac Type Severity Reaction Status Date / Time nitrofurantoin Allergy Unknown Verified 02/27/24 20:28 [From Macrobid] Gkqppua-BER-CcO Reductase Allergy Unknown Verified 02/27/24 20:28 Inhibitor [Ntzdfra-Cep-Lrl Reductase Inhibitor] cortisone AdvReac Unknown Verified 02/27/24 20:28 Physical Exam Vitals: Vital Signs Temp Pulse Pulse Pulse Resp BP BP 02/28/24 12:50 97.7 F 62 20 134/67 02/28/24 08:45 97.9 F 78 20 112/68 02/28/24 08:30 02/28/24 04:00 97.8 F 59 L 19 138/72 02/28/24 02:06 97.7 F 65 21 180/94 02/28/24 02:00 67 20 02/28/24 01:30 66 15 152/85 02/28/24 00:30 60 12 142/77 02/27/24 23:56 180/99 02/27/24 22:00 63 16 180/91 02/27/24 21:00 64 17 190/98 02/27/24 20:12 22 02/27/24 20:09 67 19 192/89 02/27/24 18:50 97.8 F 70 18 186/106 Pulse Ox 02/28/24 12:50 96 02/28/24 08:45 93 L 02/28/24 08:30 97 02/28/24 04:00 99 02/28/24 02:06 93 L 02/28/24 02:00 02/28/24 01:30 97 02/28/24 00:30 98 02/27/24 23:56 99 02/27/24 22:00 99 02/27/24 21:00 100 02/27/24 20:12 02/27/24 20:09 96 02/27/24 18:50 98 Intake and Output 02/27/24 02/28/24 02/28/24 22:59 06:59 14:59 Intake Total 250 590 Output Total 1100 Balance -850 590 Intake: IV 10 10 Invasive Line 1 10 10 Oral 240 580 Output: Urine 1100 Other: Voiding Method Toilet Toilet # Voids 1 Weight 62.596 kg 62.7 kg 62.7 kg Results 02/27/24 19:37 02/27/24 19:37 Cardiac Enzymes 02/27/24 02/27/24 02/28/24 Range/Units 19:37 19:37 01:27 AST 63 H (14-36) U/L Troponin I 0.026 0.023 (0.000-0.034) ng/mL 02/28/24 Range/Units 04:51 AST (14-36) U/L Troponin I 0.022 (0.000-0.034) ng/mL Coagulation 02/27/24 Range/Units 19:37 PT 10.8 (10.0-12.5) sec APTT 24.5 (22.0-30.0) sec CBC 02/27/24 Range/Units 19:37 WBC 11.0 H (3.8-10.6) k/uL RBC 4.46 (3.80-5.40) m/uL Hgb 14.2 (11.4-16.0) gm/dL Hct 43.3 (34.0-46.0) % Plt Count 326 (150-450) k/uL Comprehensive Metabolic Panel 02/27/24 Range/Units 19:37 Sodium 134 L (137-145) mmol/L Potassium 5.1 (3.5-5.1) mmol/L Chloride 101 (98-107) mmol/L Carbon Dioxide 25 (22-30) mmol/L BUN 18 H (7-17) mg/dL Creatinine 0.89 (0.52-1.04) mg/dL Glucose 97 (74-99) mg/dL Calcium 10.4 H (8.4-10.2) mg/dL AST 63 H (14-36) U/L ALT 25 (4-34) U/L Alkaline Phosphatase 130 H (38-126) U/L Total Protein 7.9 (6.3-8.2) g/dL Albumin 4.5 (3.5-5.0) g/dL Current Medications Generic Name Dose Route Start Last Admin Trade Name Freq PRN Reason Stop Dose Admin Albuterol Sulfate 2.5 mg 02/28/24 08:13 Albuterol Nebulized 2.5 Mg/3 Ml INHALATION RT-QID PRN Shortness Of Breath Alprazolam 0.125 mg 02/28/24 02:31 02/28/24 02:42 Alprazolam 0.25 Mg Tab PO 0.125 mg HS DEBRA Administration Apixaban 2.5 mg 02/28/24 09:00 02/28/24 08:49 Apixaban 2.5 Mg Tablet PO 2.5 mg BID DEBRA Administration Protocol Budesonide/Formoterol Fumarate 2 puff 02/28/24 08:00 02/28/24 08:30 Symbicort 160-4.5 Mcg Inhaler INHALATION 2 puff RT-BID DEBRA Administration Cyanocobalamin 1,000 mcg 02/28/24 09:00 02/28/24 08:48 Cyanocobalamin 500 Mcg Tab PO 1,000 mcg DAILY DEBRA Administration Docusate Sodium 100 mg 02/28/24 17:00 Docusate 100 Mg Cap PO DAILY@1700 [facility] Furosemide 40 mg 02/28/24 00:45 02/28/24 12:55 Furosemide 10 Mg/Ml 4 Ml Vial IV 40 mg Q12H DEBRA Administration Hydralazine HCl 10 mg 02/28/24 01:10 Hydralazine Hcl 20 Mg/Ml 1 Ml Vial IVP Q6HR PRN Blood Pressure - High Ipratropium [place] 0.5 mg 02/28/24 08:00 02/28/24 11:36 Ipratropium 0.5 Mg/2.5 Ml Nebu INHALATION Not Given RT-QID [facility] Magnesium Oxide 400 mg 02/28/24 17:00 Magnesium Oxide 400 Mg Tab PO DAILY@1700 [facility] Metoprolol Succinate 50 mg 02/28/24 09:00 02/28/24 08:48 Metoprolol Succinate (Er) 50 Mg Tab.Er.24h PO 50 mg DAILY DEBRA Administration Multivitamins 1 each 02/28/24 09:00 02/28/24 08:48 Multivitamins, Thera 1 Each Tab PO 1 each DAILY DEBRA Administration Nitroglycerin 1 inch 02/28/24 01:15 02/28/24 12:55 Nitroglycerin Oint 1 Inch/Gm Packet TOPICAL 1 inch Q6HR DEBRA Administration Sodium Chloride 10 ml 02/28/24 09:00 02/28/24 08:49 Sodium Chloride 0.9% Flush 10 Ml Syringe IV 10 ml BID DEBRA Administration Spironolactone 25 mg 02/28/24 09:00 02/28/24 08:48 Spironolactone 25 Mg Tab PO 25 mg DAILY DEBRA Administration Intake and Output 02/27/24 02/28/24 02/28/24 22:59 06:59 14:59 Intake Total 250 590 Output Total 1100 Balance -850 590 Intake: IV 10 10 Invasive Line 1 10 10 Oral 240 580 Output: Urine 1100 Other: Voiding Method Toilet Toilet # Voids 1 Weight 62.596 kg 62.7 kg 62.7 kg Patient Weight 02/29/24 06:59 Weight 62.7 kg 02/27/24 19:37 02/27/24 19:37
--- NOTE | 2024-02-28 15:58 | P.HPIM ---
History of Present Illness History of present illness; 88-year-old female with a past medical history of A- fib (on Eliquis), COPD, HLD, hypertension, left upper lung lobe removal, colostomy without parastomal hernia presents with worsening shortness of breath. Patient reports for the last 2 weeks she has had increased shortness of breath and increased home O2 requirements. Patient reports she stopped her home Lasix dose 2 weeks ago due to issues it was causing with her ostomy. Patient reports while on Lasix the ostomy would not produce as much stool as it normally would and she would also have increased abdominal pain. Initial lab work from the ER was significant for WBC 11, sodium 134, potassium 5.1, calcium 10.4, T. bili 2.1, AST 63, alkaline phosphatase 130, troponin 0.026, BNP 3370, UA insignificant except for trace leukocyte esterase. EKG done in the ER showed heart rate of 68 bpm, no ST segment elevation or depression seen, no T-wave inversions seen. Sinus rhythm with occasional supraventricular premature complexes ER CXR: Mild cardiomegaly and pulmonary vascular congestion. Patient admitted to internal medicine service REVIEW OF SYSTEMS: CONSTITUTIONAL: No fever, no malaise, no fatigue. HEENT: No recent visual problems or hearing problems. Denied any sore throat. CARDIOVASCULAR: No chest pain, orthopnea, PND, no palpitations, no syncope. PULMONARY: Admits to shortness of breath, but no hemoptysis. GASTROINTESTINAL: No diarrhea, no nausea, no vomiting, no abdominal pain. NEUROLOGICAL: No headaches, no weakness, no numbness. HEMATOLOGICAL: Denies any bleeding or petechiae. GENITOURINARY: Denies any burning micturition, frequency, or urgency. MUSCULOSKELETAL/RHEUMATOLOGICAL: Denies any joint pain, swelling, or any muscle pain. ENDOCRINE: Denies any polyuria or polydipsia. The rest of the 14-point review of systems is negative. PHYSICAL EXAMINATION: GENERAL: The patient is alert and oriented x3, not in any acute distress. Well developed, well nourished. HEENT: Pupils are round and equally reacting to light. EOMI. No scleral icterus. No conjunctival pallor. Normocephalic, atraumatic. No pharyngeal erythema. No thyromegaly. CARDIOVASCULAR: S1 and S2 present. No murmurs, rubs, or gallops. PULMONARY: Chest is clear to auscultation b/l, no wheezing or crackles. ABDOMEN: Soft, nontender, nondistended, normoactive bowel sounds. No palpable organomegaly. Ostomy in place, no erythema or excess discharge noted, bag empty during examination. MUSCULOSKELETAL: No joint swelling or deformity. EXTREMITIES: No cyanosis, clubbing, or pedal edema. NEUROLOGICAL: Gross neurological examination did not reveal any focal deficits. SKIN: No rashes. Assessment & Plan: #Mild HFpEF exacerbation likely due to medication noncompliance Patient reports her Lasix was causing constipation and making it difficult for stool to pass through her ostomy and causing abdominal pain, so she stopped taking it. Daily weights, monitor I's and O's Continue Lasix 40 mg IV twice daily, will transition to p.o. Lasix 20 tomorrow (02/28) 1500 cc fluid restriction Continue to monitor #Transaminitis: AST 63 and ALT 25 Continue to monitor Chronic: #Atrial fibrillation with RVR: Continue home Eliquis #Hypertension: Continue home Aldactone 25 mg, metoprolol succinate 50 mg daily #Hyperlipidemia: Continue home medication #COPD: Continue home medication F: None E: None N: Heart healthy diet A: Normally ambulates at home unassisted DVT ppx: Eliquis 2.5 mg p.o. twice daily Dispo: Pending clinical course Tea Garcia MD PGY-1 FM Attestation I have seen and examined this patient with my resident , discussed the same with the resident/LEATHA, and agree with the dictator's assessment and plan as written Dr. Tramaine oquendo Dictation was produced using [employer] dictation software. please excuse any grammatical, word or spelling errors. 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; CERVICAL CANCER History of Any Multi-Drug Resistant Organisms: None Reported Past Surgical History: Appendectomy, Cholecystectomy, Hysterectomy Additional Past Surgical History / Comment(s): left upper lobe lung removal, subarachnoid hemmorrhage, AAA repair Past Anesthesia/Blood Transfusion Reactions: Previous Problems w/ Anesthesia Additional Past Anesthesia/Blood Transfusion Reaction / Comment(s): takes a long time to wake up and become oriented Past Psychological History: No Psychological Hx Reported Smoking Status: Former smoker Past Alcohol Use History: Occasional Past Drug Use History: None Reported Medications and Allergies Home Medications Medication Instructions Recorded Confirmed Type ALPRAZolam [Xanax] 0.125 mg PO HS 10/31/19 02/27/24 History Albuterol Inhaler [Ventolin Hfa 2 puff INHALATION RT-QID PRN 10/31/19 02/27/24 History Inhaler] Multivitamins, Thera [Multivitamin 1 tab PO DAILY 10/31/19 02/27/24 History (formulary)] Spironolactone 25 mg PO DAILY 10/31/19 02/27/24 History Docusate [Colace] 100 mg PO DAILY@1700 11/20/23 02/27/24 History Fluticasone/Umeclidin/Vilanter 1 puff INHALATION RT-DAILY 11/20/23 02/27/24 History [Trelegy Ellipta 200-62.5-25] Magnesium Oxide [Magox 400] 400 mg PO DAILY@1700 11/20/23 02/27/24 History Apixaban [Eliquis] 2.5 mg PO BID tab 11/21/23 02/27/24 Rx Metoprolol Succinate (ER) [Toprol 50 mg PO DAILY #90 tab 11/21/23 02/27/24 Rx XL] Furosemide [Lasix] 20 mg PO DAILY@1400 #30 tab 11/22/23 02/27/24 Rx Cyanocobalamin (Vitamin B-12) 1,000 mcg PO DAILY 02/27/24 02/27/24 History [Vitamin B-12] Allergies Allergy/AdvReac Type Severity Reaction Status Date / Time nitrofurantoin Allergy Unknown Verified 02/27/24 20:28 [From Macrobid] Qnxcmqx-SQE-ZpX Reductase Allergy Unknown Verified 02/27/24 20:28 Inhibitor [Skycili-Znq-Rmp Reductase Inhibitor] cortisone AdvReac Unknown Verified 02/27/24 20:28 Physical Exam Vitals: Vital Signs Temp Pulse Pulse Resp BP BP Pulse Ox 02/28/24 04:00 97.8 F 59 L 19 138/72 99 02/28/24 02:06 97.7 F 65 21 180/94 93 L 02/28/24 02:00 67 20 02/28/24 01:30 66 15 152/85 97 02/28/24 00:30 60 12 142/77 98 02/27/24 23:56 180/99 99 02/27/24 22:00 63 16 180/91 99 02/27/24 21:00 64 17 190/98 100 02/27/24 20:12 22 02/27/24 20:09 67 19 192/89 96 02/27/24 18:50 97.8 F 70 18 186/106 98 Intake and Output 02/27/24 02/28/24 02/28/24 22:59 06:59 14:59 Intake Total 250 Output Total 1100 Balance -850 Intake: IV 10 Invasive Line 1 10 Oral 240 Output: Urine 1100 Other: Voiding Method Toilet # Voids 1 Weight 62.596 kg 62.7 kg Results CBC & Chem 7: 02/29/24 05:48 02/29/24 05:48 Labs: Abnormal Lab Results - Last 24 Hours (Table) 02/27/24 02/27/24 02/27/24 Range/Units 19:37 19:37 20:15 WBC 11.0 H (3.8-10.6) k/uL Sodium 134 L (137-145) mmol/L BUN 18 H (7-17) mg/dL Calcium 10.4 H (8.4-10.2) mg/dL Total Bilirubin 2.1 H (0.2-1.3) mg/dL AST 63 H (14-36) U/L Alkaline Phosphatase 130 H (38-126) U/L Ur Leukocyte Esterase Trace H (Negative) Thrombosis Risk Factor Assmnt - Choose All That Apply Any of the Below Risk Factors Present?: Yes Each Factor Represents 1 point: Abnormal pulmonary function (COPD), Heart failure (<1month) Other Risk Factors: Yes Each Risk Factor Represents 3 Points: Age 75 years or older Thrombosis Risk Factor Assessment Total Risk Factor Score: 5 Thrombosis Risk Factor Assessment Level: High Risk
[2024-02-28] MEDS: DOCUSATE 100 MG CAP PO SCH (17:06)
[2024-02-28] MEDS: MAGNESIUM OXIDE 400 MG TAB PO SCH (17:06)
[2024-02-28] MEDS ORDERED: ALPRAZolam 0.25 MG TAB PO SCH (21:00)
[2024-02-29 06:38] LABS: ALT 20 U/L (4-34); AST 30 U/L (14-36); African American GFR (CKD) 44 (>60 ml/min/1.73 sqM); Albumin 4.3 g/dL (3.5-5.0); Alkaline Phosphatase 148 U/L (38-126); Anion Gap 5 mmol/L; Blood Urea Nitrogen 27 mg/dL (7-17); Calcium 9.9 mg/dL (8.4-10.2); Carbon Dioxide 28 mmol/L (22-30); Chloride 100 mmol/L (98-107); Glucose 102 mg/dL (74-99); Magnesium 1.8 mg/dL (1.6-2.3); Non-African American GFR(CKD) 38 (>60 ml/min/1.73 sqM); Potassium 4.3 mmol/L (3.5-5.1); Sodium 133 mmol/L (137-145); Total Bilirubin 1.4 mg/dL (0.2-1.3); Total Protein 7.2 g/dL (6.3-8.2)
[2024-02-29 06:41] LABS: Basophils # (A) 0.1 k/uL (0-0.2); Basophils % (A) 0 %; Eosinophils # (A) 0.4 k/uL (0-0.7); Eosinophils % (A) 4 %; HCT 43.1 % (34.0-46.0); HGB 14.4 gm/dL (11.4-16.0); Lymphocytes # (A) 2.2 k/uL (1.0-4.8); Lymphocytes % (A) 19 %; MCHC 33.5 g/dL (31.0-37.0); MCV 95.6 fL (80.0-100.0); Mean Platelet Volume 7.6; Monocytes # (A) 0.6 k/uL (0-1.0); Monocytes % (A) 5 %; Neutrophils # (A) 8.4 k/uL (1.3-7.7); Neutrophils % (A) 71 %; Platelet Count 306 k/uL (150-450); RBC 4.51 m/uL (3.80-5.40); RDW 14.3 % (11.5-15.5)
--- NOTE | 2024-02-29 10:50 | P.PN ---
Subjective Progress Note Date: 02/29/24 HISTORY OF PRESENTING ILLNESS 88-year-old female with PMH of difficulty in hearing, hypertension, dyslipi demia, COPD, AAA repair, smoker, COPD on home oxygen, paroxysmal atrial fibrillation. Last she was hospitalized in November 2023 where she was noticed to be in A-fib RVR and for this she was treated with rate control strategy. This time she presented to the hospital because of worsening shortness of breath. Patient reports that even while using nasal cannula oxygen her oxygen saturation was running low and because of increased work of breathing she presented to the hospital. She denies having any active chest pain chest pressure or palpitations. She denies any losing consciousness. She does report that she has stopped using her Lasix because it was making the output from her ostomy to be a bit more harder than usual and she was having abdominal pain and feeling constipated. Admission ECG showed sinus rhythm with PACs, right bundle branch block. Chest x-ray showed mild pulmonary congestion Labs shows hemoglobin 14.2, WBC 11, INR 1, sodium 134, potassium 5.1, creatinine 0.8, magnesium 1.8, troponin 0.02, negative, NT proBNP 3300 Progress note February 29, 2024 Patient was evaluated bedside. She denies having any chest pain chest pressure or shortness of breath. No reported lower extremity swelling. No elevated JVD. Patient is very eager to go home. Her kidney function is trended up creatinine is 1.24 up trended from 0.7 yesterday. She is getting Lasix 40 mg IV twice jhonny ly. PHYSICAL EXAMINATION Vital signs reviewed. Head: Normocephalic. Eyes: Sclerae nonicteric. Neck: Brisk carotid upstroke, no jugular venous distention. Lungs: Clear to auscultation. Heart: Regular rate and rhythm, S1-S2, no S3, no murmur or rub. Abdomen: Soft nontender, positive bowel sounds. Extremities: No edema, intact distal pulses. Neuro: Alert, oritented, no focal deficits. Detailed neuro exam was not performed. ASSESSMENT Mild HFpEF exacerbation likely due to medication noncompliance Mild COPD exacerbation Acute hypoxic respiratory failure Paroxysmal atrial fibrillation, currently in rate controlled Hypertension Dyslipidemia Status post colostomy Echocardiogram November 2023, EF 55%, moderate mitral regurgitation, mild to moderate aortic stenosis, mean gradient 17 mmHg, mild tricuspid regurgitation, PLAN At home she is on Aldactone 25 mg, Lasix 20 mg daily, Eliquis 2.5 mL twice daily, metoprolol succinate 50 mg daily Continue Eliquis 2.5 mg twice daily, metoprolol succinate 50 mg daily, Aldactone 25 mg daily. Discontinue IV Lasix. Hold Lasix today. Avoid any further nephrotoxic medications If kidney function improves tomorrow, consider starting back Lasix 20 mg p.o. daily Objective - Vital Signs Vital signs: Vital Signs Temp 97.9 F 02/29/24 08:10 Pulse 69 02/29/24 08:10 Resp 16 02/29/24 08:10 BP 108/73 02/29/24 08:10 Pulse Ox 94 L 02/29/24 04:00 FiO2 Intake & Output 02/28/24 02/29/24 02/29/24 18:59 06:59 18:59 Intake Total 1120 260 210 Output Total 2140 Balance 1120 -1880 210 Weight 62.7 kg 62.2 kg Intake: IV 20 20 10 Invasive Line 1 20 20 10 Oral 1100 240 200 Output: Urine 2140 Other: Voiding Method Toilet Toilet Toilet # Voids 3 - Labs CBC & Chem 7: 02/29/24 05:48 02/29/24 05:48 Labs: Abnormal Lab Results - Last 24 Hours (Table) 02/29/24 02/29/24 Range/Units 05:48 05:48 WBC 12.0 H (3.8-10.6) k/uL Neutrophils # 8.4 H (1.3-7.7) k/uL Sodium 133 L (137-145) mmol/L BUN 27 H (7-17) mg/dL Creatinine 1.25 H (0.52-1.04) mg/dL Glucose 102 H (74-99) mg/dL Total Bilirubin 1.4 H (0.2-1.3) mg/dL Alkaline Phosphatase 148 H (38-126) U/L
--- NOTE | 2024-02-29 12:27 | P.PN ---
Subjective Progress Note Date: 02/29/24 88-year-old female with a past medical history of A-fib (on Eliquis), COPD, HLD, hypertension, left upper lung lobe removal, colostomy without parastomal hernia presents with worsening shortness of breath. Patient reports for the last 2 weeks she has had increased shortness of breath and increased home O2 requirements. Patient reports she stopped her home Lasix dose 2 weeks ago due to issues it was causing with her ostomy. Patient reports while on Lasix the ostomy would not produce as much stool as it normally would and she would also have increased abdominal pain. Initial lab work from the ER was significant for WBC 11, sodium 134, potassium 5.1, calcium 10.4, T. bili 2.1, AST 63, alkaline phosphatase 130, troponin 0.026, BNP 3370, UA insignificant except for trace leukocyte esterase. EKG done in the ER showed heart rate of 68 bpm, no ST segment elevation or depression seen, no T-wave inversions seen. Sinus rhythm with occasional supraventricular premature complexes ER CXR: Mild cardiomegaly and pulmonary vascular congestion. Patient admitted to internal medicine service 02/28. Patient seen and examined. Blood work done that showed WBC 12, hemoglobin 14.4, sodium 133, BUN 27, creatinine 1.25. Denies any shortness of breath. States she is feeling better. REVIEW OF SYSTEMS: CONSTITUTIONAL: No fever, no malaise,. CARDIOVASCULAR: No chest pain, no palpitations, no syncope. PULMONARY: No shortness of breath, no cough, GASTROINTESTINAL: No diarrhea, no nausea, no vomiting, no abdominal pain. NEUROLOGICAL: No headaches, no weakness, PHYSICAL EXAMINATION: GENERAL: The patient is alert and oriented x3, not in any acute distress. Well developed, well nourished. HEENT: Pupils are round and equally reacting to light. EOMI. No scleral icterus. No conjunctival pallor. Normocephalic, atraumatic. No pharyngeal erythema. No thyromegaly. CARDIOVASCULAR: S1 and S2 present. No murmurs, rubs, or gallops. PULMONARY: Chest is clear to auscultation, no wheezing or crackles. ABDOMEN: Soft, nontender, nondistended, normoactive bowel sounds. No palpable organomegaly. Ostomy seen MUSCULOSKELETAL: No joint swelling or deformity. EXTREMITIES: No cyanosis, clubbing, or pedal edema. NEUROLOGICAL: Gross neurological examination did not reveal any focal deficits. SKIN: No rashes. Assessment and plan # Acute HFpEF exacerbation likely due to medication noncompliance Monitor vital signs Monitor CBC Monitor CMP Daily weights, monitor I's and O's Hold Lasix today, resume from tomorrow. Continue Eliquis, Aldactone, Toprol Cardiology following #Transaminitis: LFTs improved. Chronic: #Atrial fibrillation with RVR: Continue home Eliquis #Hypertension: Continue home Aldactone 25 mg, metoprolol succinate 50 mg daily #Hyperlipidemia: Continue home medication #COPD: Continue home medication Labs and medication were reviewed.. Continue same treatment. Continue with symptomatic treatment. Resume home medication. Monitor labs and vitals. DVT a nd GI prophylaxis. Further recommendations as per clinical course of the patient Dictation was produced using [employer] dictation software. please excuse any grammatical, word or spelling errors. Objective - Vital Signs Vital signs: Vital Signs Temp 97.9 F 02/29/24 08:10 Pulse 69 02/29/24 08:10 Resp 16 02/29/24 08:10 BP 108/73 02/29/24 08:10 Pulse Ox 94 L 02/29/24 04:00 FiO2 Intake & Output 02/28/24 02/29/24 02/29/24 18:59 06:59 18:59 Intake Total 1120 260 210 Output Total 2140 Balance 1120 -1880 210 Weight 62.7 kg 62.2 kg Intake: IV 20 20 10 Invasive Line 1 20 20 10 Oral 1100 240 200 Output: Urine 2140 Other: Voiding Method Toilet Toilet Toilet # Voids 3 - Labs CBC & Chem 7: 02/29/24 05:48 02/29/24 05:48 Labs: Abnormal Lab Results - Last 24 Hours (Table) 02/29/24 02/29/24 Range/Units 05:48 05:48 WBC 12.0 H (3.8-10.6) k/uL Neutrophils # 8.4 H (1.3-7.7) k/uL Sodium 133 L (137-145) mmol/L BUN 27 H (7-17) mg/dL Creatinine 1.25 H (0.52-1.04) mg/dL Glucose 102 H (74-99) mg/dL Total Bilirubin 1.4 H (0.2-1.3) mg/dL Alkaline Phosphatase 148 H (38-126) U/L
[2024-03-01] MEDS: ALBUTEROL NEBULIZED 2.5 MG/3 ML INHALATION PRN (00:14)
[2024-03-01 09:21] LABS: African American GFR (CKD) 54 (>60 ml/min/1.73 sqM); Anion Gap 14 mmol/L; Blood Urea Nitrogen 32 mg/dL (7-17); Calcium 10.3 mg/dL (8.4-10.2); Carbon Dioxide 24 mmol/L (22-30); Chloride 95 mmol/L (98-107); Glucose 196 mg/dL (74-99); Magnesium 1.9 mg/dL (1.6-2.3); Non-African American GFR(CKD) 46 (>60 ml/min/1.73 sqM); Potassium 4.3 mmol/L (3.5-5.1); Sodium 133 mmol/L (137-145)
[2024-03-01 10:12] VITALS: TEMP 97.5
[2024-03-01 12:29] VITALS: BP 155/98; PULSE 70; RESP 17
--- NOTE | 2024-03-01 12:55 | P.PN ---
Subjective HISTORY OF PRESENT ILLNESS: 88-year-old female with PMH of difficulty in hearing, hypertension, dyslipidemia, COPD, AAA repair, smoker, COPD on home oxygen, paroxysmal atrial fibrillation. Last she was hospitalized in November 2023 where she was noticed to be in A-fib RVR and for this she was treated with rate control strategy. This time she presented to the hospital because of worsening shortness of breath. Patient reports that even while using nasal cannula oxygen her oxygen saturation was running low and because of increased work of breathing she presented to the hospital. She denies having any active chest pain chest pressure or palpitations. She denies any losing consciousness. She does report that she has stopped using her Lasix because it was making the output from her ostomy to be a bit more harder than usual and she was having abdominal pain and feeling constipated. Admission ECG showed sinus rhythm with PACs, right bundle branch block. Chest x-ray showed mild pulmonary congestion Labs shows hemoglobin 14.2, WBC 11, INR 1, sodium 134, potassium 5.1, creatinine 0.8, magnesium 1.8, troponin 0.02, negative, NT proBNP 3300 Echocardiogram November 2023, EF 55%, moderate mitral regurgitation, mild to moderate aortic stenosis, mean gradient 17 mmHg, mild tricuspid regurgitation 03/01/2024 Patient examined this morning at the bedside. Patient currently denies chest pain or pressure. She reports improvement in her shortness of breath. She does report shortness of breath when she is not using her oxygen. Vital signs are stable. Creatinine 1.0 today. PHYSICAL EXAM: VITAL SIGNS: Reviewed. GENERAL: Well-developed in no acute distress. NECK: Supple. No JVD or thyromegaly LUNGS: Respirations even and unlabored. Lungs with expiratory wheezing noted. HEART: Regular rate and rhythm. S1 and S2 heard. EXTREMITIES: Normal range of motion. No clubbing or cyanosis. Peripheral pulses intact. No lower extremity edema ASSESSMENT: Shortness of breath Acute COPD exacerbation Acute on chronic heart failure with preserved EF, likely secondary to medication noncompliance Chronic hypoxic respiratory failure, on home oxygen Paroxysmal atrial fibrillation Hypertension Hyperlipidemia History of colostomy placement History of subarachnoid hemorrhage, 2011 History of AAA repair Former nicotine dependence PLAN: Continue current cardiac medications Add Lasix 40 mg daily Patient is currently stable from a cardiac standpoint Patient to follow-up postdischarge with Dr. Wood Nurse practitioner note has been reviewed by physician. Signing provider agrees with the documented findings, assessment, and plan of care documented by FISH PROTECTOR as a scribe. Objective - Vital Signs Vital signs: Vital Signs Temp 97.5 F L 03/01/24 08:45 Pulse 70 03/01/24 12:00 Resp 17 03/01/24 12:00 BP 155/98 03/01/24 12:00 Pulse Ox 94 L 03/01/24 08:39 FiO2 Intake & Output 02/29/24 03/01/24 03/01/24 18:59 06:59 18:59 Intake Total 738 260 368 Balance 738 260 368 Weight 64.5 kg Intake: IV 20 20 10 Invasive Line 1 20 20 10 Oral 718 240 358 Other: Voiding Method Toilet Toilet Toilet # Voids 1 - Labs CBC & Chem 7: 02/29/24 05:48 03/01/24 08:12 Labs: Abnormal Lab Results - Last 24 Hours (Table) 03/01/24 Range/Units 08:12 Sodium 133 L (137-145) mmol/L Chloride 95 L (98-107) mmol/L BUN 32 H (7-17) mg/dL Creatinine 1.07 H (0.52-1.04) mg/dL Glucose 196 H (74-99) mg/dL Calcium 10.3 H (8.4-10.2) mg/dL
[2024-03-01] MEDS: FUROSEMIDE 40 MG TAB PO SCH (13:31)
--- NOTE | 2024-03-02 09:59 | P.DS ---
Providers Date of admission: 02/28/24 00:32 Expected date of discharge: 03/01/24 Attending physician: Anneliese Patel Consults: 02/28/24 10:15 Consult Physician Routine Consulting Provider: Gregorio Lange Consult Reason/Comments: CHF exacerbation Do you want consulting provider notified?: Yes Primary care physician: Aldo Sibley Hospital Course: Final diagnosis -Acute HFpEF exacerbation likely due to medication noncompliance -Transaminitis, improved -History of atrial fibrillation -Hypertension history -Hyperlipidemia -COPD history, not in exacerbation -GI prophylaxis -DVT prophylaxis -Full code Discharge disposition Patient is being discharged in a stable condition with guarded prognosis to home. Patient will follow-up with Dr. Sibley in the outpatient setting upon discharge. Patient is to continue with current diuretic therapy and close outpatient follow-up with cardiology as scheduled. Total time taken is greater than 35 minutes. Hospital course This is a 88-year-old female who was recently admitted with CHF exacerbation being closely monitored with cardiology. Patient had adjustments to medications made and on IV diuretics transition to oral Lasix and will continue on 40 mg daily as she was previously on 20 mg daily. Cardiology has cleared the patient for discharge home recommending outpatient follow-up with her primary web operations lead. Patient did have an echo done most recently in November 2023 with a preserved EF. Patient has been cleared for discharge home. Please refer to cardiology notes for further HPI. Patient reports she has been having issues with her PCP and has been instructed to follow-up this week. Currently no reports of chest pain, no worsening shortness of breath, or palpitations. Patient is afebrile. No reports of nausea or vomiting and patient is tolerating diet. Patient will be discharged home today. Guarded prognosis and high risk for readmissions. Recommend follow-up labs to monitor kidney functions along with LFTs in the outpatient setting. Physical exam: Gen: This is a 88-year-old female who is awake, alert and oriented x 3, well- developed, elderly appearing, extremely hard of hearing HEENT: Head is atraumatic, normocephalic. Pupils equal, round. Sclerae is anicteric. NECK: Supple. No JVD. No lymphadenopathy. No thyromegaly. LUNGS: Diminished breath sounds bilaterally with no wheezes or rhonchi. Faint crackles noted at the bases. No intercostal retractions. HEART: S1, S2 are muffled ABDOMEN: Soft. Thin. Bowel sounds are present. No masses. No tenderness. EXTREMITIES: No pedal edema. No calf tenderness. NEUROLOGICAL: Patient is awake, alert and oriented x3. Cranial nerves 2 through 12 are grossly intact. Please refer to medication reconciliation sheet for a list of medications. The impression and plan of care has been dictated by Naila Parra, Nurse Practitioner as directed. Dr. Jorge MD I have performed a history and examination and MDM of this patient, discussed the same with the dictator, and agree with the dictator's assessment and plan as written ,documented as a scribe. Based on total visit time, I have performed more than 50% of the visit. Patient Condition at Discharge: Fair Plan - Discharge Summary Discharge Rx Participant: Yes New Discharge Prescriptions: New Furosemide [Lasix] 40 mg PO DAILY #30 tab Continue Multivitamins, Thera [Multivitamin (formulary)] 1 tab PO DAILY ALPRAZolam [Xanax] 0.125 mg PO HS Albuterol Inhaler [Ventolin Hfa Inhaler] 2 puff INHALATION RT-QID PRN PRN Reason: Shortness Of Breath Spironolactone 25 mg PO DAILY Fluticasone/Umeclidin/Vilanter [Trelegy Ellipta 200-62.5-25] 1 puff INHALATION RT-DAILY Cyanocobalamin (Vitamin B-12) [Vitamin B-12] 1,000 mcg PO DAILY Docusate [Colace] 100 mg PO DAILY@1700 Magnesium Oxide [Magox 400] 400 mg PO DAILY@1700 Metoprolol Succinate (ER) [Toprol XL] 50 mg PO DAILY #90 tab Apixaban [Eliquis] 2.5 mg PO BID tab Discontinued Furosemide [Lasix] 20 mg PO DAILY@1400 #30 tab Discharge Medication List ALPRAZolam [Xanax] 0.125 mg PO HS 10/31/19 [History] Albuterol Inhaler [Ventolin Hfa Inhaler] 2 puff INHALATION RT-QID PRN 10/31/19 [History] Multivitamins, Thera [Multivitamin (formulary)] 1 tab PO DAILY 10/31/19 [History] Spironolactone 25 mg PO DAILY 10/31/19 [History] Docusate [Colace] 100 mg PO DAILY@1700 11/20/23 [History] Fluticasone/Umeclidin/Vilanter [Trelegy Ellipta 200-62.5-25] 1 puff INHALATION RT-DAILY 11/20/23 [History] Magnesium Oxide [Magox 400] 400 mg PO DAILY@1700 11/20/23 [History] Apixaban [Eliquis] 2.5 mg PO BID tab 11/21/23 [Rx] Metoprolol Succinate (ER) [Toprol XL] 50 mg PO DAILY #90 tab 11/21/23 [Rx] Cyanocobalamin (Vitamin B-12) [Vitamin B-12] 1,000 mcg PO DAILY 02/27/24 [History] Furosemide [Lasix] 40 mg PO DAILY #30 tab 03/01/24 [Rx] Follow up Appointment(s)/Referral(s): Atif Wood MD [Medical Doctor] - 1 Week Aldo Sibley MD [Primary Care Provider] - 1-2 days Patient Instructions/Handouts: Heart Failure (DC) Activity/Diet/Wound Care/Special Instructions: Activity limited until follow-up Follow-up with primary care provider on discharge Follow-up with cardiology in 1 to 2 weeks Continue taking medications as prescribed Discharge Disposition: HOME SELF-CARE
== END 2024-03-01 16:15 | disposition home or self-care (01) ==
LOC: EC 18:47 → 3SCARD 02-28 00:32
PROVIDERS: ADMIT Hospitalist; ATTEND Hospitalist
DX: I50.33 Acute on chronic diastolic (congestive) heart failure (principal); I11.0 Hypertensive heart disease with heart failure; J44.9 Chronic obstructive pulmonary disease, unspecified; J96.21 Acute and chronic respiratory failure with hypoxia; R74.01 Elevation of levels of liver transaminase levels; E78.5 Hyperlipidemia, unspecified; I48.0 Paroxysmal atrial fibrillation; Z91.148 Patient's other noncompliance with medication regimen for other reason; K59.00 Constipation, unspecified; Z93.3 Colostomy status; Z79.01 Long term (current) use of anticoagulants; Z79.899 Other long term (current) drug therapy; Z90.710 Acquired absence of both cervix and uterus; Z87.891 Personal history of nicotine dependence; Z85.41 Personal history of malignant neoplasm of cervix uteri; Z86.79 Personal history of other diseases of the circulatory system
CPT/HCPCS: 96374; 99285; 36415; 94640 ×6; 94760 ×2; 93005; 83880; 80053 ×2; 80048; 83605; 83735 ×3; 84484 ×2; 85025 ×2; 85610; 85730; 81001; 84145; 87636; 71046; G0378 ×3; J1940